=== PATIENT | female | born 1975 | race Caucasian/White ===

== ENCOUNTER 2020-05-30 12:00 | Outpatient (REF) | payer OTHER, SELFPAY ==
--- NOTE | 2020-05-30 | XR_ITS ---
EXAMINATION: XR CHEST CLINICAL INFORMATION: Covid positive COMPARISON: None TECHNIQUE: 2 views of the chest were obtained. FINDINGS: The cardiac and mediastinal contours are normal. The lungs are well inflated. The lungs are clear. There is no pleural effusion or pneumothorax. Bony structures are unremarkable. XR/XR chest 2V IMPRESSION: Unremarkable examination.
[2020-05-30 14:12] LABS: MANUAL DIFF FLAG NO
[2020-05-30 14:25] LABS: Basophils Percent Auto 0.4 % (0-2); Eosinophils Absolute Auto 0.1 X10*3/uL (0.0-0.4); Eosinophils Percent Auto 2.1 % (0-4); Hematocrit 43.8 % (37-47); Hemoglobin 14.2 g/dl (12.0-16.0); Imm Gran Abs Auto 0.02 X10*3/uL (0.00-0.03); Imm Gran Pct Auto 0.4 % (0.0-0.4); Lymphocytes Absolute Auto 1.3 X10*3/uL (1.2-4.9); Lymphocytes Percent Auto 25.8 % (20-40); Mean Corpuscular HGB Conc 32.4 g/dl (31.0-35.0); Mean Corpuscular Hemoglobin 29.2 pg (27.0-33.0); Mean Corpuscular Volume 90.1 fL (80-98); Mean Platelet Volume 10.2 fL (9.4-12.3); Monocytes Absolute Auto 0.4 X10*3/uL (0.1-1.2); Monocytes Percent Auto 8.3 % (2-11); Neutrophils Absolute Auto 3.3 X10*3/uL (2.0-8.3); Platelet Count 344 X10*3/uL (160-400); Red Blood Count 4.86 X10*6/uL (4.20-5.50); Red Cell Distribution Width 11.9 % (11.0-16.0); White Blood Count 5.2 X10*3/uL (4.8-10.8)
[2020-05-30 14:38] LABS: Alanine Aminotransferase 81 U/L (0-31); Alkaline Phosphatase 96 U/L (39-117); Anion Gap 12 (12-20); Aspartate Amino Transferase 28 U/L (5-31); Bilirubin Total 0.8 mg/dL (0.0-1.0); Blood Urea Nitrogen 17 mg/dL (9-16); C Reactive Protein 0.73 mg/dL (< or = 0.50); Calcium 8.7 mg/dL (8.4-10.2); Carbon Dioxide 31 mmol/L (22-29); Chloride 102 mmol/L (96-108); Estimated Glomerular Filt Rate > 60; Glucose Random 87 mg/dL (60-115); Potassium 3.4 mmol/l (3.3-5.1); Sodium 142 mmol/L (135-145); Total Protein 6.7 g/dL (6.5-8.0)
[2020-05-30 16:18] LABS: Erythrocyte Sedimentation Rate 26 MM/HR (0-20)
== END 2020-05-30 12:01 | disposition home or self-care (01) ==
LOC: HO.HMGCX 12:00
PROVIDERS: PCP Internal Medicine; Visit Provider Internal Medicine
DX: U07.1 COVID-19 (principal)
CPT/HCPCS: 36415; 71046; 80053; 85025; 85652; 86140

== ENCOUNTER 2020-08-19 08:50 | Outpatient (REF) | payer OTHER, SELFPAY ==
--- NOTE | ~2020-08-19 | MM_ITS ---
EXAMINATION: MM SCREENING DIGITAL BREAST TOMOSYNTHESIS, BILATERAL CLINICAL INFORMATION: Screening. Asymptomatic. The lifetime risk of breast cancer based on the Tyrer-Cuzick Model is 12%. COMPARISON: Mammography: 08/14/2019, 08/01/2018, 08/05/2015 TECHNIQUE: Digital breast tomosynthesis is performed in both the craniocaudal and mediolateral oblique views along with computer-aided detection (CAD). Synthesized 2D images are generated from the tomosynthesis. FINDINGS: There are scattered areas of fibroglandular density (ACR BI-RADS breast composition Category b). The right breast appears similar to prior exam with no developing density or interval mass or architectural abnormality. Neither breast shows abnormal calcifications. The bilateral axilla and skin contours are unremarkable. The left MLO view has asymmetric density posterior breast central aspect along posterior nipple line 7 cm from nipple. This may represent summation artifact. Patient will be recalled for additional imaging. MM/MM tomosynthesis screening BI IMPRESSION: 1. Left: Asymmetric density on MLO view 7 cm from nipple, possibly summation artifact or inhomogeneous glandular compression. 2. Right: No mammographic evidence of malignancy. ASSESSMENT: BI-RADS 0: Incomplete - Need Additional Imaging Evaluation RECOMMENDATION: 1. Additional views of the left breast (3-D spot MLO, 3-D ML). 2. Targeted ultrasound if warranted after review of the additional views. 3. Radiology department staff will contact the patient for additional imaging. This patient's information was entered into a reminder system with a target due date for their next mammogram.
== END 2020-08-19 08:51 | disposition home or self-care (01) ==
LOC: HO.MAMMO 08:50
PROVIDERS: PCP Internal Medicine; Visit Provider Internal Medicine
DX: Z12.31 Encounter for screening mammogram for malignant neoplasm of breast (principal)
CPT/HCPCS: 77063; 77067

== ENCOUNTER 2020-09-21 12:56 | Outpatient (REF) | payer OTHER, SELFPAY ==
--- NOTE | ~2020-09-21 | US_ITS ---
EXAMINATION: US DIAGNOSTIC ULTRASOUND BREAST, LEFT CLINICAL INFORMATION: Density deep. COMPARISON: Mammography of same day as well as August 19, 2020 and studies dating back to August 05, 2015. TECHNIQUE: Ultrasound of the breast is performed with real-time lomeli scale imaging and color Doppler. FINDINGS: Targeted left breast ultrasound demonstrated a few scattered simple cyst. No suspicious cystic or solid mass or region of abnormal distal sound shadowing was appreciated. Results are discussed with the patient at time of visit. US/US breast LT limited IMPRESSION: Some persistence of density but similar in appearance to study of July 2015 on nontomosynthesis images. Recommend 6 month follow-up left breast mammogram. ASSESSMENT: BI-RADS 3: Probably Benign RECOMMENDATION: Diagnostic mammography in 6 months.
--- NOTE | ~2020-09-21 | MM_ITS ---
EXAMINATION: MM DIAGNOSTIC DIGITAL BREAST TOMOSYNTHESIS, LEFT US BREAST, LEFT TARGETED CLINICAL INFORMATION: Asymmetric density deep left breast on mediolateral oblique study. COMPARISON: Mammography: 08/19/2020 and studies dating back to 08/04/2015 TECHNIQUE: Digital breast tomosynthesis is performed. 2D images are generated from the tomosynthesis. The following views are obtained: Full-field 90 degree mediolateral view, spot compression exaggerated craniocaudal, mediolateral oblique views. Targeted left breast ultrasound. FINDINGS: There are scattered areas of fibroglandular density (ACR BI-RADS breast composition Category b). There is persistence of a density in the deep central aspect of the left breast but is similar in appearance to mediolateral oblique view of study of 08/04/2015. Targeted left breast ultrasound demonstrated a few scattered simple cysts. No suspicious cystic or solid mass or region of abnormal distal sound shadowing was appreciated. Results are discussed with the patient at time of visit. MM/MM tomosynthesis added views L IMPRESSION: Some persistence of density but similar in appearance to study of July 2015 on nontraumatic images. Recommend 6-month follow-up left breast mammogram. ASSESSMENT: BI-RADS 3: Probably Benign RECOMMENDATION: Diagnostic mammography in 6 months. This patient's information was entered into a reminder system with a target due date for their next mammogram.
== END 2020-09-21 12:57 | disposition home or self-care (01) ==
LOC: HO.MAMMO 12:56
PROVIDERS: PCP Internal Medicine; Visit Provider Internal Medicine
DX: R92.2 Inconclusive mammogram (principal)
CPT/HCPCS: 76642; 77061; 77065

== ENCOUNTER 2021-03-26 12:23 | Outpatient (REF) | payer OTHER, SELFPAY ==
--- NOTE | ~2021-03-26 | MM_ITS ---
EXAMINATION: MM DIAGNOSTIC DIGITAL BREAST TOMOSYNTHESIS, LEFT CLINICAL INFORMATION: Short interval six-month follow-up probable normal fibroglandular tissue, prior recall for question of asymmetric density. The lifetime risk of breast cancer based on the Tyrer-Cuzick Model is 11%. COMPARISON: Mammography: 09/21/2020, 08/19/2020 (BI-RADS 0, 08/14/2019, 08/01/2018, 08/05/2015 TECHNIQUE: Digital breast tomosynthesis is performed in both the craniocaudal and mediolateral oblique views along with computer-aided detection (CAD). Synthesized 2D images are generated from the tomosynthesis. Additional exaggerated left CC view is provided. FINDINGS: There are scattered areas of fibroglandular density (ACR BI-RADS breast composition Category b). Parenchymal pattern is similar to prior studies dating back to 2016 as noted on prior exam. There is no developing density or interval mass or architectural abnormality. No significant changes. Results are provided to the patient at time of visit by the technologist. MM/MM tomosynthesis diagnostic LT IMPRESSION: No mammographic evidence of malignancy. ASSESSMENT: BI-RADS 2: Benign RECOMMENDATION: Routine annual mammography screening. This patient's information was entered into a reminder system with a target due date for their next mammogram.
== END 2021-03-26 12:24 | disposition home or self-care (01) ==
LOC: HO.MAMMO 12:23
PROVIDERS: PCP Internal Medicine; Visit Provider Internal Medicine
DX: R92.2 Inconclusive mammogram (principal)
CPT/HCPCS: 77061; 77065

== ENCOUNTER 2021-04-30 12:26 | Outpatient (REF) | payer OTHER, SELFPAY ==
--- NOTE | ~2021-04-30 | XR_ITS ---
EXAMINATION: XR HAND RT MIN 3V XR HAND LT MIN 3V XR SHOULDER LT MIN 2V CLINICAL INFORMATION: Pain COMPARISON: None. TECHNIQUE: PA, oblique and lateral views of each hand 4 views of the left shoulder FINDINGS: Right hand: There is erosion at the radial base of the second proximal phalanx with overhanging edges. There is complete obliteration of the second fourth distal interphalangeal joints and narrowing of the third and fifth distal interphalangeal joint spaces. Central erosive changes present within the second and fourth distal interphalangeal joints. Mild degenerative change of the first carpometacarpal joint. Soft tissues unremarkable. Left hand: Mild joint space narrowing throughout the distal interphalangeal joints. No erosive changes. Mild degenerative changes of the first carpometacarpal joint. Left shoulder: No acute fracture or dislocation. Small marginal osteophytes along the acromioclavicular joint with mild erosive changes evident at the distal clavicular articular surface. Glenohumeral joint unremarkable. Soft tissues unremarkable. XR/XR hand LT min 3V IMPRESSION: * Nonspecific erosion at the radial base of the RIGHT second proximal phalanx with overhanging edges, the appearance of which can be seen in association with gout, although this singular finding in isolation would be unusual for gout. * Degenerative changes present throughout the distal interphalangeal joints with central erosions evident within the RIGHT second and fourth distal interphalangeal joints. This raises the possibility of erosive osteoarthritis. * Mild degenerative changes of the LEFT acromioclavicular joint, with mild distal clavicular osteolysis evident.
--- NOTE | ~2021-04-30 | XR_ITS ---
EXAMINATION: XR HAND RT MIN 3V XR HAND LT MIN 3V XR SHOULDER LT MIN 2V CLINICAL INFORMATION: Pain COMPARISON: None. TECHNIQUE: PA, oblique and lateral views of each hand 4 views of the left shoulder FINDINGS: Right hand: There is erosion at the radial base of the second proximal phalanx with overhanging edges. There is complete obliteration of the second fourth distal interphalangeal joints and narrowing of the third and fifth distal interphalangeal joint spaces. Central erosive changes present within the second and fourth distal interphalangeal joints. Mild degenerative change of the first carpometacarpal joint. Soft tissues unremarkable. Left hand: Mild joint space narrowing throughout the distal interphalangeal joints. No erosive changes. Mild degenerative changes of the first carpometacarpal joint. Left shoulder: No acute fracture or dislocation. Small marginal osteophytes along the acromioclavicular joint with mild erosive changes evident at the distal clavicular articular surface. Glenohumeral joint unremarkable. Soft tissues unremarkable. XR/XR shoulder LT min 2V IMPRESSION: * Nonspecific erosion at the radial base of the RIGHT second proximal phalanx with overhanging edges, the appearance of which can be seen in association with gout, although this singular finding in isolation would be unusual for gout. * Degenerative changes present throughout the distal interphalangeal joints with central erosions evident within the RIGHT second and fourth distal interphalangeal joints. This raises the possibility of erosive osteoarthritis. * Mild degenerative changes of the LEFT acromioclavicular joint, with mild distal clavicular osteolysis evident.
--- NOTE | ~2021-04-30 | XR_ITS ---
EXAMINATION: XR HAND RT MIN 3V XR HAND LT MIN 3V XR SHOULDER LT MIN 2V CLINICAL INFORMATION: Pain COMPARISON: None. TECHNIQUE: PA, oblique and lateral views of each hand 4 views of the left shoulder FINDINGS: Right hand: There is erosion at the radial base of the second proximal phalanx with overhanging edges. There is complete obliteration of the second fourth distal interphalangeal joints and narrowing of the third and fifth distal interphalangeal joint spaces. Central erosive changes present within the second and fourth distal interphalangeal joints. Mild degenerative change of the first carpometacarpal joint. Soft tissues unremarkable. Left hand: Mild joint space narrowing throughout the distal interphalangeal joints. No erosive changes. Mild degenerative changes of the first carpometacarpal joint. Left shoulder: No acute fracture or dislocation. Small marginal osteophytes along the acromioclavicular joint with mild erosive changes evident at the distal clavicular articular surface. Glenohumeral joint unremarkable. Soft tissues unremarkable. XR/XR hand RT min 3V IMPRESSION: * Nonspecific erosion at the radial base of the RIGHT second proximal phalanx with overhanging edges, the appearance of which can be seen in association with gout, although this singular finding in isolation would be unusual for gout. * Degenerative changes present throughout the distal interphalangeal joints with central erosions evident within the RIGHT second and fourth distal interphalangeal joints. This raises the possibility of erosive osteoarthritis. * Mild degenerative changes of the LEFT acromioclavicular joint, with mild distal clavicular osteolysis evident.
[2021-04-30 13:56] LABS: MANUAL DIFF FLAG NO
[2021-04-30 14:00] LABS: Basophils Percent Auto 0.3 % (0-2); Eosinophils Absolute Auto 0.2 X10*3/uL (0.0-0.4); Eosinophils Percent Auto 3.1 % (0-4); Hemoglobin 14.2 g/dl (12.0-16.0); Imm Gran Abs Auto 0.03 X10*3/uL (0.00-0.03); Imm Gran Pct Auto 0.5 % (0.0-0.4); Lymphocytes Absolute Auto 1.4 X10*3/uL (1.2-4.9); Lymphocytes Percent Auto 24.4 % (20-40); Mean Corpuscular HGB Conc 32.3 g/dl (31.0-35.0); Mean Corpuscular Hemoglobin 29.8 pg (27.0-33.0); Mean Corpuscular Volume 92.2 fL (80.0-98.0); Mean Platelet Volume 9.7 fL (9.4-12.3); Monocytes Absolute Auto 0.4 X10*3/uL (0.1-1.2); Monocytes Percent Auto 6.6 % (2-11); Neutrophils Absolute Auto 3.8 x10*3/uL (2.0-8.3); Neutrophils Percent Auto 65.1 % (45-73); Platelet Count 341 X10*3/uL (160-400); Red Blood Count 4.77 X10*6/uL (4.20-5.50); Red Cell Distribution Width 12.3 % (11.0-16.0); White Blood Count 5.9 X10*3/uL (4.8-10.8)
[2021-04-30 14:18] LABS: Alanine Aminotransferase 57 U/L (0-31); Albumin Level 4.1 g/dL (3.5-5.0); Alkaline Phosphatase 100 U/L (39-117); Anion Gap 11 (12-20); Aspartate Amino Transferase 26 U/L (5-31); Bilirubin Total 0.5 mg/dL (0.0-1.0); Blood Urea Nitrogen 10 mg/dL (9-16); C Reactive Protein 1.24 mg/dL (< or = 0.50); Calcium 8.7 mg/dL (8.4-10.2); Carbon Dioxide 27 mmol/L (22-29); Chloride 108 mmol/L (96-108); Cholesterol 199 mg/dL; Estimated Glomerular Filt Rate > 60; Glucose Fasting 96 mg/dL (60-99); HDL Cholesterol 42 mg/dL; LDL Cholesterol Calculated 140 mg/dl; Potassium 4.1 mmol/L (3.3-5.1); Rheumatoid Factor < 15.0 IU/mL (<15.0); Sodium 142 mmol/L (135-145); Total Protein 6.8 g/dL (6.5-8.0); Triglycerides 87 mg/dL
[2021-04-30 14:39] LABS: Vitamin D 25-OH Total 33.9 ng/mL (>30)
[2021-04-30 14:53] LABS: Erythrocyte Sedimentation Rate 25 MM/HR (0-20)
== END 2021-04-30 12:27 | disposition home or self-care (01) ==
LOC: HO.HMGCLDS 12:26
PROVIDERS: Visit Provider Internal Medicine
DX: M25.512 Pain in left shoulder (principal); M25.541 Pain in joints of right hand; M79.645 Pain in left finger(s); I10 Essential (primary) hypertension; E03.9 Hypothyroidism, unspecified
CPT/HCPCS: 36415; 73030; 73130; 80053; 80061; 82306; 84443; 85025; 85652; 86140; 86431

== ENCOUNTER 2021-08-07 14:53 | Emergency (ER) | payer OTHER, SELFPAY ==
--- NOTE | ~2021-08-07 | XR_ITS ---
EXAMINATION: XR CHEST CLINICAL INFORMATION: Left-sided chest pain radiating to shoulder COMPARISON: Previous chest x-ray May 2020 TECHNIQUE: Frontal view of the chest was obtained. FINDINGS: No significant abnormality is noted involving the heart, lungs, mediastinum, bony thorax or soft tissues. XR/XR chest 1V IMPRESSION: Unremarkable examination.
--- NOTE | 2021-08-07 15:00 | ECG_ITS ---
Test Reason : chest pain Blood Pressure : / mmHG Vent. Rate : 094 BPM Atrial Rate : 094 BPM P-R Int : 142 ms QRS Dur : 076 ms QT Int : 346 ms P-R-T Axes : 000 009 044 degrees QTc Int : 432 ms Normal sinus rhythm Nonspecific ST abnormality Abnormal ECG When compared with ECG of 20-MAR-2003 00:00, Vent. rate has increased BY 35 BPM Nonspecific T wave abnormality now evident in Lateral leads Referred By: Generic ED Physician Electronically Signed By:Dejuan Tierney
[2021-08-07 16:15] VITALS: BP 141/93; PULSE 91; RESP 18; TEMP 37; O2SAT 99; BMI 29.5
[2021-08-07 16:55] LABS: MANUAL DIFF FLAG NO
[2021-08-07 16:58] LABS: Basophils Percent Auto 0.3 % (0-2); Eosinophils Absolute Auto 0.2 X10*3/uL (0.0-0.4); Eosinophils Percent Auto 2.8 % (0-4); Hematocrit 44.2 % (37.0-47.0); Hemoglobin 14.4 g/dl (12.0-16.0); Imm Gran Abs Auto 0.01 X10*3/uL (0.00-0.03); Imm Gran Pct Auto 0.2 % (0.0-0.4); Lymphocytes Absolute Auto 1.5 X10*3/uL (1.2-4.9); Lymphocytes Percent Auto 25.5 % (20-40); Mean Corpuscular HGB Conc 32.6 g/dl (31.0-35.0); Mean Corpuscular Hemoglobin 29.8 pg (27.0-33.0); Mean Corpuscular Volume 91.3 fL (80.0-98.0); Mean Platelet Volume 9.5 fL (9.4-12.3); Monocytes Absolute Auto 0.5 X10*3/uL (0.1-1.2); Monocytes Percent Auto 8.5 % (2-11); Neutrophils Absolute Auto 3.6 x10*3/uL (2.0-8.3); Neutrophils Percent Auto 62.7 % (45-73); Platelet Count 301 X10*3/uL (160-400); Red Blood Count 4.84 X10*6/uL (4.20-5.50); Red Cell Distribution Width 12.6 % (11.0-16.0); White Blood Count 5.8 X10*3/uL (4.8-10.8)
[2021-08-07 17:10] LABS: Alanine Aminotransferase 29 U/L (0-31); Albumin Level 4.2 g/dL (3.5-5.0); Alkaline Phosphatase 75 U/L (39-117); Anion Gap 12 (12-20); Aspartate Amino Transferase 19 U/L (5-31); Bilirubin Total 0.6 mg/dL (0.0-1.0); Blood Urea Nitrogen 18 mg/dL (9-16); Calcium 9.7 mg/dL (8.4-10.2); Carbon Dioxide 29 mmol/L (22-29); Chloride 103 mmol/L (96-108); Creatinine Clr Calc Pharmacy 97.2; Estimated Glomerular Filt Rate > 60; Glucose Random 93 mg/dL (60-115); Potassium 3.8 mmol/L (3.3-5.1); Sodium 140 mmol/L (135-145); Total Protein 7.1 g/dL (6.5-8.0)
[2021-08-07 17:15] LABS: Troponin-I High Sensitivity < 3.5 ng/L (<3.5-17.0)
--- NOTE | 2021-08-07 20:32 | ED_ITS ---
HPI - Chest Pain General Chief Complaint: Chest Pain Stated Complaint: chest discomfort/pain in left shoulder Time Seen by Provider: 08/07/21 20:07 Source: patient and family (, [place]) Mode of arrival: ambulatory Limitations: no limitations History of Present Illness HPI narrative: 46-year-old female who presents emergency department for evaluation of chest pain x1 and half weeks. She describes the chest pain as a heaviness in the center of her chest with a sharp pain under her left clavicle and left chest radiating to her left shoulder. She states the pain is 8/10 at its worst. states that the chest pain has been intermittent over the past 1 and half weeks. She states that the pain comes on frequently and lasts seconds to minutes. She states that today the pain was coming on every 30 minutes and lasting 1-2 minutes at the most. She denied associated dizziness, lightheadedness, diaphoresis, nausea, vomiting. She states she does have some dyspnea on exertion but denies shortness of breath at rest. She states she has had increased fatigue. The patient states that she works for [employer] and she works 14 hour days working on [employer]. 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 She states that occasionally she notices swelling in her legs but she has had no pain in her legs. Patient states that she does have shoulder pain occasional eyes difficulty putting her shirt on has difficulty lifting her left shoulder overhead. She states that she takes Celebrex for joint pain. MD complaint: chest pain and chest heaviness Onset (ago): week(s) (1.5) Timing of current episode: episodic Prior episodes: No Onset: other (Not related to activity level) Pain location: substernal and left chest Pain radiation: left arm (Left shoulder) Severity: severe Pain scale (0-10): 8 Quality: heaviness and sharp Relieving factors: nothing Exacerbating factors: nothing Associated symptoms: dyspnea Treatment prior to arrival: none Risk Factors Coronary artery disease risk factors: hypertension Related Data Allergies Allergy/AdvReac Type Severity Reaction Status Date / Time No Known Allergies Allergy Verified 08/07/21 16:15 [No Known Allergies*] Review of Systems Review of Systems: Yes all other systems are reviewed and are negative [facility] Past Medical History [facility] Narrative: Past medical history: Hypertension, GERD, hypothyroidism, TIA when she was in her 20s, diverticulitis. Past surgical history: Hysterectomy 2 years prior, bowel resection 5 years prior secondary to recurrent diverticulitis. Social history: She is in her asthma is here in the emergency department with her. She denies tobacco use. She states she occasionally drinks alcohol. She denies drug use. Medical History TIA (transient ischemic attack) Social History Social History Advance Directives: No Physical Exam 2 Vital Signs: Vital Signs: Last Vital Signs Temp 98.6 F 08/07/21 16:15 Pulse 91 08/07/21 16:15 Resp 18 08/07/21 16:15 BP 141/93 H 08/07/21 16:15 Pulse Ox 99 08/07/21 16:15 BMI result Body Mass Index 29.5 Const: General: cooperative and no acute distress Orientation/consciousness: oriented to person and oriented to place Limitations: no limitations HENMT: Head: Yes normal to inspection, Yes normocephalic and Yes atraumatic Ears: external ears normal General nose exam: Normal external nose present Face and sinus: Yes normal facial exam Mouth: Normal oral and palatal mucosa present Throat: Yes posterior oropharynx normal Eyes: General: appearance normal, both eyes and all related structures Pupils: Equal, round and reactive pupils present Neck: Neck: Yes normal visual inspection, Yes no lymphadenopathy, Yes trachea midline and Yes supple Chest: Chest palpation & inspection: normal inspection of the chest and tende rness sternum ([id number]) and costochondral junction (Moderate, left chest) Resp: Effort & Inspection: normal respiratory effort and able to speak in complete sentences Auscultation: clear to auscultation bilaterally Cardio: Rate: regular rate Rhythm: regular rhythm Heart sounds: S1 normal heart sound present, S2 normal heart sound present and no murmurs GI: Inspection: Yes normal to inspection Palpation (GI): Soft to palpation, nontender and no guarding Auscultation: normal bowel sounds : General: Yes no CVA tenderness Back/Spine/Pelvis: Back: no CVA tenderness Skin: General skin exam: no rashes or lesions noted Neuro: General: oriented to person and oriented to place Cranial nerves: Yes CN's II-XII intact bilaterally and Yes Equal, round and reactive pupils present Cognition (Neuro): normal cognition Motor exam (neuro): 5/5 motor strength present throughout Extrem: General: Yes normal to inspection Psych: Appearance: grossly normal Speech and movement: Normal speech and movement present Affect: normal affect Attitude: cooperative Thought process: Normal thought process present Thought content: Normal thought content present Course Course Course Narrative: 46-year-old female who presents emergency department for evaluation of left- sided chest pain radiating to her left shoulder x1 half weeks. The patient has had multiple episodes per day that are not associated with her exertion level. The episodes will last minutes. She states that today the episodes were more frequent, this concerned her and she came to the emergency department for evaluation. Patient's only significant cardiac risk factor is hypertension. The patient initial vital signs revealed a blood pressure of 141/93 with an O2 saturation of 99% on room air. Patient's chest wall exam did reveal tenderness palpation of her sternum and left chest costochondral joints. The patient had a CBC, CMP and high sensitivity troponin. These tests were unremarkable and the troponin was below detectable limits which is very reassuring. Twelve EKG revealed no acute abnormalities and the chest x-ray revealed no acute abnormalities to explain her pain. At this time, I believe that the patient's pain is more consistent with costochondritis and is very atypical for coronary artery disease. Also I do not think that she has a P is the cause of her symptoms given her description of the pain. Patient was advised to stop her Celebrex for 4 days. She was advised to take ibuprofen and Tylenol the next 4 days. She is to apply ice and heat to her chest wall to see if this improves pain. She was given printed and verbal instructions and advised return emergency department her symptoms get worse or stools any symptoms that are concerning to her. MDM - Chest Pain Lab Data Result diagrams: 08/07/21 16:49 08/07/21 16:49 Labs: Lab Results 08/07/21 08/07/21 08/07/21 Range/Units 16:49 16:49 16:49 WBC 5.8 (4.8-10.8) X10*3/uL RBC 4.84 (4.20-5.50) X10*6/uL Hgb 14.4 (12.0-16.0) g/dl Hct 44.2 (37.0-47.0) % MCV 91.3 (80.0-98.0) fL MCH 29.8 (27.0-33.0) pg MCHC 32.6 (31.0-35.0) g/dl RDW 12.6 (11.0-16.0) % Plt Count 301 (160-400) X10*3/uL MPV 9.5 (9.4-12.3) fL Immature Gran % (Auto) 0.2 (0.0-0.4) % Neut % (Auto) 62.7 (45-73) % Lymph % (Auto) 25.5 (20-40) % Cook % (Auto) 8.5 (2-11) % Eos % (Auto) 2.8 (0-4) % Baso % (Auto) 0.3 (0-2) % Lymph # (Auto) 1.5 (1.2-4.9) X10*3/uL Cook # (Auto) 0.5 (0.1-1.2) X10*3/uL Eos # (Auto) 0.2 (0.0-0.4) X10*3/uL Baso # (Auto) 0.0 (0.0-0.2) X10*3/uL Abs Immat Gran (auto) 0.01 (0.00-0.03) X10*3/uL Absolute Neuts (auto) 3.6 (2.0-8.3) x10*3/uL Absolute Nucleated RBC 0.000 (0.0-0.012) X10*3/uL Nucleated RBC % (auto) 0.0 (0.0-0.2) /100WBC Sodium 140 (135-145) mmol/L Potassium 3.8 (3.3-5.1) mmol/L Chloride 103 (96-108) mmol/L Carbon Dioxide 29 (22-29) mmol/L Anion Gap 12 (12-20) BUN 18 H (9-16) mg/dL Creatinine 0.83 (0.5-1.4) mg/dL Estim Creat Clear Calc 97.2 Estimated GFR > 60 Random Glucose 93 (60-115) mg/dL Calcium 9.7 D (8.4-10.2) mg/dL Total Bilirubin 0.6 (0.0-1.0) mg/dL AST 19 (5-31) U/L ALT 29 (0-31) U/L Alkaline Phosphatase 75 D (39-117) U/L Troponin I High Sens < 3.5 (<3.5-17.0) ng/L Total Protein 7.1 (6.5-8.0) g/dL Albumin 4.2 (3.5-5.0) g/dL ECG Data ECG #1: Interpretation: 1527: Normal sinus rhythm rate of 94, normal MA interval, QRS duration QTC interval, no ST segment elevation, no ST segment depression, no PACs, no PVCs, no Q-waves. This is a normal EKG. Discharge Plan Discharge Clinical Impression: Atypical chest pain, Acute costochondritis Patient Disposition: Home, Self-Care Instructions: Costochondritis (ED) Additional Instructions: Your EKG was normal. Your chest x-ray was unremarkable. Your high sensitivity troponin I was below detectable limits which is reassuring suggesting that you have not had a heart attack as the cause of your chest pain. Your complete blood count (CBC) and comprehensive metabolic panel (CMP) was also unremarkable. Your exam did reveal tenderness with push of your left chest wall and that I believe that your pain is caused by inflammation of your chest joints (costochondritis). Stop taking Celebrex for 4 days. Take ibuprofen 200 mg pills, 3 pills every 6 hours as needed for pain. Take Tylenol (acetaminophen) 500 mg pills, 2 pills every 4 to 6 hours as needed for pain. Back Pain Discharge Instructions: Apply ice for 15 minutes to the area that hurts on your chest, then apply a heating a pad on low for 15 minutes. Do this 4-6 times a day to help reduce the pain in your chest. Continue with normal activities as tolerated since staying in bed and not moving around will make your pain worse. Please return to the Emergency Department or see your doctor immediately if your symptoms get worse or if you develop any new symptoms that are concerning you. Follow up with your doctor in 2 day. Please read the other printed discharge instructions on costochondritis. Please see the work note Stand Alone Forms: Work/School Release
== END 2021-08-07 20:53 | disposition home or self-care (01) ==
PROVIDERS: Emergency Provider Emergency Medicine Emergency Medical Services; PCP Internal Medicine
DX: R07.89 Other chest pain (principal); M94.0 Chondrocostal junction syndrome [Tietze]; M25.512 Pain in left shoulder; R06.02 Shortness of breath; Z79.899 Other long term (current) drug therapy
CPT/HCPCS: 36415; 71045; 80053; 84484; 85025; 93005; 99283

== ENCOUNTER 2021-08-25 10:02 | Outpatient (REF) | payer OTHER, SELFPAY ==
--- NOTE | ~2021-08-25 | MM_ITS ---
EXAMINATION: MM SCREENING DIGITAL BREAST TOMOSYNTHESIS, BILATERAL CLINICAL INFORMATION: Screening. Asymptomatic. The lifetime risk of breast cancer based on the Tyrer-Cuzick Model is 10.6%. COMPARISON: Mammography: March 26, 2021 and studies dating back to August 05, 2015 TECHNIQUE: Digital breast tomosynthesis is performed in both the craniocaudal and mediolateral oblique views along with computer-aided detection (CAD). Synthesized 2D images are generated from the tomosynthesis. FINDINGS: There are scattered areas of fibroglandular density (ACR BI-RADS breast composition Category b). There is a stable parenchymal pattern of the right breast. Within the deep medial aspect of the left breast there is a 7 mm poorly circumscribed density approximately 7 cm from the nipple for which spot compression view is recommended. MM/MM tomosynthesis screening BI IMPRESSION: Medial left breast density for further evaluation with spot compression view and possible ultrasound. ASSESSMENT: BI-RADS 0: Incomplete - Need Additional Imaging Evaluation RECOMMENDATION: 1. Additional views of the left breast 2. Targeted ultrasound if warranted after review of the additional views. 3. Radiology department staff will contact the patient for additional imaging. This patient's information was entered into a reminder system with a target due date for their next mammogram.
== END 2021-08-25 10:03 | disposition home or self-care (01) ==
LOC: HO.MAMMO 10:02
PROVIDERS: PCP Internal Medicine; Visit Provider Internal Medicine
DX: Z12.31 Encounter for screening mammogram for malignant neoplasm of breast (principal)
CPT/HCPCS: 77063; 77067

== ENCOUNTER 2021-09-10 14:32 | Outpatient (REF) | payer OTHER, SELFPAY ==
--- NOTE | ~2021-09-10 | MM_ITS ---
EXAMINATION: MM DIAGNOSTIC DIGITAL BREAST TOMOSYNTHESIS, LEFT US DIAGNOSTIC ULTRASOUND BREAST, LEFT CLINICAL INFORMATION: Recall from screening for waxing and waning nodularity posterior medial breast. COMPARISON: Mammography: 08/25/2021, 03/26/2021, 09/21/2020, 08/19/2020, 08/14/2019, targeted left breast ultrasound 09/21/2020. TECHNIQUE: Digital breast tomosynthesis is performed. 2D images are generated from the tomosynthesis. The following views are obtained: Spot CC, standard ML. Ultrasound left breast is targeted to the posterior medial breast using grayscale imaging and color Doppler without and with harmonics. FINDINGS: There are scattered areas of fibroglandular density (ACR BI-RADS breast composition Category b). The additional views confirm a smooth 4 mm circumscribed nodule posterior 9:00 left breast. In retrospect, finding is also suggested on tomography 2020 and 2019, previously 3 mm. There is no spiculation or associated calcification. Ultrasound demonstrates a simple cyst 9:00 position 7 cm from nipple measuring 4 x 3 mm. Cyst is anechoic and circumscribed and there is mild increased through-transmission of sound. No peripheral or internal color flow. This corresponds to the finding on mammography. Results are discussed with the patient at time of visit. MM/MM tomosynthesis added views L IMPRESSION: Small cyst posterior medial left breast corresponding to mammography. ASSESSMENT: BI-RADS 2: Benign RECOMMENDATION: Routine annual mammography screening. This patient's information was entered into a reminder system with a target due date for their next mammogram.
== END 2021-09-10 14:33 | disposition home or self-care (01) ==
LOC: HO.MAMMO 14:32
PROVIDERS: PCP Internal Medicine; Visit Provider Internal Medicine
DX: N63.20 Unspecified lump in the left breast, unspecified quadrant (principal)
CPT/HCPCS: 76642; 77061; 77065

== ENCOUNTER 2022-03-25 13:52 | Outpatient (REF) | payer BC, SELFPAY ==
--- NOTE | ~2022-03-25 | US_ITS ---
EXAMINATION: US VENOUS ULTRASOUND WITH DOPPLER LOWER EXTREMITY, LEFT CLINICAL INFORMATION: Left calf pain. Rule out DVT. COMPARISON: None TECHNIQUE: Ultrasound of the deep veins is performed from the hip to the calf with compression sonography and color and pulse Doppler assessment. Spectral analysis with color-flow imaging is performed. FINDINGS: There is normal venous compression and respiratory variation and augmented flow. The visualized common femoral vein, superficial femoral vein, profunda femoral vein, popliteal vein, and the trifurcation region shows no evidence of deep venous thrombosis. There is no significant popliteal fossa cyst. If the patient's symptoms persist, followup ultrasound in 5 days 7 days might be of value to exclude proximal propagation from a non-visualized calf vein. US/US venous duplex LE IMPRESSION: No DVT demonstrated in the left lower extremity.
== END 2022-03-25 13:53 | disposition home or self-care (01) ==
LOC: HO.US 13:52
PROVIDERS: PCP Internal Medicine; Visit Provider Internal Medicine
DX: M79.662 Pain in left lower leg (principal)
CPT/HCPCS: 93971

== ENCOUNTER 2022-05-23 09:24 | Outpatient (REF) | payer BC, SELFPAY ==
[2022-05-23 11:26] LABS: MANUAL DIFF FLAG NO
[2022-05-23 11:40] LABS: Basophils Percent Auto 0.6 % (0-2); Eosinophils Absolute Auto 0.1 X10*3/uL (0.0-0.4); Eosinophils Percent Auto 2.3 % (0-4); Hematocrit 46.5 % (37.0-47.0); Hemoglobin 15.1 g/dl (12.0-16.0); Imm Gran Abs Auto 0.01 X10*3/uL (0.00-0.03); Imm Gran Pct Auto 0.2 % (0.0-0.4); Lymphocytes Absolute Auto 1.2 X10*3/uL (1.2-4.9); Lymphocytes Percent Auto 23.8 % (20-40); Mean Corpuscular HGB Conc 32.5 g/dl (31.0-35.0); Mean Corpuscular Hemoglobin 29.3 pg (27.0-33.0); Mean Corpuscular Volume 90.1 fL (80.0-98.0); Monocytes Absolute Auto 0.4 X10*3/uL (0.1-1.2); Monocytes Percent Auto 8.2 % (2-11); Neutrophils Absolute Auto 3.3 x10*3/uL (2.0-8.3); Neutrophils Percent Auto 64.9 % (45-73); Platelet Count 329 X10*3/uL (160-400); Red Blood Count 5.16 X10*6/uL (4.20-5.50); Red Cell Distribution Width 12.8 % (11.0-16.0); White Blood Count 5.1 X10*3/uL (4.8-10.8)
[2022-05-23 13:20] LABS: Alanine Aminotransferase 39 U/L (0-31); Albumin Level 4.4 g/dL (3.5-5.0); Alkaline Phosphatase 80 U/L (39-117); Anion Gap 13 (12-20); Aspartate Amino Transferase 23 U/L (5-31); Bilirubin Total 0.8 mg/dL (0.0-1.0); Blood Urea Nitrogen 21 mg/dL (9-16); Calcium 9.5 mg/dL (8.4-10.2); Carbon Dioxide 28 mmol/L (22-29); Chloride 103 mmol/L (96-108); Cholesterol 196 mg/dL; Estimated Glomerular Filt Rate > 60; Glucose Fasting 124 mg/dL (60-99); HDL Cholesterol 50 mg/dL; LDL Cholesterol Calculated 132 mg/dl; Potassium 3.6 mmol/L (3.3-5.1); Sodium 140 mmol/L (135-145); Thyroid Stimulating Hormone 0.63 uIU/mL (0.32-4.0); Total Protein 7.1 g/dL (6.5-8.0); Triglycerides 72 mg/dL; Vitamin D 25-OH Total 34.4 ng/mL (>30)
== END 2022-05-23 09:25 | disposition home or self-care (01) ==
LOC: HO.HMGCLDS 09:24
PROVIDERS: PCP Internal Medicine; Visit Provider Internal Medicine
DX: E03.9 Hypothyroidism, unspecified (principal); I10 Essential (primary) hypertension; M15.9 Polyosteoarthritis, unspecified
CPT/HCPCS: 36415; 80053; 80061; 82306; 84443; 85025

== ENCOUNTER 2022-09-14 09:05 | Outpatient (REF) | payer BC, SELFPAY ==
--- NOTE | ~2022-09-14 | MM_ITS ---
EXAMINATION: MM SCREENING DIGITAL BREAST TOMOSYNTHESIS, BILATERAL CLINICAL INFORMATION: Screening. Asymptomatic. The lifetime risk of breast cancer based on the Tyrer-Cuzick Model is 12%. COMPARISON: Multiple prior mammography exams, most recent 09/10/2021; targeted left breast ultrasound 09/10/2021, 09/21/2020. TECHNIQUE: Digital breast tomosynthesis is performed in both the craniocaudal and mediolateral oblique views along with computer-aided detection (CAD). Synthesized 2D images are generated from the tomosynthesis. FINDINGS: There are scattered areas of fibroglandular density (ACR BI-RADS breast composition Category b). There is fine fibronodular parenchymal pattern. No significant mass, architectural abnormality, or abnormal calcifications. There is a known cyst posterior medial left breast again seen. Small circumscribed nodule upper outer right breast is without significant change. The axilla and skin contours are unremarkable. MM/MM tomosynthesis screening BI IMPRESSION: No significant changes from prior studies. ASSESSMENT: BI-RADS 2: Benign RECOMMENDATION: Routine annual mammography screening. This patient's information was entered into a reminder system with a target due date for their next mammogram.
== END 2022-09-14 09:06 | disposition home or self-care (01) ==
LOC: HO.MAMMO 09:05
PROVIDERS: PCP Internal Medicine; Visit Provider Internal Medicine
DX: Z12.31 Encounter for screening mammogram for malignant neoplasm of breast (principal)
CPT/HCPCS: 77063; 77067

== ENCOUNTER 2023-04-16 09:28 | Outpatient (REF) | payer BC, SELFPAY ==
[2023-04-16 11:15] LABS: MANUAL DIFF FLAG NO
[2023-04-16 11:29] LABS: Basophils Percent Auto 0.5 % (0-2); Eosinophils Absolute Auto 0.2 X10*3/uL (0.0-0.4); Eosinophils Percent Auto 3.4 % (0-4); Hematocrit 44.5 % (37.0-47.0); Hemoglobin 14.4 g/dl (12.0-16.0); Imm Gran Abs Auto 0.01 X10*3/uL (0.00-0.03); Imm Gran Pct Auto 0.2 % (0.0-0.4); Lymphocytes Absolute Auto 1.2 X10*3/uL (1.2-4.9); Lymphocytes Percent Auto 27.9 % (20-40); Mean Corpuscular HGB Conc 32.4 g/dl (31.0-35.0); Mean Corpuscular Hemoglobin 29.3 pg (27.0-33.0); Mean Corpuscular Volume 90.4 fL (80.0-98.0); Mean Platelet Volume 9.8 fL (9.4-12.3); Monocytes Absolute Auto 0.3 X10*3/uL (0.1-1.2); Monocytes Percent Auto 7.8 % (2-11); Neutrophils Absolute Auto 2.6 x10*3/uL (2.0-8.3); Neutrophils Percent Auto 60.2 % (45-73); Platelet Count 317 X10*3/uL (160-400); Red Blood Count 4.92 X10*6/uL (4.20-5.50); Red Cell Distribution Width 12.9 % (11.0-16.0); White Blood Count 4.4 X10*3/uL (4.8-10.8)
[2023-04-16 12:15] LABS: Alanine Aminotransferase 39 U/L (0-31); Albumin Level 3.9 g/dL (3.5-5.0); Alkaline Phosphatase 72 U/L (39-117); Anion Gap 13 (12-20); Aspartate Amino Transferase 22 U/L (5-31); Bilirubin Total 0.5 mg/dL (0.0-1.0); Blood Urea Nitrogen 12 mg/dL (9-16); Calcium 8.9 mg/dL (8.4-10.2); Carbon Dioxide 26 mmol/L (22-29); Chloride 106 mmol/L (96-108); Cholesterol 182 mg/dL (<200); Estimated Glomerular Filt Rate > 60; Glucose Fasting 98 mg/dL (60-99); HDL Cholesterol 51 mg/dL (>40); LDL Cholesterol Calculated 121 mg/dL (<100); Potassium 3.5 mmol/L (3.3-5.1); Sodium 141 mmol/L (135-145); Total Protein 6.7 g/dL (6.5-8.0); Triglycerides 52 mg/dL (<150)
[2023-04-16 12:21] LABS: Thyroid Stimulating Hormone 0.01 uIU/mL (0.32-4.0); Vitamin D 25-OH Total 28.6 ng/mL (>30)
[2023-04-16 13:28] LABS: Appearance Urine Clear; Color Urine Yellow; Glucose Urine UA Negative (Negative); Leukocyte Esterase Urine Negative (Negative); Nitrite Urine Negative (Negative); Specific Gravity - Urine 1.015 (1.005-1.025); Urine Blood Negative (Negative); Urine Ketones Negative (Negative); Urine Protein Negative (Neg-Trace)
[2023-04-16 13:55] LABS: Bacteria Urine None Seen (None Seen); Hyaline Casts Urine 0-2 /LPF (0-2); RBC Urine 0-2 /HPF (0-2); Squamous Epithelial Cell Urine 0-2 /HPF (0-2); WBC Urine 0-5 /HPF (0-5)
== END 2023-04-16 09:29 | disposition home or self-care (01) ==
LOC: HO.HMGCLDS 09:28
PROVIDERS: PCP Internal Medicine; Visit Provider Internal Medicine
DX: I10 Essential (primary) hypertension (principal); E03.9 Hypothyroidism, unspecified; F41.9 Anxiety disorder, unspecified; M15.9 Polyosteoarthritis, unspecified; E55.9 Vitamin D deficiency, unspecified
CPT/HCPCS: 36415; 80053; 80061; 81001; 82306; 84443; 85025

== ENCOUNTER 2023-07-29 14:33 | Outpatient (REF) | payer BC, SELFPAY ==
[2023-07-29 16:53] LABS: Thyroid Stimulating Hormone 8.19 uIU/mL (0.32-4.0)
== END 2023-07-29 14:34 | disposition home or self-care (01) ==
LOC: HO.HMGCLDS 14:33
PROVIDERS: PCP Internal Medicine; Visit Provider Internal Medicine
DX: E03.9 Hypothyroidism, unspecified (principal)
CPT/HCPCS: 36415; 84443

== ENCOUNTER → 2023-09-20 08:15 | Outpatient (BNV) | payer BC, SELFPAY | PROVIDERS: PCP Internal Medicine; Visit Provider Radiology Diagnostic Radiology | DX: Z12.31 Encounter for screening mammogram for malignant neoplasm of breast (principal) | CPT/HCPCS: 77063; 77067 ==

== ENCOUNTER 2023-09-20 08:17 | Outpatient (REF) | payer BC, SELFPAY | END 2023-09-20 08:18 | disposition home or self-care (01) | LOC: HO.MAMMO 08:17 | PROVIDERS: PCP Internal Medicine; Visit Provider Internal Medicine | DX: Z12.31 Encounter for screening mammogram for malignant neoplasm of breast (principal) | CPT/HCPCS: 77063; 77067 ==

== ENCOUNTER 2024-04-05 10:32 | Day surgery (SDC) | payer BC, SELFPAY ==
[2024-04-01 14:01] VITALS: BMI 28.4
[2024-04-05 10:44] VITALS: BMI 27.8
[2024-04-05 11:00] VITALS: BP 128/84; PULSE 85; RESP 16; TEMP 36.6; O2SAT 95
--- NOTE | 2024-04-05 11:41 | HO.ANESPROP2 ---
HPI - Anesthesia Eval Consult details Narrative: 48 yo female patient for EGD, Colonoscopy [facility] Past Medical History Medical History Diverticulitis Anxiety Depression Arthritis Hiatal hernia GERD (gastroesophageal reflux disease) HTN (hypertension) TIA (transient ischemic attack) Family History Family history of problems with anesthesia: No Surgical History Surgical History Hx of resection of large bowel History of partial hysterectomy History of esophagogastroduodenoscopy (EGD) History of Problems with Anesthesia: No Social History Social History Are you a primary career development facilitator to a significant other at home: No Do you presently have visiting nurse or other home services: No Patient Tobacco Use Status: Never used Tobacco Use of substances other than those prescribed or required for medical reasons: No Have you been hit, kicked, punched, or otherwise hurt by someone within the past year? If so, by whom?: No Are you DNR?: No Advance Directives: No Advance Directives Information Provided: Yes Recently lost weight without trying: No Nutrition Risks: No Nutritional Risk Meds Allergies Allergy/AdvReac Type Severity Reaction Status Date / Time No Known Allergies Allergy Verified 08/07/21 16:15 [No Known Allergies*] Active Medications: Current Medications Sodium Biphosphate/Sodium Phosphate (Sodium Phosphate,Audrain-Dibasic 133 Ml Enema) 133 ml [place] ONCE PRN PRN Reason: Poor Colonoscopy Prep Results Home Medications ?Medication ?Instructions ?Recorded ?Confirmed ?Last Taken ?Type aspirin 81 mg tablet,delayed 81 mg PO DAILY 04/01/24 04/01/24 Unknown History release bupropion HCl 300 mg 24 hr tablet, 300 mg PO DAILY 04/01/24 04/01/24 Unknown History extended release hydrochlorothiazide 50 mg tablet 50 mg PO DAILY 04/01/24 04/01/24 Unknown History levothyroxine 175 mcg tablet 175 mcg PO DAILY 04/01/24 04/01/24 Unknown History (Synthroid) nabumetone 750 mg tablet 750 mg PO BID 04/01/24 04/01/24 Unknown History omeprazole 20 mg capsule,delayed 20 mg PO DAILY 04/01/24 04/01/24 Unknown History release Exam Height,Weight and Vital Signs: Height 5 ft 8 in Weight 83.064 kg Last Vital Signs Temp 97.9 F 04/05/24 11:00 Pulse 85 04/05/24 11:00 Resp 16 04/05/24 11:00 BP 128/84 04/05/24 11:00 Pulse Ox 95 04/05/24 11:00 O2 Del Method Room Air 04/05/24 11:00 Airway Mallampati Class: II TM Dist: >3cm Neck ROM: Full Loose/Missing/Broken Teeth: No Heart: RRR Lungs: CTAB Assessment and Plan Assessment Anesthesia Assessment: Anesthesia Plan Discussed and Chart Reviewed Final Anesthetic Review Family History of Problems with Anesthesia: No History of Problems with Anesthesia: No NPO: Yes ASA Class: III Final Preanesthetic Review: No Changes in Pt Med Stat, Meds/Allgs Chart Reviewed, Consent Obtained/Reviewed and Anes Risks/Benef Reviewed Patient Risk: Intermediate Procedure Risk: Low Assessment/Block/Sedation in SS: Assess/Block/Sedation-SS Anesthetic Plan Anesthetic Plan: TIVA Disposition: Standard PACU
[2024-04-05 13:24] VITALS: BP 115/81; PULSE 100; RESP 16; TEMP 36.7; O2SAT 97
--- NOTE | 2024-04-05 13:26 | PM.OP ---
Brief Operative Note Date of Service: 04/05/24 Pre-op diagnosis: GERD, Screening Post-op diagnosis: other (Hiatal hernia, Internal hemorrhoids) Procedure: EGD with biopsies, Colonoscopy to the cecum and TI Surgeon: Benny Sandoval MD Anesthesia: MAC Was an Handmade Tile Artist used for this Procedure?: No Estimated blood loss (mL): 2.0 Pathology: other (A. EG Junction at 35cm) Condition: stable Disposition: PACU
[2024-04-05 13:39] VITALS: BP 127/88; PULSE 78; RESP 16; TEMP 36.7; O2SAT 95
--- NOTE | 2024-04-05 15:00 | OP_ITS ---
DATE OF SERVICE: 04/05/2024 SURGEON: Benny Sandoval MD INDICATIONS: The patient presents for evaluation of gastroesophageal reflux and colorectal cancer screening. Full consent has been obtained from her for this, including risks of bleeding and perforation. PREOPERATIVE DIAGNOSIS: POSTOPERATIVE DIAGNOSIS: PROCEDURE PERFORMED: Esophagogastroduodenoscopy with biopsies, and colonoscopy to the cecum and terminal ileum. ESTIMATED BLOOD LOSS: COMPLICATIONS: ANESTHESIA: Monitored anesthesia care. ASSISTANTS: SPECIMENS: PREOPERATIVE DIAGNOSES: Gastroesophageal reflux and colorectal cancer screening. POSTOPERATIVE DIAGNOSES: Gastroesophageal reflux, colorectal cancer screening, hiatal hernia, and internal hemorrhoids. Normal anastomosis at 20 cm. DESCRIPTION OF PROCEDURE: The patient was placed in the left lateral decubitus position. The Olympus video gastroscope was passed in the posterior oropharynx and upper esophagus under direct vision. The scope was passed slowly to the distal esophagus. The gastroesophageal junction appeared at 35 cm. There was 1 area that was slightly irregular consistent with possible Hdez mucosa, but in general, the gastroesophageal junction appeared normal and there was no esophagitis. The scope entered the stomach. There was a small hiatal hernia. The scope was advanced to pylorus and the duodenum was cannulated to the descending portion. The duodenum including the bulb appeared normal without mass or ulceration. The scope was withdrawn back to the stomach. The gastric antrum and body appeared normal with good peristalsis. The scope was retroflexed, visualizing the proximal stomach carefully, which appeared normal, without any sign of mass or ulceration. The scope was straightened and withdrawn back to the esophagus. Biopsies were obtained at the EG junction at 35 cm in the area of irregularity to rule out Hdez mucosa. Proximal to this, the esophageal mucosa appeared normal. The scope was withdrawn from the patient. She was turned around for the colonoscopy. The digital rectal exam revealed no abnormalities. The Olympus video pediatric colonoscope was then entered into the rectum and advanced easily to the cecum. Once in the cecum, I did identify normal-appearing cecal pouch with appendiceal orifice and a normal-appearing ileocecal valve. The terminal ileum was cannulated and appeared normal. The scope was withdrawn back in the colon. The entire cecum and ileocecal valve appeared normal. The scope was slowly withdrawn assessing all mucosal surfaces carefully. Preparation was excellent. I did not visualize any sign of polyps, colitis, nor angiodysplasias. The anastomosis was seen at 20 cm and appeared normal. Once in the rectum, scope was retroflexed, visualizing internal hemorrhoids, but no other pathology. The rectal mucosa appeared normal. The scope was straightened and withdrawn from the patient. She tolerated both procedures well and was returned to the recovery area in stable condition. IMPRESSION: 1. Hiatal hernia, gastroesophageal reflux, rule out Hdez esophagus. 2. Internal hemorrhoids. PLAN: The results of the biopsies will be checked. If there is evidence of Hdez esophagus without dysplasia, I would recommend a repeat upper endoscopy in 3 years. She was advised to continue her omeprazole. Given the negative colonoscopy, I would recommend a followup colonoscopy in 10 years for further screening. She was advised to resume her aspirin by tomorrow. This has all been discussed with her . MD RACHAEL Cesar/FLOWER / [phone]
== END 2024-04-05 14:05 | disposition home or self-care (01) ==
PROVIDERS: PCP Internal Medicine; Visit Provider Internal Medicine
PROC: (CPT 45378; principal; 2024-04-05 11:30)
DX: Z12.11 Encounter for screening for malignant neoplasm of colon (principal); K64.8 Other hemorrhoids; K21.9 Gastro-esophageal reflux disease without esophagitis; K44.9 Diaphragmatic hernia without obstruction or gangrene; Z87.19 Personal history of other diseases of the digestive system; I10 Essential (primary) hypertension; F41.8 Other specified anxiety disorders; M19.90 Unspecified osteoarthritis, unspecified site; Z98.0 Intestinal bypass and anastomosis status; Z90.49 Acquired absence of other specified parts of digestive tract; Z79.899 Other long term (current) drug therapy; Z79.82 Long term (current) use of aspirin; Z86.73 Personal history of transient ischemic attack (TIA), and cerebral infarction without residual deficits
CPT/HCPCS: 45378; 43239; 88305; 88313; J1596; J2003; J2405; J2704

== ENCOUNTER 2024-05-14 09:20 | Outpatient (REF) | payer BC, SELFPAY ==
[2024-05-14 12:57] LABS: MANUAL DIFF FLAG NO
[2024-05-14 13:04] LABS: Basophils Percent Auto 0.7 % (0-2); Eosinophils Absolute Auto 0.1 X10*3/uL (0.0-0.4); Eosinophils Percent Auto 2.8 % (0-4); Hematocrit 42.5 % (37.0-47.0); Hemoglobin 14.4 g/dl (12.0-16.0); Imm Gran Abs Auto 0.01 X10*3/uL (0.00-0.03); Imm Gran Pct Auto 0.2 % (0.0-0.4); Lymphocytes Absolute Auto 1.2 X10*3/uL (1.2-4.9); Lymphocytes Percent Auto 27.7 % (20-40); Mean Corpuscular HGB Conc 33.9 g/dl (31.0-35.0); Mean Corpuscular Hemoglobin 30.6 pg (27.0-33.0); Mean Corpuscular Volume 90.2 fL (80.0-98.0); Mean Platelet Volume 9.7 fL (9.4-12.3); Monocytes Absolute Auto 0.3 X10*3/uL (0.1-1.2); Monocytes Percent Auto 7.4 % (2-11); Neutrophils Absolute Auto 2.6 x10*3/uL (2.0-8.3); Neutrophils Percent Auto 61.2 % (45-73); Platelet Count 320 X10*3/uL (160-400); Red Blood Count 4.71 X10*6/uL (4.20-5.50); Red Cell Distribution Width 12.8 % (11.0-16.0); White Blood Count 4.3 X10*3/uL (4.8-10.8)
[2024-05-14 13:24] LABS: Alanine Aminotransferase 38 U/L (0-31); Albumin Level 4.1 g/dL (3.5-5.0); Alkaline Phosphatase 74 U/L (39-117); Anion Gap 10 (12-20); Aspartate Amino Transferase 32 U/L (5-31); Bilirubin Total 0.6 mg/dL (0.0-1.0); Blood Urea Nitrogen 22 mg/dL (9-16); Carbon Dioxide 27 mmol/L (22-29); Chloride 106 mmol/L (96-108); Cholesterol 207 mg/dL (<200); Estimated Glomerular Filt Rate > 60; Glucose Fasting 104 mg/dL (60-99); HDL Cholesterol 52 mg/dL (>40); LDL Cholesterol Calculated 140 mg/dL (<100); Potassium 3.3 mmol/L (3.3-5.1); Sodium 140 mmol/L (135-145); Total Protein 7.1 g/dL (6.5-8.0); Triglycerides 78 mg/dL (<150)
[2024-05-14 13:42] LABS: Thyroid Stimulating Hormone 3.26 uIU/mL (0.32-4.0)
== END 2024-05-14 09:21 | disposition home or self-care (01) ==
LOC: HO.HMGCLDS 09:20
PROVIDERS: PCP Internal Medicine; Visit Provider Internal Medicine
DX: E03.9 Hypothyroidism, unspecified (principal); I10 Essential (primary) hypertension; M15.9 Polyosteoarthritis, unspecified
CPT/HCPCS: 36415; 80053; 80061; 82306; 84443; 85025

== ENCOUNTER 2024-05-26 17:24 | Outpatient (REF) | payer BC, SELFPAY | END 2024-05-26 17:25 | disposition home or self-care (01) | LOC: HO.HOSX 17:24 | PROVIDERS: Visit Provider Orthopaedic Surgery | DX: Z13.89 Encounter for screening for other disorder (principal) ==

== ENCOUNTER 2024-05-27 09:03 | Outpatient (AMB) | payer BC, SELFPAY ==
--- NOTE | 2024-05-27 09:10 | MHC.OFFVIS ---
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 Patient reports that she has had pain for about 2-3 months now. Patient reports worsening right lateral hip pain that radiates to the groin. Pain is felt all the time but worsened at night when flipping in bed, and with prolonged walking and standing. She takes Advil and Nabumetone for her sympoms which are not helpful. 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 Patient reports that she has had pain for about 2-3 months now. Patient reports worsening right lateral hip pain that radiates to the groin. Pain is felt all the time but worsened at night when flipping in bed, and with prolonged walking and standing. She takes Advil and Nabumetone for her symptoms which are not helpful. [facility] Medical History Diverticulitis Anxiety Depression Arthritis Hiatal hernia GERD (gastroesophageal reflux disease) HTN (hypertension) TIA (transient ischemic attack) Surgical History Hx of resection of large bowel History of partial hysterectomy History of esophagogastroduodenoscopy (EGD) Social History (Updated 05/27/24 @ 09:33 by Dolores Ariza CMA) Are you a primary respiratory care instructor to a significant other at home: No Do you presently have visiting nurse or other home services: No Patient Tobacco Use Status: Never used Tobacco Current occupational status: employed 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 Exam Vital Signs: BMI result Body Mass Index 28.1 Extrem Other: nl painless ROM bilateral hips pain over inguinal canal/pubis with SLR Otherwise unremarkable exam Results Reviewed Results Reviewed: I personally reviewed relevant radiographs. very mild bilateral hip OA Assessment & Plan Assessment & Plan (1) Sports hernia: Code(s): S39.81XA - Other specified injuries of abdomen, initial encounter Category: Medical Plan: PT f/u per Telehealth 6 weeks Orders: Orders XR pelvis 1-2V Today M25.559 - Pain in unspecified hip PT Evaluation and Treatment Today S39.81XA - Other specified injuries of abdomen, initial encounter Coding Level of Care Code New Pt Level 3 (65140) Diagnoses Sports hernia S39.81XA
[2024-05-27 09:30] VITALS: BMI 28.1
== END 2024-05-27 10:09 | disposition home or self-care (01) ==
PROVIDERS: PCP Internal Medicine; Visit Provider Orthopaedic Surgery
DX: M16.11 Unilateral primary osteoarthritis, right hip (principal); R10.30 Lower abdominal pain, unspecified
CPT/HCPCS: 99203

== ENCOUNTER 2024-05-27 11:19 | Outpatient (REF) | payer BC, SELFPAY | END 2024-05-27 11:20 | disposition home or self-care (01) | LOC: HO.HOSX 11:19 | PROVIDERS: Visit Provider Orthopaedic Surgery | DX: M25.559 Pain in unspecified hip (principal) | CPT/HCPCS: 72170 ==

== ENCOUNTER 2024-07-05 10:49 | Outpatient (AMB) | payer BC, SELFPAY ==
--- NOTE | 2024-07-05 10:49 | MHC.OFFVIS ---
Vital Signs 07/05/24 10:50 Height 5 ft 8 in Weight 165 lb BMI 25.1 Intake Visit Reasons: -6WK F/U Right hip pain Intake Note: Crystal is a 49 year old female who presents today for a follow up of her right hip/sports hernia. She has not yet attended PT, she is booked Friday. Patient reports that she is doing well she continues to have some pain and clicking. Allergies No Known Allergies [No Known Allergies*] Allergy (Verified 08/07/21 16:15) HPI HPI -6WK F/U Right hip pain: Details: Crystal is a 49 year old female who presents today for a follow up of her right hip/sports hernia. She has not yet attended PT, she is booked Friday. Patient reports that she is doing well she continues to have some pain and clicking. no lifting and her symptoms have improved. There is some discomfort at night and a clicking/snapping over the right hip. [facility] Medical History Diverticulitis Anxiety Depression Arthritis Hiatal hernia GERD (gastroesophageal reflux disease) HTN (hypertension) TIA (transient ischemic attack) Surgical History Hx of resection of large bowel History of partial hysterectomy History of esophagogastroduodenoscopy (EGD) Social History (Updated 05/27/24 @ 09:33 by Dolores Ariza CMA) Are you a primary grounds caretaker to a significant other at home: No Do you presently have visiting nurse or other home services: No Patient Tobacco Use Status: Never used Tobacco Current occupational status: employed 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 Exam Vital Signs: BMI result Body Mass Index 25.1 Telehealth Telehealth Telehealth Platform: Telephone Location of provider rendering services: practice address Location of patient: address on file Patient Identification confirmed using: Name, : Yes Telehealth method: voice only Patient verbally consented to treatment: Yes Patient verbally consented to billing insurance company: Yes Patient informed of any privacy concerns related to visit: Yes Minutes spent on Phone/Video with Pt.: 10 Assessment & Plan Assessment & Plan (1) Right hip pain: Code(s): M25.551 - Pain in right hip Category: Medical Plan: Patient has not started physical therapy yet. If she has pain after physical therapy she can return to see me. Coding Level of Care Code Tele Est Pt Level 2 (79674) Diagnoses Right hip pain M25.551
[2024-07-05 10:50] VITALS: BMI 25.1
--- OUTSIDE RECORDS SUMMARY | 2024-07-05 15:36 | XMS_ITS ---
Author Organization [facility] Address [address] [place] [address] Care Team Providers Care Linker Up Name Role Phone Danny (RETIRED) Benny DE GUZMAN Primary Care Provid er Unavailable Benny Sandoval Unavailable [phone] ALLERGIES No Known Allergies REASON FOR VISIT Patient presents today for a COLON SCREENING MEDICATIONS Medication SIG (Take, Route, Frequency, Duration) Notes Start Date End Date Status Omeprazole 20 MG 1 capsule 30 minutes before morning meal Orally Once a day for 30 day(s) OTC Active Nabumetone 750 MG Oral for 30 Active buPROPion HCl ER (XL) 300 MG TAKE 1 TABL ET BY MOUTH EVERY DAY IN THE MORNING Oral for 90 Active hydroCHLOROthiazide 50 MG Oral for 90 Active Synthroid 175 MCG Oral for 80 Active Aspir-Low 81 MG 1 tablet Orally Once a day for 30 day(s) Active SOCIAL HISTORY Tobacco Use: Social History Observation Description Date Details (start date - stop date) Never Smoker NA - NA Sex Assigned At : Social History Observation Description Sex Assigned At Unknown Tobacco Use/Smoking Question Answer Notes Patient is a nonsmoker Alcohol Screen Question Answer Notes Did you have a drink contain ing alcohol in the past year? Yes How often did you have a dri nk containing alcohol in the past year? Monthly or less (1 point) How many drinks did you have on a typical day when you were drinking in the past year? 1 or 2 drinks (0 point) How often did you have 6 or more drinks on one occasion in the past year? Never (0 point) Points 1 Interpretation Negative PROBLEMS Problem Type ICD Code Onset Dates Problem Status W/U Status Risk SNOMED Code Notes Problem Chronic GERD (K21.9) Active confirmed Gastroesophagea l reflux disease (850664939) Problem Encounter for screening for malignant neoplasm of colon (Z12.11) Active confirmed Screening for malignant neoplasm of colon (138790193) VITAL SIGNS BMI 28.43 kg/m2 12/18/2023 Blood pressure systolic 00 mm Hg 12/18/19 24 Blood pressure diastolic 00 mm Hg 024 Height 5 ft 8 in in 12/18/2023 Weight 187 lbs 12/18/2023 Encounters Encounter Location Date Provider Diagnosis [facility] [address] [place] [address] 12/18/2023 Benny Sandoval Chronic GERD K21.9 and Encounter for screening for malignant neoplasm of colon Z12.11 ASSESSMENTS Encounter Date Diagnosis Assessment Notes Treatment Notes Treatment Clinical Notes 12/18/2023 Chronic GERD (ICD-10 - K21.9) Stop Nabumetone for 1 week before the procedures Do not take aspirin for 3 days before the procedures Do not use the Hydrochlorothiazide the day before nor on the day of the procedures 12/18/2023 Encounter for screening for malignant neoplasm of colon (ICD-10 - Z12.11) PLAN OF TREATMENT Treatment Notes Assessment Notes Chronic GERD Stop Nabumetone for 1 week before the procedures Do not take aspirin for 3 days before the procedures Do not use the Hydrochlorothiazide the day before nor on the day of the procedures Future Test Test Name Order Date UPPER GI ENDOSCOPY 12/18/2023 COLONOSCOPY 12/18/2023 Next Appt Details Follow Up: prn, Reason: Progress Notes * Examination Category Sub-Category Detail Notes General Examination GENERAL APPEARANCE: pleasant , well nourished, well developed, in no acute distress HEAD: EYES: sclera non-icteric EARS: NOSE: THROAT: NECK/THYROID: no cervical lymphade nopathy, neck supple HEART: S1, S2 normal CHEST: LUNGS: clear to auscultatio n bilaterally ABDOMEN: normal bowel sounds, no guarding or rigidity, no guarding or rigidity, no masses palpable, soft, nontender, nondistended NEUROLOGIC: alert and oriented SKIN: nonjaundiced, no spi stan angiomata EXTREMITIES: no edema PERIPHERAL PULSES: BACK: BREASTS: MUSCULOSKELETAL: MALE GENITOURINARY: LYMPH NODES: RECTAL EXAM: FEMALE GENITOURINARY: ORAL CAVITY: mucosa moist
--- OUTSIDE RECORDS SUMMARY | 2024-07-05 15:36 | XMS_ITS ---
Author Organization Benny Delgado DO, [facility] Address [address] [place], [place] [id number] Care Team Providers Care Machinist Class B Name Role Phone Benny Delgado Primary Care Provider REASON FOR VISIT Message MEDICATIONS Medication SIG (Take, Route, Frequency, Duration) Notes Start Date End Date Status Synthroid 175 MCG 1 tablet in the morn ing on an empty stomach, 2 tablets on friday Orally Once a day for 90 days No Substitution; Brand Name Only Active Encounters Encounter Location Date Provider Diagnosis Benny Delgado DO, [address] [phone] 08/04/2023 Benny Delgado PLAN OF TREATMENT Medication Medication Name Sig Start Date Stop Date Notes Synthroid 175 MCG 1 tablet in the morn ing on an empty stomach, 2 tablets on friday Orally Once a day for 90 days No Substitution; Brand Name Only
--- OUTSIDE RECORDS SUMMARY | 2024-07-05 15:36 | XMS_ITS ---
Author Organization Benny Delgado DO, FACP Address [address] [facility] [place] [id number] Care Team Providers Care Sustainability Executive Director Name Role Phone Benny Delgado Primary Care Provider ALLERGIES No Known Allergies REASON FOR REFERRAL Reason Right hip/groin pain Diagnosis 1 Right hip pain (M25. 551) Referral Organization Benny Martinez, [facility] Referring Provider First Name Benny Referring Provider Last Name Danny Referring Provider Speciality Internal M edicine Referred Provider Wenceslao Huber Referred Provider Specialty Orthopedic S urgery General Notes [place] 4 02:50:24 PM EST > Referral faxed prior to scheduling Referral Priority Routine Referral Appointment Date 05/27/2024 REASON FOR VISIT hip and groin pain MEDICATIONS Medication SIG (Take, Route, Frequency, Duration) Notes Start Date End Date Status buPROPion HCl ER (XL) 300 MG TAKE 1 TABLET BY MOUTH EVERY DAY IN THE MORNING Active Synthroid 175 MCG 1 tablet in the morning on an empty stomach, 2 tablets on friday Orally Once a day No Substitution; Brand Name Only Active Aspirin EC 81 MG 1 tablet Orally Once a day 04/03/2012 Active hydroCHLOROthiazide 50 MG 1 tablet in morning Orally Once a day Active Omeprazole 20 MG 1 capsule 30 minutes before morning meal Orally Once a day Active Nabumetone 750 MG 1 tablet with food as needed Orally Twice a day Active Glucosamine-Chondroitin 500-400 MG 1 capsule with a meal Orally Once a day Active Multivitamins 1 tablet Orally Once a day Active Calcium 600 + D 600-200 MG-UNIT 1 tablet Orally Once a day Active Probiotic 1 capsule Orally Once a day Active SOCIAL HISTORY Tobacco Use: Social History Observation Description Date Details (start date - stop date) Never Smoker NA - NA Sex Assigned At : Social History Observation Description Sex Assigned At Unknown Tobacco Use/Smoking Question Answer Notes Patient is a nonsmoker Additional Findings: Tobacco Non-User Cu rrent non-smoker, currently using no form of tobacco Alcohol Screen Question Answer Notes Did you [...] Never (0 point) Points 1 Interpretation Negative VITAL SIGNS BMI 28.95 kg/m2 04/27/2024 Blood pressure systolic 130 mm Hg 04/27/20 24 Blood pressure diastolic 80 mm Hg 024 Height 67.75 in 04/27/2024 Weight 189 lbs 04/27/2024 Encounters Encounter Location Date Provider Diagnosis Benny Delgado DO, [address] [id number] 04/27/2024 Benny Delgado Right hip pain M25.5 51 ; Acquired hypothyroidism E03.9 ; Essential hypertension I10 and Primary osteoarthritis involving multiple joints M15.9 ASSESSMENTS Encounter Date Diagnosis Assessment Notes Treatment Notes Treatment Clinical Notes 04/27/2024 Right hip pain (ICD-10 - M25.551) 04/27/2024 Acquired hypothyroidism (ICD-10 - E03.9) 04/27/2024 Essential hypertension (ICD-10 - I10) 04/27/2024 Primary osteoarthritis involving multiple joints (ICD-10 - M15.9) PLAN OF TREATMENT Medication Medication Name Sig Start Date Stop Date Notes buPROPion HCl ER (XL) 300 MG TAKE 1 TABL ET BY MOUTH EVERY DAY IN THE MORNING Synthroid 175 MCG 1 tablet in the morning on an empty stomach, 2 tablets on friday Orally Once a day No Substitution; Brand Name Only Aspirin EC 81 MG 1 tablet Orally Once a day 04/03/2012 hydroCHLOROthiazide 50 MG 1 tablet in morning Orally Once a day Omeprazole 20 MG 1 capsule 30 minutes before morning meal Orally Once a day Nabumetone 750 MG 1 tablet with food as needed Orally Twice a day Glucosamine-Chondroitin 500-400 MG 1 capsule with a meal Orally Once a day Multivitamins 1 tablet Orally Once a day Calcium 600 + D 600-200 MG-UNIT 1 tablet Orally Once a day Probiotic 1 capsule Orally Once a day Referrals Referral Date Details 05/27/2024 05/27/2024, Right hi p/groin pain, Wenceslao Huber Next Appt Details Follow Up: 3 Months, Reason: follow up visit Progress Notes * Examination Category Sub-Category Detail Notes General Examination GENERAL APPEARANCE: in no ac sitka distress, well developed, well nourished HEAD: normocephalic, atrau matic HEART: no murmurs, regular rate and rhythm, S1, S2 normal LUNGS: clear to auscultatio n bilaterally ABDOMEN: normal, bowel sounds present, soft, nontender, nondistended SKIN: warm and dry EXTREMITIES: no edema MUSCULOSKELETAL: hips with FROM, righ t hip tender on extreme of IR and ER PSYCH: alert, oriented, cog nitive function intact Consultation Request Notes Referral Date Referring Provider Referred Provider Not dimitry 04/27/2024 Benny Delgado Noah Right hip/g roin pain
--- OUTSIDE RECORDS SUMMARY | 2024-07-05 15:36 | XMS_ITS ---
Author Organization Benny Delgado DO, [facility] Address [address] [place], [place] [id number] Care Team Providers Care Life Enrichment Director Name Role Phone Benny Delgado Primary Care Provider [phone] REASON FOR VISIT Refills MEDICATIONS Medication SIG (Take, Route, Frequency, Duration) Notes Start Date End Date Status hydroCHLOROthiazide 50 MG 1 tablet in th e morning Orally Once a day for 90 days Active Nabumetone 750 MG 1 tablet with food a s needed Orally Twice a day for 30 days Active Encounters Encounter Location Date Provider Diagnosis Benny Delgado DO, FACP [address] [place] [phone] 11/04/2023 Benny Delgado PLAN OF TREATMENT Medication Medication Name Sig Start Date Stop Date Notes hydroCHLOROthiazide 50 MG 1 tablet in th e morning Orally Once a day for 90 days Nabumetone 750 MG 1 tablet with food a s needed Orally Twice a day for 30 days
--- OUTSIDE RECORDS SUMMARY | 2024-07-05 15:37 | XMS_ITS | Patient Health Record ---
Author Organization [facility] Address [address] [facility] [address] [place] [id number] Care Team Providers Care Payroll Services Analyst Name Role Phone Danny (RETIRED) Benny DE GUZMAN Primary Care Provid er Unavailable Benny Sandoval Unavailable [phone] ALLERGIES No Known Allergies RESULTS Component Value Reference Range Notes Pathology (Not yet reviewed by provider) Interpretation: Performing Lab:[facility], [address] [place] [id number] Notes/Report: REASON FOR REFERRAL Reason DO NOT USE THIS REFE RRAL Referring Provider First Name Benny Referring Provider Last Name Danny (RE TIRED) Referring Provider Speciality Internal M edicine Referred Organization [facility] Referred Provider Benny Sandoval Referred Address [address] [place] [address],[address],[address],[place] Referred Provider Specialty Gastroentero logy Referral Priority Routine Referring Provider First Name Benny Referring Provider Last Name Danny (RE TIRED) Referring Provider Speciality Internal edicine Referred Organization [facility] Referred Provider Benny Sandoval Referred Address [address] [place] [address],[address],[address],[place] Referred Provider Specialty Gastroentero logy Referral Priority Routine MEDICATIONS Medication SIG (Take, Route, Frequency, Duration) Notes Start Date End Date Status Omeprazole 20 MG 1 capsule 30 minutes before morning meal Orally Once a day for 30 day(s) OTC Active Nabumetone 750 MG Oral for 30 Active Aspir-Low 81 MG 1 tablet Orally Once a day for 30 day(s) Active buPROPion HCl ER (XL) 300 MG TAKE 1 TABL ET BY MOUTH EVERY DAY IN THE MORNING Oral for 90 Active hydroCHLOROthiazide 50 MG Oral for 90 Active Synthroid 175 MCG Oral for 80 Active SOCIAL HISTORY Tobacco Use: Social History [...] (K21.9) Active confirmed Gastroesophagea l reflux disease (208233975) Problem Encounter for screening for malignant neoplasm of colon (Z12.11) Active confirmed Screening for malignant neoplasm of colon (301750212) Problem Gastroesophageal reflux disease (K21.9) Active confirmed Gastroesophagea l reflux disease (292793799) VITAL SIGNS Blood pressure diastolic 00 mm Hg 12/18/2023 Height 5 ft 8 in in 12/18/2023 Blood pressure systolic 00 mm Hg 12/18/2023 Weight 187 lbs 12/18/2023 BMI 28.43 kg/m2 12/18/2023 Encounters Encounter Location Date Provider Diagnosis [facility] [facility] [address] [place] [phone] 03/05/2024 Benny Sandoval [facility] [place] [facility] [address] [place] [phone] 04/05/2024 Benny Sandoval Colon cancer screeni ng Z12.11 ; Other hemorrhoids K64.8 ; Gastroesophageal reflux disease K21.9 ; Hiatal hernia K44.9 and Other specified disease of esophagus K22.89 [facility] [address] [place] [address] 12/18/2023 Benny Sandoval Chronic GERD K21.9 a nd Encounter for screening for malignant neoplasm of colon Z12.11 ASSESSMENTS Encounter Date Diagnosis Assessment Notes Treatment Notes Treatment Clinical Notes 04/05/2024 Colon cancer screening (ICD-10 - Z12.11) 04/05/2024 Other hemorrhoids (ICD-10 - K64.8) 12/18/2023 Encounter for screening for malignant neoplasm of colon (ICD-10 - Z12.11) 12/18/2023 Chronic GERD (ICD-10 - K21.9) Stop Nabumetone for 1 week before the procedures Do not take aspirin for 3 days before the procedures Do not use the Hydrochlorothiazide the day before nor on the day of the procedures 04/05/2024 Gastroesophageal reflux disease (ICD-10 - K21.9) 04/05/2024 Hiatal hernia (ICD-1 0 - K44.9) 04/05/2024 Other specified disease of esophagus (ICD-10 - K22.89) PLAN OF TREATMENT Pending Test Test Name Order Date Pathology 04/05/2024 Future Test Test Name Order Date UPPER GI ENDOSCOPY 12/18/2023 COLONOSCOPY 12/18/2023 Insurance Providers Payer Name Payer Address Payer Phone Subscriber Number Group Number Insured Name Patient Relationship to Insured Coverage Start Date Coverage End Date [employer] [address] [place] [address] [id number] [id number] Self - patient is the insured MEDICAL (GENERAL) HISTORY Medical History History ICD Code TIA'S Hypertension GERD--EGD 2004 with me--she reports that I told her of a hiatal hernia Arthritis Depression/Anxiety Denies VT,DM,CVA,Lung disease,renal dise ase Surgical History Surgery Date(Month/Year) Partial hysterectomy Sigmoid resection for diverticulitis in 2014
--- OUTSIDE RECORDS SUMMARY | 2024-07-05 15:37 | XMS_ITS ---
Author Organization [facility] Address [address] [place] [address] Care Team Providers Care Jet Blade Polisher Name Role Phone Danny (RETIRED) Benny DE GUZMAN Primary Care Provid er Unavailable Benny Sandoval Unavailable [phone] REASON FOR VISIT gerd,screening Encounters Encounter Location Date Provider Diagnosis [facility] [place] [address], [place] [phone] 03/05/2024 Benny Sandoval PLAN OF TREATMENT No Information
--- OUTSIDE RECORDS SUMMARY | 2024-07-05 15:37 | XMS_ITS ---
Author Organization [facility] Address [address] [place] [address] Care Team Providers Care Pharmacist Hospital Name Role Phone Danny (RETIRED) Benny DE GUZMAN Primary Care Provid er Unavailable Benny Sandoval Unavailable [phone] REASON FOR VISIT gerd,screening PROBLEMS Problem Type ICD Code Onset Dates Problem Status W/U Status Risk SNOMED Code Notes Problem Gastroesophageal reflux disease (K21.9) Active confirmed Gastroesophagea l reflux disease (371215231) Encounters Encounter Location Date Provider Diagnosis [facility] [place] [facility] [address] [place], [place] [phone] 04/05/2024 Benny Sandoval Colon cancer screeni ng Z12.11 ; Other hemorrhoids K64.8 ; Gastroesophageal reflux disease K21.9 ; Hiatal hernia K44.9 and Other specified disease of esophagus K22.89 ASSESSMENTS Encounter Date Diagnosis Assessment Notes Treatment Notes Treatment Clinical Notes 04/05/2024 Colon cancer screeni ng (ICD-10 - Z12.11) 04/05/2024 Other hemorrhoids (ICD-10 - K64.8) 04/05/2024 Gastroesophageal ref lux disease (ICD-10 - K21.9) 04/05/2024 Hiatal hernia (ICD-1 0 - K44.9) 04/05/2024 Other specified dise ase of esophagus (ICD-10 - K22.89) PLAN OF TREATMENT No Information
== END 2024-07-05 11:10 | disposition home or self-care (01) ==
LOC: HO.HOS 10:49
PROVIDERS: PCP Internal Medicine; Visit Provider Orthopaedic Surgery
DX: M25.551 Pain in right hip (principal)
CPT/HCPCS: 99212

== ENCOUNTER 2024-07-29 15:00 | Outpatient (RCR) | payer BC, SELFPAY ==
--- NOTE | 2024-07-19 12:01 | MHC.PT.EP ---
[facility] [place] Office [place] [facility] [place] [facility] [address] John Garrison [address] [phone] F: [phone] F: [phone] F: [phone] F: [phone] Physical Therapy Plan of Care Date of Evaluation: 07/19/24 Date of Surgery: n/a Diagnosis: sports hernia Assessment: Patient is a 49 year old female presenting to PT with complaints of pain in her B hips R>L. Pt reports onset of pain began January 2024 due to insidious onset. She presents today with impairments in pain, soft tissue limitations, hip strength, core strength. 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 Pt expresses penitentiary goal of reducing pain, and is motivated to work towards this in PT. Clinical presentation today is most consistent with signs and sx associated with referral for sports hernia and pt will benefit from skilled PT 2 week x 4 weeks to address the following problems and impairments noted upon evaluation: pain, soft tissue limitations, hip strength, core strength. These problems limit the patient with the following functional activities: ambulating, lifting, rolling. The prescribed treatment plan of care is medically necessary. Co-morbidities of anxiety were identified and taken into considerations of plan of care. Pt was educated on HEP, role of PT, prognosis, POC. Frequency and Duration: The patient will be seen 2 x week x 4 weeks Short Term Goals: Pt will demonstrate improved hip MMT strength by 1/3 grade in 2 weeks. Pt will demonstrate less tenderness to palpation of hip flexor in 2 weeks. Music Video Producer Goals: Pt will demonstrate improved LEFI score by 9 points in 4 weeks for improved functional mobility. Pt will demonstrate ability to ambulate with min to no pain in 4 weeks for return to PLOF. Pt will demonstrate ability to lift her leg and roll in bed with min to no pain in 4 weeks for return to PLOF. Treatment Plan: Modalities to reduce pain, spasms and effusion. Manual therapy to restore motion and function. Therapeutic exercise to improve strength and flexibility. Neuromuscular re-education for posture and balance. Therapeutic activities to return to functional activities of daily living. Electronically signed by: Aleksandra Angulo, PT, DPT, ATC Please sign and return to therapist. Thank you for your referral.
--- NOTE | 2024-09-14 15:00 | MHC.PT.DC ---
[facility] [place] Office [place] Office [address] [phone] F: [phone] F: [phone] F: [phone] F: [phone] Physical Therapy Discharge Report Diagnosis: sports hernia Date of Surgery: n/a Date of Evaluation: 07/19/24 Date of Discharge: 09/14/24 Treatments to Date: 2 Cancellations to Date: 0 No Shows to Date: 0 Discharge Status: Discharge Summary: Pt had been placed on 30 day hold at last visit. She has not called to be scheduled since so therefore to be d/c as planned. Electronically signed by: Aleksandra Angulo, PT, DPT, ATC Please sign and return to therapist. Thank you for your referral.
== END 2024-09-14 15:00 | disposition home or self-care (01) ==
LOC: HO.PTCHIC 15:00
PROVIDERS: PCP Internal Medicine; Visit Provider Orthopaedic Surgery
DX: S39.81XD Other specified injuries of abdomen, subsequent encounter (principal)
CPT/HCPCS: 97110; 97140; 97161

== ENCOUNTER 2024-08-04 09:17 | Outpatient (AMB) | payer BC, SELFPAY ==
[2024-08-04 09:09] VITALS: BP 126/82; PULSE 86; RESP 17; TEMP 36.1; BMI 30.3
--- NOTE | 2024-08-04 09:09 | A.OFFPC_ITS ---
Vital Signs 08/04/24 09:09 Height 5 ft 6 in Weight 188 lb BMI 30.3 BP 126/82 Blood Pressure Location Rt brachial Position Sitting Respiration 17 Pulse 86 Temp 97 F Intake Visit Reasons: physical Allergies No Known Allergies [No Known Allergies*] Allergy (Verified 08/04/24 10:18) Medication List - Last Reconciled 08/04/24 by Marlen Shah PA-C aspirin 81 mg PO DAILY bupropion HCl XL 300 mg PO DAILY 90 days calcium carbonate-vitamin D3 600 mg-5 mcg (200 unit) (Calcium 600 + D(3)) 1 tab PO DAILY cyclobenzaprine 10 mg PO TID PRN glucosamine-chondroitin 500-400 mg 1 cap PO DAILY hydrochlorothiazide 50 mg PO DAILY lactobacillus combination no.4 (Probiotic) 3,000 mmu cells PO DAILY levothyroxine (Synthroid) 175 mcg PO DAILY multivitamin 1 tab PO DAILY nabumetone 750 mg PO BID omeprazole 20 mg PO DAILY PFSH Medical History (Updated 08/04/24 @ 10:26 by Marlen Shah PA-C) Obesity (BMI 30.0-34.9) Annual physical exam Pelvic pain Hyperlipidemia LDL goal <100 Mild hypercholesterolemia History of mammogram (~09/20/23) History of thyroid nodule Chronic lymphocytic thyroiditis Chronic neck pain Left-sided low back pain without sciatica Hypothyroidism Diverticulitis Anxiety Depression Arthritis Hiatal hernia GERD (gastroesophageal reflux disease) HTN (hypertension) TIA (transient ischemic attack) Surgical History History of colonoscopy (~04/05/24) Hx of resection of large bowel History of partial hysterectomy History of esophagogastroduodenoscopy (EGD) Social History Are you a primary health care administrator to a significant other at home: No Do you presently have visiting nurse or other home services: No Patient Tobacco Use Status: Never used Tobacco Current occupational status: employed 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 exam (Primary Care) Vital Signs: Last Vital Signs Temp 97 F 08/04/24 09:09 Pulse 86 08/04/24 09:09 Resp 97 H 08/04/24 09:09 BP 126/82 08/04/24 09:09 BP Goal 130/80 at goal BMI result Body Mass Index 30.3 BMI Assessment/Plan discussion: High (Will also refer to wind turbine sheet metal worker/dietitian) BMI High, discussed plan: lifestyle, weight reduction, dietary, physical activity and alcohol moderation Tobacco/Smoking Status: Tobacco use Status Patient Tobacco Use Status Never used Tobacco 08/04/24 09:15 Coding Level of Care Code New Pt Level 4 (69244) Complex EM visit Add On G2211 Diagnoses Annual physical exam Z00.00 Pelvic pain R10.2 Hypothyroidism E03.9 History of thyroid nodule Z86.39 Mild hypercholesterolemia E78.00 Hyperlipidemia LDL goal <100 E78.5 Chronic lymphocytic thyroiditis E06.3 Chronic neck pain M54.2; G89.29 Left-sided low back pain without sciatica M54.50 HTN (hypertension) I10 GERD (gastroesophageal reflux disease) K21.9 Depression F32.A Anxiety F41.9 Arthritis M19.90 Obesity (BMI 30.0-34.9) E66.811 Assessment & Plan Assessment & Plan (1) Annual physical exam: Code(s): Z00.00 - Encounter for general adult medical examination without abnormal findings Category: Medical Plan: See below for plan. (2) Pelvic pain: Code(s): R10.2 - Pelvic and perineal pain Category: Medical Plan: Patient reported chronic pelvic pain despite having a hysterectomy and being in physical therapy for 2 sessions along with being on NSAIDs. Will prescribed muscle relaxants. Will refer to industrial therapist for further evaluation management. Condition is chronic and stable continue to monitor. (3) Hypothyroidism: Code(s): E03.9 - Hypothyroidism, unspecified Category: Medical Plan: Patient currently on levothyroxine own 175 mcg daily. Condition is chronic and stable continue to monitor. (4) History of thyroid nodule: Comment: s/p thyroid ultrasound/FNA on 04/01/2019 at [facility] Code(s): Z86.39 - Personal history of other endocrine, nutritional and metabolic disease Category: Medical Plan: Patient had a fine-needle biopsy at [facility] in 2019. Has not followed up with endocrinology since then. Will refer back to endocrinology for further evaluation management. Condition is chronic and stable continue to monitor. (5) Mild hypercholesterolemia: Code(s): E78.00 - Pure hypercholesterolemia, unspecified Category: Medical Plan: Patient would like to improve her diet and exercise regimen before being started on a statin. LDL on 05/14/2024 was 140. Total cholesterol 207. Goal for total cholesterol is less than 200. Goal for LDL is less than 100. Will reassess at next visit in 6 months at that time if cholesterol levels continue to be elevated patient will be started on a statin or other lower cholesterol medications. Patient agreeable with this. Condition is chronic and stable continue to monitor. (6) Hyperlipidemia LDL goal <100: Code(s): E78.5 - Hyperlipidemia, unspecified Category: Medical Plan: Patient would like to improve her diet and exercise regimen before being started on a statin. LDL on 05/14/2024 was 140. Total cholesterol 207. Goal for LDL is less than 100. Will reassess at next visit in 6 months at that time if cholesterol levels continue to be elevated patient will be started on a statin or other lower cholesterol medications. Patient agreeable with this. Condition is chronic and stable continue to monitor. (7) Chronic lymphocytic thyroiditis: Code(s): E06.3 - Autoimmune thyroiditis Category: Medical Plan: Patient currently on levothyroxine 175 mcg daily. Will refer to equipment mechanic. Condition is chronic and stable continue to monitor. (8) Chronic neck pain: Code(s): M54.2 - Cervicalgia; G89.29 - Other chronic pain Category: Medical Plan: Patient currently on aspirin 81 mg daily, nabumetone 750 mg p.o. b.i.d.. Patient currently in physical therapy. Will prescribe cyclobenzaprine cream 10 mg t.i.d. p.r.n., condition is chronic and stable continue to monitor. (9) Left-sided low back pain without sciatica: Code(s): M54.50 - Low back pain, unspecified Category: Medical Plan: Patient currently on aspirin 81 mg daily, nabumetone 750 mg p.o. b.i.d.. Patient currently in physical therapy. Will prescribe cyclobenzaprine cream 10 mg t.i.d. p.r.n., condition is chronic and stable continue to monitor. (10) HTN (hypertension): Code(s): I10 - Essential (primary) hypertension Category: Medical Plan: Patient currently on aspirin 81 mg daily, hydrochlorothiazide 50 mg daily. Blood pressure goal 130/80. At goal today. Condition is chronic and stable continue to monitor. (11) GERD (gastroesophageal reflux disease): Code(s): K21.9 - Gastro-esophageal reflux disease without esophagitis Category: Medical Plan: Patient currently on omeprazole 20 mg daily. Condition is chronic and stable continue to monitor. (12) Depression: Code(s): F32.A - Depression, unspecified Category: Medical Plan: Patient currently on bupropion 300 mg daily. Condition is chronic and stable continue to monitor. (13) Anxiety: Code(s): F41.9 - Anxiety disorder, unspecified Category: Medical Plan: Patient currently on bupropion 300 mg daily. Condition is chronic and stable continue to monitor. (14) Arthritis: Code(s): M19.90 - Unspecified osteoarthritis, unspecified site Category: Medical Plan: Patient currently on aspirin 81 mg daily, nabumetone 750 mg p.o. b.i.d.. Patient currently in physical therapy. Will prescribe cyclobenzaprine cream 10 mg t.i.d. p.r.n., condition is chronic and stable continue to monitor. (15) Obesity (BMI 30.0-34.9): Code(s): E66.811 - Obesity, class 1 Category: Medical Plan: Patient to improve her diet and exercise regimen. Condition is chronic and stable continue to monitor. Plan Plan The patient will maintain current management strategies for her illnesses, inclusive of medications for hypertension, thyroid disease, and GERD. Referral to endocrinology will strengthen evaluation of metabolic impacts on weight and thyroid management. Continued emphasis on natural weight loss methods is preferred, with a focus on dietary modifications before considering pharmacological interventions. A IS/IT PROJECT MANAGER referral will be secured for overdue Pap screening, and annual mammograms shall progress as planned. Muscle spasms noted on thorax will be addressed with muscle relaxants. Close follow-up is advised to evaluate the patient's ongoing musculoskeletal concerns and ensure progress. Orders: Orders Complete Blood Count Auto Diff Today Z00.00 - Encounter for general adult medical examination without abnormal findings Comprehensive [place]. Panel Fast Today Z00.00 - Encounter for general adult medical examination without abnormal findings C Reactive Protein Today Z00.00 - Encounter for general adult medical examination without abnormal findings Liver Panel Today Z00.00 - Encounter for general adult medical examination without abnormal findings Vitamin B1 Today Z00.00 - Encounter for general adult medical examination without abnormal findings Vitamin D 25-OH Total Today Z00.00 - Encounter for general adult medical examination without abnormal findings PTH Intact Intraoperative Today Z00.00 - Encounter for general adult medical examination without abnormal findings Phosphorus Today Z00.00 - Encounter for general adult medical examination without abnormal findings Lipid Panel Today Z00.00 - Encounter for general adult medical examination without abnormal findings Hemoglobin A1c Today Z00.00 - Encounter for general adult medical examination without abnormal findings TSH reflex Free T4 Today Z00.00 - Encounter for general adult medical examination without abnormal findings Vitamin B12 and Folate Today Z00.00 - Encounter for general adult medical examination without abnormal findings Magnesium Today Z00.00 - Encounter for general adult medical examination without abnormal findings Referrals Endocrinology Referral E03.9 - Hypothyroidism, unspecified, E06.3 - Autoimmune thyroiditis, Z86.39 - Personal history of other endocrine, nutritional and metabolic disease SELF PAY REPRESENTATIVE Referral R10.2 - Pelvic and perineal pain Cod Clerk Nutrition Referral E66.9 - Obesity, unspecified Medications: New levothyroxine (Synthroid) 175 mcg PO DAILY 90 tabs 1RF cyclobenzaprine 10 mg PO TID PRN 90 tabs 1RF muscle spasm Patient Instructions: Patient Instructions - Continue taking medications as prescribed including hydrochlorothiazide, levothyroxine, omeprazole, and NSAIDs. - Follow dietary recommendations to manage glucose and cholesterol levels; focus on low-fat, high-fiber diet. - Schedule recommended IS/IT PROJECT MANAGER visit for Pap smear. - Maintain annual mammogram screenings. - Engage in physical therapy exercises for pelvic discomfort and neck stiffness relief. - Explore natural weight loss strategies focusing on diet and physical activity; consider nutritional consultation. - Follow-up in 6 months or sooner if condition changes or new issues arise. - Schedule an appointment for fasting blood work before next visit for A1c and lipid profile. - Return for regular monitoring and reassessment as needed. Scribe Plan - Not visible on output: History of Present Illness The patient is a 49-year-old female presenting for an annual physical examination. She has a notable history of essential hypertension, which is controlled with hydrochlorothiazide 50 mg daily. Her hypothyroidism, accompanied by Cheri's thyroiditis, is managed with levothyroxine 175 mcg daily. She has not seen an equipment mechanic in recent years since her thyroid nodule biopsy in 2017 was normal. GERD is managed with omeprazole 20 mg daily. Her medical history also includes diverticulitis and management of chronic pain requiring NSAID use. Further, the patient experiences anxiety treated with Wellbutrin. She did not manage to undergo a Pap smear due to appointment cancellations during the pandemic. Last year's mammogram, showing fibrocystic changes, dictates annual follow-up. A colonoscopy confirmed a routine follow-up every ten years. Blo odwork indicates elevated glucose and cholesterol, with dietary management in process. However, she has difficulty with weight loss despite attempts to adjust her diet, attributing these issues possibly to her thyroid condition. She is exploring natural weight loss methods and considering nutritional guidance due to ongoing inflammation and unpleasant night-time snapping in the pelvic area amidst physical therapy. Social History - Employment: Works with her in a [employer] company. - Family Status: , with children, involved family. - Nutritional Intake: Regularly consumes a diet of a protein and vegetable-based diet, typically eats lunch and dinner, avoids breakfast due to a busy morning schedule, limits snacking. - Exercise: Limited due to inflammation-related discomfort; planning to increase activity with warmer weather. - Weight Management: Attempts dietary changes aligned with 's weight loss, expresses interest in non-medication methods for weight management. - Functional Status: Reports challenges with evening stiffness and discomfort, currently on physical therapy to address pelvic discomfort. Review of Systems - Musculoskeletal: Reports pelvic snapping and neck discomfort. - Neurological: Denies headaches or tremors. Physical Exam Appearance: Alert. Oriented X3. No acute distress. Head: Normal external exam. Normocephalic. Atraumatic. Eyes: Pupils are equal, round, and reactive to light. Extraocular movements intact. Conjunctiva and sclera normal. Eyelids normal. Ears: External auditory canal normal. Tympanic membranes normal. Throat: Pharynx normal. Uvula midline. Moist mucous membranes. Neck: Normal inspection. Neck supple. Full range of motion. No adenopathy. Thyroid Normal. No meningeal signs. No neck mass noted. Cardiovascular: Normal heart rate and rhythm. Heart sound normal. No murmurs noted. Pulses normal throughout. Respiratory: No respiratory distress. Painless inspiration. Breath sounds normal. No wheezes/rales/rhonchi noted. Chest nontender. No accessory muscle usage noted or decreased air movement noted. Abdomen: Soft and nontender. Bowel sounds normal in all 4 quadrants. No distention noted. No organomegaly noted. No visible injury noted. Back: No costovertebral angle tenderness. Full range of motion noted. Skin: Skin warm and dry. Normal skin color. Normal skin turgor. No rashes/lesions/lacerations noted. Extremities: No lower extremity edema. Extremities exhibit normal range of motion. Extremities nontender. Neuro: Oriented X 3. No motor deficit. No sensory deficit. Reflexes normal. Results - Labs: Blood glucose elevated at 104 mg/dL, total cholesterol elevated at 207 mg/dL, LDL cholesterol elevated at 140 mg/dL. Liver enzymes mild elevation with AST at 32 and ALT at 38. Patient was informed and verbally consented to the use of an ambient scribe for clinic note documentation during this visit. Discussion Notes During our discussion, the patient and I reviewed her current medication regimen and ongoing management strategies for her chronic conditions, including thyroid management and hypertension. We discussed the importance of regular follow-ups with endocrinology to assess thyroid function particularly in relation to metabolic processes affecting weight. I emphasized the management of cholesterol through lifestyle changes first and stressed the importance of upcoming dietary adjustments and physical therapy interventions pertinent to her musculoskeletal concerns. The absence of recent Pap smears due to the pandemic was acknowledged, with arrangements for referrals made for gynecological consultation and continued mammogram surveillance. Additionally, when addressing weight reduction, we discussed, in detail, the potential benefits versus drawbacks of pharmacological intervention versus a natural approach, with patient inclination towards the latter. Overall, expectations for follow-up and further testing were established with a plan for continuous monitoring.
--- OUTSIDE RECORDS SUMMARY | 2024-08-04 10:23 | XMS_ITS ---
Author Organization [facility] Address [address] [place] [address] Care Team Providers Care Mobile Equipment Mechanic Name Role Phone Danny (RETIRED) Benny DE GUZMAN Primary Care Provid er Unavailable Benny Sandoval Unavailable [phone] ALLERGIES No Known Allergies REASON FOR VISIT [...] (K21.9) Active confirmed Gastroesophagea l reflux disease (201771719) Problem Encounter for screening for malignant neoplasm of colon (Z12.11) Active confirmed Screening for malignant neoplasm of colon (440159909) VITAL SIGNS Blood pressure systolic 00 mm Hg 12/18/19 24 Blood pressure diastolic 00 mm Hg 024 Height 5 ft 8 in in 12/18/2023 Weight 187 lbs 12/18/2023 BMI 28.43 kg/m2 12/18/2023 Encounters Encounter Location Date Provider Diagnosis [facility] [address] [place] [address] 12/18/2023 Benny Sandoval Chronic GERD K21.9 and [...]
--- OUTSIDE RECORDS SUMMARY | 2024-08-04 10:24 | XMS_ITS ---
Author Organization [facility] Address [address] [place] [address] Care Team Providers Care Body Shop Estimator Name Role Phone Danny (RETIRED) Benny DE GUZMAN Primary Care Provid er Unavailable Benny Sandoval Unavailable [phone] REASON FOR VISIT gerd,screening PROBLEMS Problem Type ICD Code Onset Dates Problem Status W/U Status Risk SNOMED Code Notes Problem Gastroesophageal reflux disease (K21.9) Active confirmed Gastroesophagea l reflux disease (714418143) Encounters Encounter Location Date Provider Diagnosis [facility] [address] [place], [place] [phone] 04/05/2024 Benny Sandoval Colon cancer screeni ng [...]
--- OUTSIDE RECORDS SUMMARY | 2024-08-04 10:24 | XMS_ITS ---
Author Organization Benny Delgado DO, [facility] Address [address] [place], [place] [id number] Care Team Providers Care [employer] [place] Law Clerk Name Role Phone Benny Delgado Primary Care Provider REASON FOR VISIT Refills MEDICATIONS Medication SIG (Take, Route, Frequency, Duration) Notes Start Date End Date Status hydroCHLOROthiazide 50 MG 1 tablet in th e morning Orally Once a day for 90 days Active Nabumetone 750 MG 1 tablet with food a s needed Orally Twice a day for 30 days Active Encounters Encounter Location Date Provider Diagnosis Benny Delgado DO, FACP [address] [place] [phone] 11/04/2023 Benny Delgado PLAN OF TREATMENT Medication Medication Name Sig Start Date Stop Date Notes hydroCHLOROthiazide 50 MG 1 tablet in th e morning Orally Once a day for 90 days Nabumetone 750 MG 1 tablet with food a s needed Orally Twice a day for 30 days
--- OUTSIDE RECORDS SUMMARY | 2024-08-04 10:24 | XMS_ITS | Patient Health Record ---
Author Organization [facility] Address [address] [facility] [address] [place] [address] Care Team Providers Care Thermostat Machine Tender Name Role Phone Danny (RETIRED) Benny DE GUZMAN Primary Care Provid er Unavailable Benny Sandoval Unavailable [phone] ALLERGIES No Known Allergies RESULTS Component Value Reference Range Notes Pathology (Not yet reviewed by provider) Interpretation: Performing Lab:[facility], [address] [place] [id number] Notes/Report: REASON FOR REFERRAL Reason DO NOT USE THIS REFE RRAL Referring Provider First Name Benny Referring Provider Last Name Danny (RE TIRED) Referring Provider Speciality Internal M edicine Referred Organization [facility] Referred Provider Benny Sandoval Referred Address [address] [place] [address],[address],[address],[place] Referred Provider Specialty Gastroentero logy Referral Priority Routine Referring Provider First Name Benny Referring Provider Last Name Danny (RE TIRED) Referring Provider Speciality Internal edicine Referred Organization [facility] Referred Provider Benny Sandoval Referred Address [address] [place] [address],[address],[address],[place] Referred Provider Specialty Gastroentero logy Referral Priority [...] W/U Status Risk SNOMED Code Notes Problem Encounter for screening for malignant neoplasm of colon (Z12.11) Active confirmed Screening for malignant neoplasm of colon (539193864) Problem Gastroesophageal reflux disease (K21.9) Active confirmed Gastroesophagea l reflux disease (174198750) Problem Chronic GERD (K21.9) Active confirmed Gastroesophagea l reflux disease (046436937) VITAL SIGNS Blood pressure diastolic 00 mm Hg 12/18/2023 Height 5 ft 8 in in 12/18/2023 Blood pressure systolic 00 mm Hg 12/18/2023 Weight 187 lbs 12/18/2023 BMI 28.43 kg/m2 12/18/2023 Encounters Encounter Location Date Provider Diagnosis [facility] [address] [place] [id number] 03/05/2024 Benny Sandoval [facility] [address] [place] [id number] 04/05/2024 Benny Sandoval Colon cancer screeni ng Z12.11 ; Other hemorrhoids K64.8 ; Gastroesophageal reflux disease K21.9 ; Hiatal hernia K44.9 and Other specified disease of esophagus K22.89 [facility] [address] [place] [address] 12/18/2023 Benny Sandoval Chronic GERD K21.9 a [...] Insured Coverage Start Date Coverage End Date [facility] [employer] CLAIMS [address] [place] [address] [id number] [employer] Self - patient is the insured MEDICAL (GENERAL) HISTORY Medical History History ICD Code TIA'S Hypertension GERD--EGD 2004 with me--she reports that I told her of a hiatal hernia Arthritis Depression/Anxiety Denies IN,DM,CVA,Lung disease,renal dise ase Surgical History Surgery Date(Month/Year) Partial hysterectomy Sigmoid resection for diverticulitis in 2014
--- OUTSIDE RECORDS SUMMARY | 2024-08-04 10:24 | XMS_ITS ---
Author Organization Benny Delgado DO, [facility] Address [address] [place], [place] [phone] Care Team Providers Care Financial Recruiter Name Role Phone Benny Delgado Primary Care Provider REASON FOR VISIT physical Encounters Encounter Location Date Provider Diagnosis Benny Delgado DO, [address] [id number] 08/04/2024 Benny Delgado PLAN OF TREATMENT No Information
--- OUTSIDE RECORDS SUMMARY | 2024-08-04 10:25 | XMS_ITS ---
Author Organization [facility] Address [address] [place] [phone] Care Team Providers Care Water Softener Installer Name Role Phone Danny (RETIRED) Benny DE GUZMAN Primary Care Provid er Unavailable Benny Sandoval Unavailable [phone] REASON FOR VISIT gerd,screening Encounters Encounter Location Date Provider Diagnosis [facility] [address] [place], [place] [phone] 03/05/2024 Benny Sandoval PLAN OF TREATMENT No Information
== END 2024-08-04 09:45 | disposition home or self-care (01) ==
LOC: HO.HMCSH 09:17
PROVIDERS: PCP Internal Medicine; Visit Provider Physician Assistant Medical
DX: Z00.00 Encounter for general adult medical examination without abnormal findings (principal); R10.2 Pelvic and perineal pain; E03.9 Hypothyroidism, unspecified; Z86.39 Personal history of other endocrine, nutritional and metabolic disease; E78.00 Pure hypercholesterolemia, unspecified; E78.5 Hyperlipidemia, unspecified; E06.3 Autoimmune thyroiditis; M54.2 Cervicalgia; G89.29 Other chronic pain; M54.50 Low back pain, unspecified; I10 Essential (primary) hypertension; K21.9 Gastro-esophageal reflux disease without esophagitis; F32.A Depression, unspecified; F41.9 Anxiety disorder, unspecified; M19.90 Unspecified osteoarthritis, unspecified site; E66.811 Obesity, class 1

== ENCOUNTER → 2024-08-04 09:17 | Outpatient (BNVA) | payer BC, SELFPAY | PROVIDERS: PCP Internal Medicine; Visit Provider Physician Assistant Medical ==

== ENCOUNTER 2024-08-25 08:35 | Outpatient (AMB) | payer BC, SELFPAY ==
--- NOTE | 2024-08-25 08:43 | A.OFFVIS_ITS ---
VS Expanded 08/25/24 08:44 08/25/24 08:51 Height 5 ft 8 in 5 ft 8 in Weight 185 lb 13.595 oz 186 lb BMI 28.3 28.3 Intake Visit Reasons: Obesity Allergies No Known Allergies [No Known Allergies*] Allergy (Verified 08/04/24 10:18) Nutrition Presentation Details: Pt presents for MNT for Obesity Pt reports having lost about 17 lbs in the past year and now has plateaued at 185-186 lbs Pt reports working on fasting from from 8pm to 1 pm food frequency: fruits: 1/x fish: 0x/wk dairy:0-1/wk vegetables: daily fluid: water, 12-16 oz/d, eoth: --- occ smoking: --- physical activity: ADL BS Monitoring Most Recent Diabetes Results: Cholesterol 207 mg/dL (<200) H 05/14/24 HDL Cholesterol 52 mg/dL (>40) 05/14/24 Triglycerides 78 mg/dL (<150) 05/14/24 Creatinine 0.81 mg/dL (0.5-1.4) 05/14/24 Blood Urea Nitrogen 22 mg/dL (9-16) H 05/14/24 Sodium 140 mmol/L (135-145) 05/14/24 Potassium 3.3 mmol/L (3.3-5.1) 05/14/24 Chloride 106 mmol/L (96-108) 05/14/24 Carbon Dioxide 27 mmol/L (22-29) 05/14/24 Calcium 9.0 mg/dL (8.4-10.2) 05/14/24 AST 32 U/L (5-31) H 05/14/24 ALT 38 U/L (0-31) H 05/14/24 Total Protein 7.1 g/dL (6.5-8.0) 05/14/24 Albumin 4.1 g/dL (3.5-5.0) 05/14/24 PBF-Bycjcta-Ys.Jeor Equation Height: 5 ft 8 in Weight: 186 lb Resting Metabolic Rate: 1515.34 Calculated Activity Level: Mild Activity Calories Needed to Maintain Weight: 2083.59 Diagnosis Nutrition problem #1: overweight/obesity As related to (etiology) #1: diagnosis As evidenced by (sign/symptom) #1: high BMI (28 on 08/25/24) [facility] Medical History (Updated 08/25/24 @ 09:35 by Carol Herrera, RD, LDN) Obesity (BMI 30.0-34.9) Annual physical exam Pelvic pain Hyperlipidemia LDL goal <100 Mild hypercholesterolemia History of mammogram (~09/20/23) History of thyroid nodule Chronic lymphocytic thyroiditis Chronic neck pain Left-sided low back pain without sciatica Hypothyroidism Diverticulitis Anxiety Depression Arthritis Hiatal hernia GERD (gastroesophageal reflux disease) HTN (hypertension) TIA (transient ischemic attack) Surgical History History of colonoscopy (~04/05/24) Hx of resection of large bowel History of partial hysterectomy History of esophagogastroduodenoscopy (EGD) Social History Are you a primary caregivers non medical to a significant other at home: No Do you presently have visiting nurse or other home services: No Patient Tobacco Use Status: Never used Tobacco Current occupational status: employed 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 Assessment & Plan Assessment & Plan (1) Obesity (BMI 30.0-34.9): Comment: Now overweight with bmi at 28 (08/31) Code(s): E66.811 - Obesity, class 1 Category: Medical Plan: Wt: 84 Kg ( 08/31 ) Est kcal needs as per MSJ: 2100 (40% carb, 30% protein/fat) Est fluid needs as per 25-30 ml/d: 2500 Est prot per day as per 1 g/kg bw: 84 Recommend fiber intake : 8-10 g per day and gradually increase to 25-28 g per day for women and 35-38 g for men or as tolerated Recommend sodium intake per day : less than 2000 mg Educated patient on: ( R = reviewed V = verbalizes understanding N/R = needs review N/A = not applicable * Food sources of carbohydrate, adequate serving sizes and its role in various health conditions: R V N/R * Differences between complex carbohydrates a simple carbohydrates, role of fiber in diet: R * Lean protein sources of foods: R V NR * Differences between types of fats and role in diet (mono on saturated fat fatty acids, saturated fatty acids, trans fats): R V N/R * Food sources of sodium in salt and healthy modifications for heart health in kidney health: R V R/V * Vitamins and minerals: R V N/R * Healthy plate method concept: R * Physical activity: Benefits a precaution: R * Patient Instructions: Follow healthy plate method at dinner; aim at 45 g carb per meal or less , 0-20 g as snack Choose whole grain foods(fruits/veg/starchy veg) and lean protein foods Keep hydrated by having water with meals/snacks , aim at 10 cups of fluid/d Coding Level of Care Code Nutr Indiv Intake (32728) Diagnoses Obesity (BMI 30.0-34.9) E66.811 Time Spent (min) 30
[2024-08-25 08:44] VITALS: BMI 28.3
[2024-08-25 08:51] VITALS: BMI 28.3
--- OUTSIDE RECORDS SUMMARY | 2024-08-25 09:22 | XMS_ITS ---
Author Organization [facility] Address [address] [place] [address] Care Team Providers Care Thread Weaver Name Role Phone Danny (RETIRED) Benny DE GUZMAN Primary Care Provid er Unavailable Benny Sandoval Unavailable [phone] Allergies No Known Allergies REASON FOR VISIT Patient presents today for a COLON SCREENING Medications Medication SIG (Take, Route, Frequency, Duration) Notes [...] Once a day for 30 day(s) Active Social History Tobacco Use: Social History Observation Description Date Details (start date - stop date) Never Smoker NA - NA Tobacco Use/Smoking Question Answer Notes Patient is [...] Never (0 point) Points 1 Interpretation Negative Section Notes: Nonsmoker; no sig alcohol Problems Problem Type SNOMED Code ICD Code Onset Dates Problem Status W/U Status Risk Notes Problem Gastroesophageal reflux disease (443854285) Chronic GERD (K21.9) Active confirmed Problem Screening for malignant neoplasm of colon (639514647) Encounter for screening for malignant neoplasm of colon (Z12.11) Active confirmed Vital Signs Blood pressure systolic 00 mm Hg 12/18/19 24 Blood pressure diastolic 00 mm Hg 024 Height 5 ft 8 in in 12/18/2023 Weight 187 lbs 12/18/2023 BMI 28.43 kg/m2 12/18/2023 Encounters Encounter Location Date Provider Diagnosis [facility] [address] [place] [address] 12/18/2023 Benny Sandoval Chronic GERD K21.9 and Encounter for screening for malignant neoplasm of colon Z12.11 Assessments Encounter Date Diagnosis (ICD Code) Assessment Notes Treatment Notes Treatment Clinical Notes Section Notes 12/18/2023 Chronic GERD (ICD-10 - K21.9) Stop Nabumetone for 1 week before the procedures Do not take aspirin for 3 days before the procedures Do not use the Hydrochlorothiazide the day before nor on the day of the procedures Overall, Chip appears well. Her reflux seems to be fairly stable on her daily omeprazole. We did review that her episodes of heartburn and reflux, particularly at night, are most likely related to eating too close to bedtime. I did advise her to continue to daily omeprazole but to try not to eat for several hours before bedtime. We also reviewed that eating smaller portions, watching her diet, and trying to lose some weight would benefit this condition as well. Given her very long-standing reflux and her last upper endoscopy being almost 20 years ago, I did recommend a followup endoscopy to rule out any component of significant esophagitis, Hdez's esophagus, and/or significant hiatal hernia. I also recommended a screening colonoscopy given her age and clinical appearance. We did review the rationale for that regard to colon cancer prevention. Full consent was obtained from her for both procedures, including risks of bleeding and perforation. The procedure will be done with monitored anesthesia care. She was given the below instructions regarding adjustment of her medication for the procedures. Chip was comfortable with this plan. Thank you again for allowing me to participate in Chip's care. I shall continue to keep you advised of her progress. 12/18/2023 Encounter for screening for malignant neoplasm of colon (ICD-10 - Z12.11) Overall, Chip appears well. Her reflux seems to be fairly stable on her daily omeprazole. We did review that her episodes of heartburn and reflux, particularly at night, are most likely related to eating too close to bedtime. I did advise her to continue to daily omeprazole but to try not to eat for several hours before bedtime. We also reviewed that eating smaller portions, watching her diet, and trying to lose some weight would benefit this condition as well. Given her very long-standing reflux and her last upper endoscopy being almost 20 years ago, I did recommend a followup endoscopy to rule out any component of significant esophagitis, Hdez's esophagus, and/or significant hiatal hernia. I also recommended a screening colonoscopy given her age and clinical appearance. We did review the rationale for that regard to colon cancer prevention. Full consent was obtained from her for both procedures, including risks of bleeding and perforation. The procedure will be done with monitored anesthesia care. She was given the below instructions regarding adjustment of her medication for the procedures. Chip was comfortable with this plan. Thank you again for allowing me to participate in Chip's care. I shall continue to keep you advised of her progress. Plan Of Treatment Treatment Notes Assessment Notes Chronic GERD Stop Nabumetone for 1 week before the procedures Do not take aspirin for 3 days before the procedures Do not use the Hydrochlorothiazide the day before nor on the day of the procedures Future Test Test Name Order Date UPPER GI ENDOSCOPY 12/18/2023 COLONOSCOPY 12/18/2023 Next Appt Details Follow Up: prn, Reason: Progress Notes * CHIP STEINERDOB:1974 (48 yo F)Acc No.[id number]:12/18/2023 Progress Notes Patient:?CHIP STEINER Provider:?Benny Sandoval MD :1975???Age:48 Y???Sex:Female D ate:12/18/2023 Address: [id number] Pcp:Benny Delgado, DO Subjective: * Chief Complaints: * ???Patient presents today fo r a COLON SCREENING * HPI: ???incontinence:? I saw Chip in consultation today in regard to further evaluation of her chronic gastroesophageal reflux and discussion of colorectal cancer screening. ?As you know, Chip is a 48-year-old female who presently feels well. I actually met her many years ago for evaluation of reflux. I don't have those records but it appears that she underwent an upper endoscopy with me in 2004. She reports that I told her of a hiatal hernia but no other worrisome findings. She has been on 20 mg chnn-ntf-sevplcm omeprazole daily since that time with generally good relief of reflux symptoms. She still has intermittent episodes at night that will awaken her although that is usually in relation to eating later in the evening and close to bedtime. She denies any anorexia, dysphagia, nausea, nor vomiting. She denies any abdominal pain, jaundice, nor weight loss. She reports that her bowel movements have been regular and without any bleeding. She has never had a colonoscopy. She denies any known family history of colon cancer. ?Laboratories from 2022 revealed normal chemistries, normal LFTs, and a normal CBC. * ROS:?General/Constitutional:?Change in appetite?denies.?Chills?denies.?Fatigue?denies.?Ophthalmologic:?Comments?all negative.?ENT:?Comments?all negative.?Respiratory:?hemoptysis?denies.?Cough?denies.?Cardiovascular:?Chest pain?denies.?Orthopnea?denies.?Gastrointestinal:?Comments?See HPI for details.?Genitourinary:?Hematuria?denies.?Dysuria?denies.?Musculoskeletal:?Painful joints?denies.?Weakness?denies.?Skin:?Itching?denies.?Rash?denies.?Neurologic:?Headache?denies.?Seizures?denies.?Psychiatric:?Comments?all negative.? * Medical History:? * Surgical History:?Partial hy sterectomy Sigmoid resection for diverticulitis in 2015 * Hospitalization/Major Diagno stic Procedure:?No Hospitalization History. * Family History:?Father: dece ased.?Mother: alive, afib, diagnosed with HTN (hypertension).? no known hx of colon cancer. * Social History:?Tobacco Use:?Tobacco Use/Smoking?Patient is a?nonsmoker.?Drugs/Alcohol:?Alcohol Screen?Did you have a drink containing alcohol in the past year??Yes,?How often did you have a drink containing alcohol in the past year??Monthly or less (1 point), How many drinks did you have on a typical day when you were drinking in the past year??1 or 2 drinks (0 point),?How often did you have 6 or more drinks on one occasion in the past year??Never (0 point),?Points?1,?Interpretation?Negative.?Miscellaneous:?Marital status: . 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 ???Nonsmoker; no sig alcohol. * Medications:?TakingAspir-Low 81 MG Tablet Delayed Release 1 tablet Orally Once a dayOmeprazole 20 MG Capsule Delayed Release 1 capsule 30 minutes before morning meal Orally Once a day, Notes: OTCNabumetone 750 MG Tablet Oral hydroCHLOROthiazide 50 MG Tablet Oral Synthroid 175 MCG Tablet Oral buPROPion HCl ER (XL) 300 MG Tablet Extended Release 24 Hour TAKE 1 TABLET BY MOUTH EVERY DAY IN THE MORNING Oral Medication List reviewed and reconciled with the patientTaking Aspir-Low 81 MG Tablet Delayed Release 1 tablet Orally Once a dayTaking Omeprazole 20 MG Capsule Delayed Release 1 capsule 30 minutes before morning meal Orally Once a day, Notes: OTCTaking Nabumetone 750 MG Tablet Oral Taking hydroCHLOROthiazide 50 MG Tablet Oral Taking Synthroid 175 MCG Tablet Oral Taking buPROPion HCl ER (XL) 300 MG Tablet Extended Release 24 Hour TAKE 1 TABLET BY MOUTH EVERY DAY IN THE MORNING Oral Medication List reviewed and reconciled with the patient * Allergies:?N.K.D.A.yes[Aller gies Verified] Objective: * Vitals:?Wt: 187 lbs, Ht: 5 f t 8 in, BMI:28.43 Index, BP: 00/00 mm Hg. * Examination: ???General Examination: ?GENERAL APPEARANCE:?pleasant, well nourished, well developed, in no acute distress.?EYES:?sclera non-icteric.?ORAL CAVITY:?mucosa moist.?NECK/THYROID:?no cervical lymphadenopathy, neck supple.?SKIN:?nonjaundiced, no spider angiomata.?HEART:?S1, S2 normal.?LUNGS:?clear to auscultation bilaterally.?ABDOMEN:?normal bowel sounds, no guarding or rigidity, no guarding or rigidity, no masses palpable, soft, nontender, nondistended.?EXTREMITIES:?no edema.?NEUROLOGIC:?alert and oriented.? Assessment: * Assessment: 1.?Chronic GERD - K21.9 (Paty dos santos)?2.?Encounter for screening for malignant neoplasm of colon - Z12.11? Overall, Chip appears well . Her reflux seems to be fairly stable on her daily omeprazole. We did review that her episodes of heartburn and reflux, particularly at night, are most likely related to eating too close to bedtime. I did advise her to continue to daily omeprazole but to try not to eat for several hours before bedtime. We also reviewed that eating smaller portions, watching her diet, and trying to lose some weight would benefit this condition as well. Given her very long-standing reflux and her last upper endoscopy being almost 20 years ago, I did recommend a followup endoscopy to rule out any component of significant esophagitis, Hdez's esophagus, and/or significant hiatal hernia. I also recommended a screening colonoscopy given her age and clinical appearance. We did review the rationale for that regard to colon cancer prevention. Full consent was obtained from her for both procedures, including risks of bleeding and perforation. The procedure will be done with monitored anesthesia care. She was given the below instructions regarding adjustment of her medication for the procedures. Chip was comfortable with this plan. Thank you again for allowing me to participate in Chip's care. I shall continue to keep you advised of her progress. Plan: * Treatment: Notes: Stop Nabumetone for 1 week before the procedures Do not take aspirin for 3 days before the procedures Do not use the Hydrochlorothiazide the day before nor on the day of the procedures??2.?Encounter for screening for malignant neoplasm of colon?Procedure: COLONOSCOPY (Ordered for 12/18/2023)* with MACsched for 03/05/24 at 11:40 ammiralax * Procedure Codes:?3017F COLOR ECTAL CA SCREEN DOC [id number] TOBACCO NON-DEAXT9336 BP SCR NOT PRFRM REC REASON NOS * Preventive Medicine:? ??Counseling:?Care goal follow-up plan:?Above Normal BMI Follow-up?Giving encouragement to exercise,?BMI management provided?Yes.? * Follow Up:?prn * * Sign off status: Completed true * Provider:?Benny Sandoval MD Date:? 024 Generated for Unique barnes/Miguel Ángel/eTransmitting on:?08/25/2024 09:22 AM EDT History and Physical Notes * HPI (History of Present Illness) Category Sub-Category Detail Notes Category Not es incontinence I saw Chip in consultation today in regard to further evaluation of her chronic gastroesophageal reflux and discussion of colorectal cancer screening. As you know, Chip is a 48-year-old female who presently feels well. I actually met her many years ago for evaluation of reflux. I don't have those records but it appears that she underwent an upper endoscopy with me in 2004. She reports that I told her of a hiatal hernia but no other worrisome findings. She has been on 20 mg mncs-muw-yhtccjn omeprazole daily since that time with generally good relief of reflux symptoms. She still has intermittent episodes at night that will awaken her although that is usually in relation to eating later in the evening and close to bedtime. She denies any anorexia, dysphagia, nausea, nor vomiting. She denies any abdominal pain, jaundice, nor weight loss. She reports that her bowel movements have been regular and without any bleeding. She has never had a colonoscopy. She denies any known family history of colon cancer. Laboratories from 2022 revealed normal chemistries, normal LFTs, and a normal CBC. Examination Category Sub-Category Detail Notes Category Not es General Examination GENERAL APPEARANCE: pleasant , well [...]
--- OUTSIDE RECORDS SUMMARY | 2024-08-25 09:22 | XMS_ITS | Patient Health Record ---
Author Organization [facility] Address [address] [place] [address] Care Team Providers Care Satellite Tv Technician Installer Name Role Phone Danny (RETIRED) Benny DE GUZMAN Primary Care Provid er Unavailable Benny Sandoval Unavailable [phone] Allergies No Known Allergies Results Component Value Reference Range Notes Pathology (Not yet reviewed by provider) Interpretation: Performing Lab:[facility], [address] [place] [id number] Notes/Report: Name: KeishamayitoWill nelda Modi Age/Sex: 48/F : 1975 Unit#: [id number] Attend Dr: Benny Sandoval MD Re04/05/24 Status : [facility] Location: [facility] Disch: SPEC : [id number] REC STATUS: TRACY IPNA NUM: [id number] ASHA: 04/05/[address] [facility] [address]: Benny Sandoval MD ENTERED: 04/05/24 36 SP TYPE: Surgical OTHR DR: Benny Delgado DO ORDERED: HE Stain/3, Gross Micro L4, Special st. 2, AB/PAS Addendum Addendum 1 Entered: 04/09/24 Additional level wit h AB/PAS is negative for intestinal metaplasia. Control stains appropriately. Addendum Signed ____ __(signature on file) Anushka Knippa 04/09/241140 Diagnosis Esophagogastric junc tion, 35 cm, biopsy: Squamous mucosa with hyperplasia, spongiosis, and focal intraepith elial neutrophils and eosinophils (up to 3 per high-power field) consistent with refl ux esophagitis, and columnar mucosa with mild chronic inflammation; no intestinal metapl arelis seen on initial levels; negative for dysplasia. Comment: Additional level wit h AB/PAS stain pending; addendum to follow. Clinical History Pre-Op Dx: Reflux, screening Post-Op Dx: Hiatal h ernia, reflux, hemorrhoids Microscopic Description Microscopic sections reviewed. Material Received EG junction 35 cm Gross Description Received in formalin labeled ?EG junction 35 cm? are 3 aguirre-pink irregular tissue fragments each measuring 0.3 c m, submitted in toto in a cassette labeled A. CEDS Special studies orde red and performed: AB/PAS stains on A1. CONTINUED ON NEXT PAGE Name: Will Steiner Age/Sex: 48/F : 1975 Unit#: [id number] Attend Dr: Benny Sandoval MD Re04/05/24 Status : [facility] Location: [facility] Disch: SPEC : [id number] RECD : 04/05/24 STATUS: [facility] NUM: [id number] ASHA: 04/05/[address] [facility] [address]: Benny Sandoval MD ENTERED: 04/05/24 36 SP TYPE: Surgical OTHR DR: Benny Delgado DO ORDERED: JACKIE Stain/3, Gross Micro L4, Special st. 2, AB/PAS Copies To: Benny Delgado DO [facility] [address] [place] [address] Benny Sandoval MD [address] [place] [address] Signed (si gnature on file) Anushka Singh 04/06/24 1057 END OF REPORT Reason For Referral Reason DO NOT USE THIS REFE RRAL Referring Provider First Name Benny Referring Provider Last Name Danny (RE TIRED) Referring Provider Speciality Internal edicine Referred Organization [facility] Referred Provider Benny Sandoval Referred Address [address] [place] [address], [address],[place], [place],[address],[place] Referred Provider Specialty Gastroentero logy Referral Priority Routine Referring Provider First Name Benny Referring Provider Last Name Danny (RE TIRED) Referring Provider Speciality Internal edicine Referred Organization [facility] Referred Provider Benny Sandoval Referred Address [address] [place] [address], [address],[place], [place],[address],[place] Referred Provider Specialty Gastroentero logy Referral Priority Routine Medications Medication SIG (Take, Route, Frequency, Duration) [...] Synthroid 175 MCG Oral for 80 Active Social History Tobacco Use: Social History [...] Problem Status W/U Status Risk Notes Problem Screening for malignant neoplasm of colon (182051761) Encounter for screening for malignant neoplasm of colon (Z12.11) Active confirmed Problem Gastroesophageal reflux disease (760576191) Gastroesophageal reflux disease (K21.9) Active confirmed Problem Gastroesophageal reflux disease (694660028) Chronic GERD (K21.9) Active confirmed Vital Signs Blood pressure diastolic 00 mm Hg 12/18/2023 Height 5 ft 8 in in 12/18/2023 Blood pressure systolic 00 mm Hg 12/18/2023 Weight 187 lbs 12/18/2023 BMI 28.43 kg/m2 12/18/2023 Encounters Encounter Location Date Provider Diagnosis [facility] [address] [place], [place] [id number] 04/05/2024 Benny Sandoval Colon cancer screeni ng Z12.11 ; Other hemorrhoids K64.8 ; Gastroesophageal reflux disease K21.9 ; Hiatal hernia K44.9 and Other specified disease of esophagus K22.89 [facility] [address] [place] [address] 12/18/2023 Benny Sandoval Chronic GERD K21.9 a nd Encounter for screening for malignant neoplasm of colon Z12.11 Assessments Encounter Date Diagnosis (ICD Code) Assessment Notes Treatment Notes Treatment Clinical Notes Section Notes 04/05/2024 Colon cancer screening (ICD-10 - [...] keep you advised of her progress. 12/18/2023 Chronic GERD (ICD-10 - K21.9) Stop [...] to keep you advised of her progress. 04/05/2024 Gastroesophageal reflux disease (ICD-10 - K21.9) 04/05/2024 Hiatal hernia (ICD-10 - K44.9) 04/05/2024 Other specified disease of esophagus (ICD-10 - K22.89) Plan Of Treatment Pending Test Test Name Order Date Pathology 04/05/2024 Future Test Test Name Order Date UPPER GI ENDOSCOPY 12/18/2023 COLONOSCOPY 12/18/2023 Insurance Providers Payer Name Payer Address Payer Phone Subscriber Number Group Number Insured Name Patient Relationship to Insured Coverage Start Date Coverage End Date [facility] [address] [place] [address] [phone] [id number] CHIP DUKE Self - patient is the insured Medical (General) History Medical History History ICD Code TIA'S Hypertension GERD--EGD 2004 with me--she reports that I told her of a hiatal hernia Arthritis Depression/Anxiety Denies AK,DM,CVA,Lung disease,renal dise ase Surgical History Surgery Date(Month/Year) Partial hysterectomy Sigmoid resection for diverticulitis in 2014
--- OUTSIDE RECORDS SUMMARY | 2024-08-25 09:23 | XMS_ITS ---
Author Organization [facility] Address [address] [place] [id number] Care Team Providers Care Silver Recovery Operator Name Role Phone Danny (RETIRED) Benny DE GUZMAN Primary Care Provid er Unavailable Benny Sandoval Unavailable [phone] REASON FOR VISIT gerd,screening Encounters Encounter Location Date Provider Diagnosis [facility] Outpatient [address] [place] [phone] 03/05/2024 Benny Sandoval Plan Of Treatment No Information Progress Notes * CHIP STEINERDOB:1974 (49 yo F)Acc No.[id number]:03/05/2024 EGD and COL/MAC Patient:?CHIP STEINER Provider:?Benny Sandoval MD :1975???Age:48 Y???Sex:Female D ate:03/05/2024 Address:[address] [place], [place] [address] Pcp:Benny Delgado (RETIRE D), DO Subjective: * Chief Complaints: * ???1. Gerd,screening. * Medical History:? Objective: * Vitals:? Assessment: Plan: * Treatment: * * The named appointment provid er may or may not be the originator of this progress note, and it is not deemed complete until electronically signed by the appointment provider. Sign off status: Pending * Provider:?Benny Sandoval MD Date:? 024 Generated for Printi ng/Fakrystiang/eTransmitting on:?08/25/2024 09:22 AM EDT
--- OUTSIDE RECORDS SUMMARY | 2024-08-25 09:23 | XMS_ITS ---
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 Role Phone Danny (RETIRED) Benny DE GUZMAN Primary Care Provid er Unavailable Benny Sandoval Unavailable [phone] REASON FOR VISIT gerd,screening Problems Problem Type SNOMED Code ICD Code Onset Dates Problem Status W/U Status Risk Notes Problem Gastroesophageal reflux disease (086235706) Gastroesophageal reflux disease (K21.9) Active confirmed Encounters Encounter Location Date Provider Diagnosis [facility] [place] [address] [place] [id number] 04/05/2024 Benny Sandoval Colon cancer screeni ng Z12.11 ; Other hemorrhoids K64.8 ; Gastroesophageal reflux disease K21.9 ; Hiatal hernia K44.9 and Other specified disease of esophagus K22.89 Assessments Encounter Date Diagnosis (ICD Code) Assessment Notes Treatment Notes Treatment Clinical Notes Section Notes 04/05/2024 Colon cancer screening (ICD-10 - Z12.11) 04/05/2024 Other hemorrhoids (ICD-10 - K64.8) 04/05/2024 Gastroesophageal reflux disease (ICD-10 - K21.9) 04/05/2024 Hiatal hernia (ICD-10 - K44.9) 04/05/2024 Other specified disease of esophagus (ICD-10 - K22.89) Plan Of Treatment No Information Progress Notes * NEWHENRYCHIPDOB:1974 (49 yo F)Acc No.[id number]:04/05/2024 EGD and COL/MAC Patient:?JATIN CHIP Provider:?Benny Sandoval MD :1975???Age:48 Y???Sex:Female D ate:04/05/2024 Address:[address] [facility] Pcp:Benny Delgado (RETIRE D), DO Subjective: * Chief Complaints: * ???1. Gerd,screening. * Medical History:? Objective: * Vitals:? Assessment: * Assessment: 1.?Colon cancer screening - Z12.11 (Primary)???2.?Other hemorrhoids - K64.8???3.?Gastroesophageal reflux disease - K21.9???4.?Hiatal hernia - K44.9???5.?Other specified disease of esophagus - K22.89??? Plan: * Treatment: * Procedure Codes:?68523 DIAGN OSTIC COLONOSCOPY, Modifiers: 33 , 05878 UPPER GI ENDOSCOPY, BIOPSY * * The named appointment provid er may or may not be the originator of this progress note, and it is not deemed complete until electronically signed by the appointment provider. Sign off status: Pending * Provider:?Benny Sandoval MD Date:? 024 Generated for Unique barnes/Miguel Ángel/eTransmitting on:?08/25/2024 09:22 AM EDT
== END 2024-08-25 09:34 | disposition home or self-care (01) ==
LOC: HO.ENCR 08:35
PROVIDERS: PCP Internal Medicine; Visit Provider Dietitian, Registered
DX: E66.811 Obesity, class 1 (principal)

== ENCOUNTER → 2024-08-25 08:35 | Outpatient (BNVA) | payer BC, SELFPAY | PROVIDERS: PCP Internal Medicine; Visit Provider Dietitian, Registered | DX: E66.811 Obesity, class 1 (principal); Z68.28 Body mass index [BMI] 28.0-28.9, adult; Z71.3 Dietary counseling and surveillance | CPT/HCPCS: 97802 ==

== ENCOUNTER 2024-09-23 08:56 | Outpatient (AMB) | payer BC, SELFPAY ==
[2024-09-23 08:58] VITALS: BP 120/84; PULSE 76; O2SAT 96; BMI 29.0
--- NOTE | 2024-09-23 08:58 | A.OFFVIS_ITS ---
Vital Signs 09/23/24 08:58 Height 5 ft 8 in Weight 190 lb 14.725 oz BMI 29.0 BP 120/84 Blood Pressure Location Lt brachial Position Sitting Pulse 76 Pulse Source Pulse Oximeter Pulse Oximetry (%) 96 Oxygen Delivery Method Room Air Intake Visit Reasons: Hypothyroidism Intake Note: New patient internally referred by PCP for Hypothyroidism. Area Field Person Required: No Accompanied by: Self / Same As Patient Allergies No Known Allergies [No Known Allergies*] Allergy (Verified 09/23/24 09:02) Medication List - Last Reconciled 09/23/24 by Michela Gamez MD aspirin 81 mg PO DAILY bupropion HCl XL 300 mg PO DAILY 90 days calcium carbonate-vitamin D3 600 mg-5 mcg (200 unit) (Calcium 600 + D(3)) 1 tab PO DAILY cyclobenzaprine 10 mg PO TID PRN glucosamine-chondroitin 500-400 mg 1 cap PO DAILY hydrochlorothiazide 50 mg PO DAILY lactobacillus combination no.4 (Probiotic) 3,000 mmu cells PO DAILY multivitamin 1 tab PO DAILY nabumetone 750 mg PO BID omeprazole 20 mg PO DAILY Synthroid (levothyroxine) 175 mcg PO DAILY NS HPI Comments Details: 49-year-old female with a history of hypothyroidism and nontoxic multinodular goiter. Coming in today for initial visit. Diagnosed with hypothyroidism in her 20s, started on levothyroxine then , with the generic formulation she continued to have persistent tirdeness and then was switched to brand name Synthroid which she feels better on. Currently on Synthroid 175 mcg daily Friday to Friday and 2 pills on Sundays . Had some fluctuations in dosing back in early 2023, now has been on this dose for about 6 months. Last set of labs 06/01 showed normal TSH 3.26. Saw endo at [facility]. FNA biopsy done of 1 of her thyroid nodules at [facility] in 2019, I do not records of these, per patient the result was benign and was told no fup was needed . Patient currently denies heat or cold intolerance, diarrhea or constipation, hair loss, palpitation, anxiety, weight changes, mood changes, changes in appearance of eyes or vision changes, tremors, increased diaphoresis or dry skin. Reports increased tiredness. ? Patient denies any difficulty swallowing, pain on swallowing or voice changes or difficulty breathing. Patient denies any history of childhood neck radiation. Denies having ever used lithium, amiodarone or biotin supplements. Patient denies any family history of thyroid cancer. Great grand mother : hypothyroidism Review of systems Constitutional: no fevers, chills or weight loss HEENT: no changes in vision Cardiac: No chest pain, discomfort or palpitations. Pulmonary: No SOB GI:No abdominal pain, no nausea or vomiting, no anorexia, no blood in stool : no burning micturition, dysuria or increase in urinary frequency Physical exam General: sitting comfortably in no acute distress HEENT: normocephalic/atraumatic, Neck: supple, symmetrical, no thyromegaly Cardiac: normal heart sounds Pulm: normal breath sounds B/L, no added breath sounds Abd: not distended, no tenderness Extremities: no edema, no signs of myxedema Neuro: AAO x3, Speech: normal, no facial droop, moving all 4 extremities Laboratory Tests 10/03/18 04/30/21 05/23/22 10:00 12:51 09:35 TSH 3rd Generation 1.75 TSH 2.00 0.63 04/16/23 07/29/23 05/14/24 07:42 14:37 09:27 TSH 3rd Generation TSH 0.01 L 8.19 H 3.26 PFSH Medical History (Updated 09/23/24 @ 09:25 by Michela Gamez MD) Obesity (BMI 30.0-34.9) Annual physical exam Pelvic pain Hyperlipidemia LDL goal <100 Mild hypercholesterolemia History of mammogram (~09/20/23) History of thyroid nodule Chronic lymphocytic thyroiditis Chronic neck pain Left-sided low back pain without sciatica Hypothyroidism Diverticulitis Anxiety Depression Arthritis Hiatal hernia GERD (gastroesophageal reflux disease) HTN (hypertension) TIA (transient ischemic attack) Surgical History History of colonoscopy (~04/05/24) Hx of resection of large bowel History of partial hysterectomy History of esophagogastroduodenoscopy (EGD) Social History Are you a primary critical care educator to a significant other at home: No Do you presently have visiting nurse or other home services: No Patient Tobacco Use Status: Never used Tobacco Current occupational status: employed 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 Exam Vital Signs: Last Vital Signs Pulse 76 09/23/24 08:58 BP 120/84 09/23/24 08:58 Pulse Ox 96 09/23/24 08:58 Oxygen Delivery Method Room Air 09/23/24 08:58 BMI result Body Mass Index 29.0 Assessment & Plan Assessment & Plan (1) Hypothyroidism: Code(s): E03.9 - Hypothyroidism, unspecified Category: Medical Qualifiers: 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 Last set of labs are from May 2024 when TSH was normal at 3.26. Today she is complaining of some increased tiredness. We will repeat thyroid function tests. Plan: -continue Synthroid 175 mcg daily -ordered TSH and free T4 to be done -follow up in 7 weeks to discuss results (2) History of thyroid nodule: Comment: s/p thyroid ultrasound/FNA on 04/01/2019 at [facility] Code(s): Z86.39 - Personal history of other endocrine, nutritional and metabolic disease Category: Medical Plan: Patient with no family history of thyroid cancer, with no personal history of head or neck radiation who also has a history of thyroid nodule/nodules with FNA in 2019 at [facility], I do not have records of these, however per patient biopsy was benign. We will try to obtain records. We will also repeat an ultrasound since it has been at least 6-7 years since that biopsy. Currently she does not have any compressive symptoms. 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
== END 2024-09-23 09:24 | disposition home or self-care (01) ==
LOC: HO.ENCR 08:57
PROVIDERS: PCP Internal Medicine; Visit Provider Student in an Organized Health Care Education/Training Program
DX: E06.3 Autoimmune thyroiditis (principal); Z86.39 Personal history of other endocrine, nutritional and metabolic disease
CPT/HCPCS: 99204

== ENCOUNTER → 2024-09-23 08:56 | Outpatient (BNVA) | payer BC, SELFPAY | PROVIDERS: PCP Internal Medicine; Visit Provider Student in an Organized Health Care Education/Training Program ==

== ENCOUNTER 2024-09-23 09:33 | Outpatient (REF) | payer BC, SELFPAY ==
[2024-09-23 13:27] LABS: Free T4 (Free Thyroxine) 1.52 ng/dL (0.71-1.85)
== END 2024-09-23 09:34 | disposition home or self-care (01) ==
LOC: HO.10HDL 09:33
PROVIDERS: Visit Provider Student in an Organized Health Care Education/Training Program
DX: E03.9 Hypothyroidism, unspecified (principal)
CPT/HCPCS: 36415; 84439; 84443

== ENCOUNTER 2024-09-25 08:15 | Outpatient (REF) | payer BC, SELFPAY | END 2024-09-25 08:16 | disposition home or self-care (01) | LOC: HO.MAMMO 08:15 | PROVIDERS: PCP Internal Medicine; Visit Provider Internal Medicine | DX: Z12.31 Encounter for screening mammogram for malignant neoplasm of breast (principal) | CPT/HCPCS: 77063; 77067 ==

== ENCOUNTER → 2024-09-25 08:15 | Outpatient (BNV) | payer BC, SELFPAY | PROVIDERS: PCP Internal Medicine; Visit Provider Internal Medicine | DX: Z12.31 Encounter for screening mammogram for malignant neoplasm of breast (principal) | CPT/HCPCS: 77063; 77067 ==

== ENCOUNTER 2024-10-01 10:29 | Outpatient (REF) | payer BC, SELFPAY ==
--- NOTE | ~2024-10-01 | US_ITS ---
EXAMINATION: US THYROID CLINICAL INFORMATION: Personal history of other endocrine notational and metabolic. COMPARISON: None available. TECHNIQUE: Linear transducer grayscale and color Doppler examination with attention to the region of the thyroid. FINDINGS: SIZE: Measurements of the thyroid lobes and nodules are given in sagittal, anteroposterior and transverse dimensions respectively. Right Thyroid Lobe: 3.4 x 1.6 x 1.1 cm, volume 3.1 mL. Parenchyma: The gland echotexture is heterogeneous. Thyroid vascularity is increased. Left Thyroid Lobe: 3.5 x 1.2 x 1.3 cm, volume 2.9 mL. Parenchyma: The gland echotexture is heterogeneous. Thyroid vascularity is increased. Isthmus: 0.2 cm in maximum AP dimension. Estimated total number of nodules greater than or equal to 1 cm: 0. Assembly Member nodules are described as follows: Heterogeneous small anechoic areas involving mostly the right thyroid lobe without dominant nodule. Nonspecific prominent 2.3 cm lymph nodes, level 4 on the left side of the neck. US/US thyroid IMPRESSION: Heterogeneous thyroid parenchyma without enlargement or dominant nodule. ACR TI-RADS RECOMMENDATION REFERENCE: Ultrasound-guided fine-needle aspiration, followup ultrasound, no further follow up. * TR1 (0 point) and TR2 (2 points): No FNA or follow up. * TR3 (3 points): FNA if more than or equal to 2.5 cm in maximum dimension, followup ultrasound in 1, 3 and 5 years if 1.5 to 2.4 cm in maximum dimension. * TR4 (4-6 points): FNA if more than or equal to 1.5 cm in maximum dimension, followup ultrasound in 1, 2, 3 and 5 years if 1 to 1.4 cm in maximum dimension. * TR5 (more than or equal to 7 points): FNA if more than or equal to 1 cm in maximum dimension, followup ultrasound every year for 5 years if 0.5 to 0.9 cm in maximum dimension. * TR3, TR4 or TR5 nodules that are below the size threshold for followup receive no follow up. Electronically signed by: Khalif Mccracken MD 10/04/2024 02:33 PM EDT
== END 2024-10-01 10:30 | disposition home or self-care (01) ==
LOC: HO.HMGCX 10:29
PROVIDERS: PCP Internal Medicine; Visit Provider Student in an Organized Health Care Education/Training Program
DX: Z86.39 Personal history of other endocrine, nutritional and metabolic disease (principal)
CPT/HCPCS: 76536

== ENCOUNTER → 2024-10-01 10:35 | Outpatient (BNV) | payer BC, SELFPAY | PROVIDERS: PCP Internal Medicine; Visit Provider Radiology Diagnostic Radiology | DX: E07.89 Other specified disorders of thyroid (principal) | CPT/HCPCS: 76536 ==

== ENCOUNTER 2024-10-28 14:52 | Outpatient (REF) | payer BC, SELFPAY ==
--- NOTE | ~2024-10-28 | XR_ITS ---
EXAMINATION: XR CHEST CLINICAL INFORMATION: R05.9 - Cough, unspecified COMPARISON: August 07, 2021. TECHNIQUE: 2 views of the chest were obtained. FINDINGS: Bilateral apical lung scarring. No gross consolidation pleural effusion or pneumothorax. Cardiomediastinal silhouette size is normal. Multilevel thoracic spondylosis. XR/XR chest 2V IMPRESSION: No acute airspace disease. Electronically signed by: Khalif Mccracken MD 10/28/2024 03:43 PM EDT
== END 2024-10-28 14:53 | disposition home or self-care (01) ==
LOC: HO.HMGCX 14:52
PROVIDERS: PCP Internal Medicine; Visit Provider Physician Assistant Medical
DX: R05.9 Cough, unspecified (principal)
CPT/HCPCS: 71046

== ENCOUNTER → 2024-10-28 15:03 | Outpatient (BNV) | payer BC, SELFPAY | PROVIDERS: PCP Internal Medicine; Visit Provider Radiology Diagnostic Radiology | DX: R05.9 Cough, unspecified (principal) | CPT/HCPCS: 71046 ==

== ENCOUNTER 2024-11-03 09:07 | Outpatient (AMB) | payer BC, SELFPAY ==
[2024-11-03 09:17] VITALS: BMI 27.6
--- NOTE | 2024-11-03 09:17 | A.OFFVIS_ITS ---
VS Expanded 11/03/24 09:17 Height 5 ft 8 in Weight 181 lb 3.52 oz BMI 27.6 Intake Visit Reasons: Obesity Allergies No Known Allergies [No Known Allergies*] Allergy (Verified 09/23/24 09:02) Nutrition Presentation Details: Pt presents for MNT f/u for obesity Pt reports working on meal planning and fasting from 7pm to 11 am , doing well BS Monitoring Most Recent Diabetes Results: No Data to Display [facility] Medical History (Updated 11/03/24 @ 09:[address], LDN) Cough Obesity (BMI 30.0-34.9) Annual physical exam Pelvic pain Hyperlipidemia LDL goal <100 Mild hypercholesterolemia History of mammogram (~09/20/23) History of thyroid nodule Chronic lymphocytic thyroiditis Chronic neck pain Left-sided low back pain without sciatica Hypothyroidism Diverticulitis Anxiety Depression Arthritis Hiatal hernia GERD (gastroesophageal reflux disease) HTN (hypertension) TIA (transient ischemic attack) Surgical History (Updated 10/26/24 @ 14:58 by Becka Meza) History of colonoscopy (~04/05/24) Hx of resection of large bowel History of partial hysterectomy History of esophagogastroduodenoscopy (EGD) (~04/05/24) Social History Are you a primary personal care worker to a significant other at home: No Do you presently have visiting nurse or other home services: No Patient Tobacco Use Status: Never used Tobacco Current occupational status: employed 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 Assessment & Plan Assessment & Plan (1) Obesity (BMI 30.0-34.9): Comment: Now overweight with bmi at 27.6 (10/31) Code(s): E66.811 - Obesity, class 1 Category: Medical Plan: Wt: 84 Kg ( 08/31 ), 82 kg (10/31) Est kcal needs as per MSJ: 2100 (40% carb, 30% protein/fat) Est fluid needs as per 25-30 ml/d: 2500 Est prot per day as per 1 g/kg bw: 84 Recommend fiber intake : 8-10 g per day and gradually increase to 25-28 g per day for women and 35-38 g for men or as tolerated Recommend sodium intake per day : less than 2000 mg Educated patient on: ( R = reviewed V = verbalizes understanding N/R = needs review N/A = not applicable * Food sources of carbohydrate, adequate serving sizes and its role in various health conditions: R * Differences between complex carbohydrates a simple carbohydrates, role of fiber in diet: R * Lean protein sources of foods: R * Differences between types of fats and role in diet (mono on saturated fat fatty acids, saturated fatty acids, trans fats): R V N/R * Food sources of sodium in salt and healthy modifications for heart health in kidney health: R V R/V * Vitamins and minerals: R * Healthy plate method concept: R * Physical activity: Benefits a precaution: R * Patient Instructions: Continue following healthy plate method engage in physical activity goal 30 -40 min 3-4 times a week unless otherwise specified by MD keep hydrated choosing water/low fat milk /fruit/herb infused water Coding Level of Care Code Nutr Indiv Subseq (07334) Diagnoses Obesity (BMI 30.0-34.9) E66.811 Time Spent (min) 25
== END 2024-11-03 09:33 | disposition home or self-care (01) ==
LOC: HO.ENCR 09:08
PROVIDERS: PCP Internal Medicine; Visit Provider Dietitian, Registered
DX: E66.811 Obesity, class 1 (principal)

== ENCOUNTER → 2024-11-03 09:07 | Outpatient (BNVA) | payer BC, SELFPAY | PROVIDERS: PCP Internal Medicine; Visit Provider Dietitian, Registered | DX: E66.811 Obesity, class 1 (principal); Z68.27 Body mass index [BMI] 27.0-27.9, adult; Z71.3 Dietary counseling and surveillance | CPT/HCPCS: 97803 ==

== ENCOUNTER 2024-11-11 09:35 | Outpatient (AMB) | payer BC, SELFPAY ==
[2024-11-11 09:47] VITALS: BP 114/76; PULSE 75; O2SAT 99; BMI 28.4
--- NOTE | 2024-11-11 09:47 | MHC.OFFVIS ---
Vital Signs 11/11/24 09:47 Height 5 ft 8 in Weight 186 lb 15.232 oz BMI 28.4 BP 114/76 Blood Pressure Location Lt brachial Position Sitting Pulse 75 Pulse Source Pulse Oximeter Pulse Oximetry (%) 99 Oxygen Delivery Method Room Air Intake Visit Reasons: Hypothyroidism Intake Note: Patient present today for Hypothyroidism office visit. Medical Assistant Ob Gyn Required: No Accompanied by: Self / Same As Patient Allergies No Known Allergies [No Known Allergies*] Allergy (Verified 11/11/24 09:52) Medication List - Last Reconciled 11/11/24 by Michela Gamez MD aspirin 81 mg PO DAILY bupropion HCl XL 300 mg PO DAILY 90 days calcium carbonate-vitamin D3 600 mg-5 mcg (200 unit) (Calcium 600 + D(3)) 1 tab PO DAILY cyclobenzaprine 10 mg PO TID PRN glucosamine-chondroitin 500-400 mg 1 cap PO DAILY hydrochlorothiazide 50 mg PO DAILY lactobacillus combination no.4 (Probiotic) 3,000 mmu cells PO DAILY multivitamin 1 tab PO DAILY nabumetone 750 mg PO BID omeprazole 20 mg PO DAILY Synthroid (levothyroxine) 175 mcg PO DAILY NS HPI Comments Details: 49-year-old female with a history of hypothyroidism and nontoxic multinodular goiter. Coming in today for follow up. HPI Diagnosed with hypothyroidism in her 20s, started on levothyroxine then , with the generic formulation she continued to have persistent tirdeness and then was switched to brand name Synthroid which she feels better on. Currently on Synthroid 175 mcg daily Friday to Friday and 2 pills on Sundays . Had some fluctuations in dosing back in early 2023, now has been on this dose for about 6 months. Last set of labs 06/01 showed normal TSH 3.26. Saw endo at [facility]. FNA biopsy done of 1 of her thyroid nodules at [facility] in 2019, I do not records of these, per patient the result was benign and was told no fup was needed . Patient currently denies heat or cold intolerance, diarrhea or constipation, hair loss, palpitation, anxiety, weight changes, mood changes, changes in appearance of eyes or vision changes, tremors, increased diaphoresis or dry skin. Reports increased tiredness. ? Patient denies any difficulty swallowing, pain on swallowing or voice changes or difficulty breathing. Patient denies any history of childhood neck radiation. Denies having ever used lithium, amiodarone or biotin supplements. Patient denies any family history of thyroid cancer. Great grand mother : hypothyroidism Interval history 09/23/2024: TSH and free T4 within normal range 10/01/2024: Ultrasound of the thyroid showed increased vascularity and a heterogeneous gland without any discrete nodules. Physical exam General: sitting comfortably in no acute distress HEENT: normocephalic/atraumatic, Neck: supple, symmetrical, no thyromegaly Cardiac: normal heart sounds Pulm: normal breath sounds B/L, no added breath sounds Abd: not distended, no tenderness Laboratory Tests 10/03/18 04/30/21 05/23/22 10:00 12:51 09:35 TSH 3rd Generation 1.75 TSH 2.00 0.63 04/16/23 07/29/23 05/14/24 07:42 14:37 09:27 TSH 3rd Generation TSH 0.01 L 8.19 H 3.26 Laboratory Tests 09/23/24 09:36 TSH 0.80 Free T4 1.52 US THYROID 10/01/24 CLINICAL INFORMATION: Personal history of other endocrine notational and metabolic. COMPARISON: None available. TECHNIQUE: Linear transducer grayscale and color Doppler examination with attention to the region of the thyroid. FINDINGS: SIZE: Measurements of the thyroid lobes and nodules are given in sagittal, anteroposterior and transverse dimensions respectively. Right Thyroid Lobe: 3.4 x 1.6 x 1.1 cm, volume 3.1 mL. Parenchyma: The gland echotexture is heterogeneous. Thyroid vascularity is increased. Left Thyroid Lobe: 3.5 x 1.2 x 1.3 cm, volume 2.9 mL. Parenchyma: The gland echotexture is heterogeneous. Thyroid vascularity is increased. Isthmus: 0.2 cm in maximum AP dimension. Estimated total number of nodules greater than or equal to 1 cm: 0. Lavatory Attendant nodules are described as follows: Heterogeneous small anechoic areas involving mostly the right thyroid lobe without dominant nodule. Nonspecific prominent 2.3 cm lymph nodes, level 4 on the left side of the neck. US/US thyroid IMPRESSION: Heterogeneous thyroid parenchyma without enlargement or dominant nodule. [facility] Medical History (Updated 11/03/24 @ 09:38 by Carol Herrera, ALEXANDER, LDN) Cough Obesity (BMI 30.0-34.9) Annual physical exam Pelvic pain Hyperlipidemia LDL goal <100 Mild hypercholesterolemia History of mammogram (~09/20/23) History of thyroid nodule Chronic lymphocytic thyroiditis Chronic neck pain Left-sided low back pain without sciatica Hypothyroidism Diverticulitis Anxiety Depression Arthritis Hiatal hernia GERD (gastroesophageal reflux disease) HTN (hypertension) TIA (transient ischemic attack) Surgical History (Updated 10/26/24 @ 14:58 by Becka Meza) History of colonoscopy (~04/05/24) Hx of resection of large bowel History of partial hysterectomy History of esophagogastroduodenoscopy (EGD) (~04/05/24) Social History Are you a primary care team assistant to a significant other at home: No Do you presently have visiting nurse or other home services: No Patient Tobacco Use Status: Never used Tobacco Current occupational status: employed 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 Last set of labs from September 2024 showed normal TSH. She is bothered by her tiredness but a TSH is on the lower side so I would not feel comfortable increasing her Synthroid. Discussed with patient to discuss with PCP regarding further causes tiredness. Otherwise she has good hemoglobin, good vitamin-D levels from labs from May 2024.. Plan: -continue Synthroid 175 mcg daily -ordered TSH and free T4 to be done prior to follow up in 1 year (2) History of thyroid nodule: Comment: s/p thyroid ultrasound/FNA on 04/01/2019 at [facility] Code(s): Z86.39 - Personal history of other endocrine, nutritional and metabolic disease Category: Medical Plan: Patient with no family history of thyroid cancer, with no personal history of head or neck radiation who also has a history of thyroid nodule/nodules with FNA in 2019 at [facility], I do not have records of these, however per patient biopsy was benign. Repeat ultrasound done most recently here at 09/26 10/31 showed no discrete nodules, showed overall a heterogenous gland with increased vascularity consistent with Cheri's disease. At this point no need to follow up for this. 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
== END 2024-11-11 10:07 | disposition home or self-care (01) ==
LOC: HO.ENCR 09:36
PROVIDERS: PCP Internal Medicine; Visit Provider Student in an Organized Health Care Education/Training Program
DX: E06.3 Autoimmune thyroiditis (principal); Z86.39 Personal history of other endocrine, nutritional and metabolic disease
CPT/HCPCS: 99213

== ENCOUNTER → 2024-11-11 09:35 | Outpatient (BNVA) | payer BC, SELFPAY | PROVIDERS: PCP Internal Medicine; Visit Provider Student in an Organized Health Care Education/Training Program ==

== ENCOUNTER 2024-11-18 11:31 | Outpatient (AMB) | payer BC, SELFPAY ==
--- NOTE | 2024-11-18 11:34 | MHC.OFFVIS ---
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 Strategy Associate: Strategy Associate Present (Cammie Edwards ) Accompanied by: Self / Same As Patient Allergies No Known Allergies [No Known Allergies*] Allergy (Verified 11/18/24 11:40) Is last menstrual period known: No Post menopausal: Yes Patient : No HPI Comments Details: Presenting for annual exam. No complaints. Last Pap/HPV was 7 years ago was negative, the patient is status post hysterectomy for benign disease Last Mammogram while BI-RADS 1 in 10/01 Last Colonoscopy was done in 04/01, the recommendation was to repeat in 10 years [facility] Medical History Cough Obesity (BMI 30.0-34.9) Annual physical exam Pelvic pain Hyperlipidemia LDL goal <100 Mild hypercholesterolemia History of mammogram (~09/20/23) History of thyroid nodule Chronic lymphocytic thyroiditis Chronic neck pain Left-sided low back pain without sciatica Hypothyroidism Diverticulitis Anxiety Depression Arthritis Hiatal hernia GERD (gastroesophageal reflux disease) HTN (hypertension) TIA (transient ischemic attack) Surgical History History of colonoscopy (~04/05/24) Hx of resection of large bowel History of partial hysterectomy History of esophagogastroduodenoscopy (EGD) (~04/05/24) Family History Paternal Aunt Breast cancer Social History Are you a primary career services officer to a significant other at home: No Do you presently have visiting nurse or other home services: No Patient Tobacco Use Status: Never used Tobacco Patient : No Current occupational status: employed 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 Female Reproductive History Menstrual Age of Menarche: 12 control method: none Total pregnancies: 3 Full term: 3 Number of Living Children: 3 History of abnormal pap smear: No Date of Mammogram: 09/25/24 (bi rad 1) Review of Systems Const All systems reviewed & are unremarkable except as noted in HPI and below Card Reports as per HPI and Reports no additional complaints Resp Reports as per HPI and Reports no additional complaints GI Reports as per HPI and Reports no additional complaints Reports as per HPI Physical Exam Vital Signs: Last Vital Signs BP 110/76 11/18/24 11:41 BMI result Body Mass Index 27.7 Const General: cooperative, healthy appearing and comfortable General: Yes bladder normal to palpation External Female Exam: No lesion Speculum Exam - Vagina: normal appearance of the vagina, normal vaginal discharge and not erythematous Speculum Exam - Cervix: Cervix absent Bimanual exam- vagina & uterus: bladder normal to palpation and uterus absent Bimanual Exam- Adnexa, other: Other (No masses detected) Assessment & Plan Assessment & Plan (1) Well woman exam: Code(s): Z01.419 - Encounter for gynecological examination (general) (routine) without abnormal findings Category: Medical Plan: Co testing not indicated since the patient has no history of abnormal Pap smear and is status post hysterectomy for benign disease. Counseled the patient about the recommended dietary allowance of 1200 mg of Calcium & 600 IU of vitamin D. Instructions given the patient is schedule next screening Mammogram in 04/02. The patient was instructed to perform monthly self-breast exams and schedule annual exam in a year. All questions answered and the patient verbalized understanding. Coding Level of Care Code Est Pt Prev Care 40-64y(14031) Diagnoses Well woman exam Z01.419
[2024-11-18 11:41] VITALS: BP 110/76; BMI 27.7
== END 2024-11-18 11:56 | disposition home or self-care (01) ==
PROVIDERS: PCP Internal Medicine; Visit Provider Obstetrics & Gynecology
DX: Z01.419 Encounter for gynecological examination (general) (routine) without abnormal findings (principal)
CPT/HCPCS: 99396; 99459

== ENCOUNTER 2025-01-05 11:24 | Outpatient (AMB) | payer BC, SELFPAY ==
[2025-01-05 11:25] VITALS: BP 126/74; PULSE 83; RESP 16; TEMP 36.6; O2SAT 96; BMI 28.9
--- NOTE | 2025-01-05 11:25 | MHC.PC.OV ---
Vital Signs 01/05/25 11:25 Height 5 ft 6.73 in Weight 183 lb 2 oz BMI 28.9 BP 126/74 Blood Pressure Location Rt brachial Position Sitting Respiration 16 Pulse 83 Pulse Source Pulse Oximeter Temp 98 F Temp Source Temporal Artery Scan Pulse Oximetry (%) 96 Oxygen Delivery Method Room Air Intake Visit Reasons: foot injury Trimmer Loader Required: No Accompanied by: Self / Same As Patient Allergies No Known Allergies (No Known Allergies*) Allergy (Verified 01/05/25 11:41) Medication List - Last Reconciled 01/05/25 by Marlen Shah PA-C aspirin 81 mg PO DAILY bupropion HCl XL 300 mg PO DAILY 90 days calcium carbonate-vitamin D3 600 mg-5 mcg (200 unit) (Calcium 600 + D(3)) 1 tab PO DAILY glucosamine-chondroitin 500-400 mg 1 cap PO DAILY hydrochlorothiazide 50 mg PO DAILY lactobacillus combination no.4 (Probiotic) 3,000 mmu cells PO DAILY multivitamin 1 tab PO DAILY nabumetone 750 mg PO BID omeprazole 20 mg PO DAILY Synthroid (levothyroxine) 175 mcg PO DAILY NS Tobacco use date assessed: 08/04/24 Dental Screening Dental Screen Date: 08/04/24 Did you have a dental visit in the last 12 months?: Yes Did you have a dental problem in the last 6 months where you did not have access to dental care?: No Was dental information given to patient?: Patient has dentist HPI foot injury HPI Details The patient is a 49-year-old female presenting with swelling of the left foot and associated pain. The swelling began approximately two to three weeks ago, with the patient unable to recall any specific injury or trauma to the area. The patient reports that the swelling can increase depending on the type of shoes worn and tends to subside overnight. The patient experiences pain primarily when pressure is applied to the foot in certain positions, although there is no pain on direct palpation. The pain is described as intermittent and can sometimes throb at night. The patient has a history of arthritis and is currently on anti-inflammatory medication, which she feels is not effective. She denies any history of gout. [facility] Medical History Left foot pain Cough Obesity (BMI 30.0-34.9) Annual physical exam Pelvic pain Hyperlipidemia LDL goal <100 Mild hypercholesterolemia History of mammogram (~09/20/23) History of thyroid nodule Chronic lymphocytic thyroiditis Chronic neck pain Left-sided low back pain without sciatica Hypothyroidism Diverticulitis Anxiety Depression Arthritis Hiatal hernia GERD (gastroesophageal reflux disease) HTN (hypertension) TIA (transient ischemic attack) Surgical History History of colonoscopy (~04/05/24) Hx of resection of large bowel History of partial hysterectomy History of esophagogastroduodenoscopy (EGD) (~04/05/24) Family History Paternal Aunt Breast cancer Father Emphysema lung Mother High blood pressure Rheumatoid arthritis Osteoarthritis Atrial fibrillation Social History Housing: House Are you a primary home health care coordinator to a significant other at home: No Do you presently have visiting nurse or other home services: No Alcohol intake: current Alcohol intake frequency: holidays/special occasions only Patient Tobacco Use Status: Never used Tobacco service: No Current occupational status: employed Cognitive needs: No Hearing needs: No Vision needs: No Female Reproductive History Menstrual Age of Menarche: 12 Questionnaire PHQ-9 Over the last 2 weeks, how often have you been bothered by any of the following problems? 1. Little interest or pleasure in doing things: not at all 2. Feeling down, depressed, or hopeless: not at all 3. Trouble falling or staying asleep, or sleeping too much: not at all 4. Feeling tired or having little energy: not at all 5. Poor appetite or overeating: not at all 6. Feeling bad about yourself - or that you are a failure or have let yourself or your family down: not at all 7. Trouble concentrating on things, such as reading the newspaper or watching television: not at all 8. Moving or speaking so slowly that other people could have noticed. Or the opposite - being so fidgety or restless that you have been moving around a lot more than usual: not at all 9. Thoughts that you would be better off or of hurting yourself in some way: not at all Total score: 0 Depression Screening Interpretation: Negative Depression Screening Done: Yes 07263 - PHQ-9 Billing: Yes Source: Developed by Drs. Benny Dunham, Amie Cummings, Brian Gilliam and colleagues, with an educational willa from [employer]. Thrive Questionnaire Date Thrive assessed: 01/05/25 I am a: Patient What is your living situation today?: I have a steady place to live Within the past 12 months, did the food you bought not last and you didn't have the money to get more?: Never true Within the past 12 months, did you worry whether your food would run out before you got money to buy more?: Never true Do you have trouble paying for medicines?: No Do you have trouble getting transportation to medical appointments?: No Do you have trouble paying your heating and electricity bill?: No Do you have trouble taking care of your child, family member or friend?: No Do you have trouble with day-to-day activities such as bathing, preparing meals, shopping, managing finances, etc.?: No Are you currently unemployed and looking for a job?: No Are you interested in more education?: No Please select the resources that you would like help with: None Currently or been in a relationship where the following occur: No concerns reported THRIVE Score: 0 AUDIT C Alcohol Use Questionnaire (AUDIT-C) 1. How often do you have a drink containing alcohol?: Monthly or less 2. How many drinks containing alcohol do you have on a typical day when you are drinking?: 1 or 2 3. How often do you have six or more drinks on one occasion?: Never Total Score: 1 Score Reviewed/Action Taken: No SAL-7 AMB Questionnaire SAL-7 Date SAL - 7 assessed: 08/04/24 Feeling nervous, anxious, or on edge: 0 = Not at all Not being able to stop or control worryin = Not at all Worrying too much about different things: 0 = Not at all Trouble relaxin = Not at all Being so restless that it is hard to sit still: 0 = Not at all Becoming easily annoyed or irritable: 0 = Not at all Feeling afraid as if something awful might happen: 0 = Not at all Total SAL-7 score (0-4 normal; 5-9 mild; 10-14 moderate; 15-21 severe): 0 Source: Developed by Drs. Benny Dunham, Amie Cummings, Brian Gilliam and colleagues, with an educational willa from [employer]. SAL-7 Assessment Billing SAL-7 Assessment Tool: SAL-7 Assessment 27902 Review of Systems Const Details: - Musculoskeletal: Reports swelling and pain in the foot, denies history of gout. All systems reviewed & are unremarkable except as noted in HPI and below Physical exam (Primary Care) Vital Signs: Last Vital Signs Temp 98 F 01/05/25 11:25 Pulse 83 01/05/25 11:25 Resp 16 01/05/25 11:25 BP 126/74 01/05/25 11:25 Pulse Ox 96 01/05/25 11:25 Oxygen Delivery Method Room Air 01/05/25 11:25 Care Plan Goal for BP management: <140/90 at Goal BMI result Body Mass Index 28.9 BMI Assessment/Plan discussion: High BMI High, discussed plan: lifestyle, weight reduction, dietary, physical activity and alcohol moderation Tobacco/Smoking Status: Tobacco use Status Tobacco use date assessed 08/04/24 01/05/25 11:28 Patient Tobacco Use Status Never used Tobacco 01/05/25 11:39 PHQ-9: PHQ-9 Score PHQ-9: Total score 0 01/05/25 11:39 Depression Screening Interpretation: Negative Thrive Assessment: Date of Thrive Assessment Date Thrive assessed 01/05/25 01/05/25 11:28 Currently or been in a relationship where the following occur: No concerns reported Const Other: Appearance: Alert. Oriented X3. No acute distress. Head: Normal external exam. Normocephalic. Atraumatic. Eyes: Pupils are equal, round, and reactive to light. Extraocular movements intact. Conjunctiva and sclera normal. Eyelids normal. Throat: Pharynx normal. Uvula midline. Moist mucous membranes. Neck: Normal inspection. Neck supple. Full range of motion. Cardiovascular: Normal heart rate and rhythm. Respiratory: No respiratory distress. Painless inspiration. Back: Full range of motion noted. Skin: Skin warm and dry. Normal skin color. Normal skin turgor. No rashes/lesions/lacerations noted. Extremities: Swelling noted in the left foot and ankle area proximal aspect dorsal aspect. Pain reported under the foot, especially when pressure is applied or when reaching for something. No lower extremity edema. Extremities exhibit normal range of motion. Extremities nontender except for the noted area of the left foot. Coding Level of Care Code Est Pt Level 4 (09956) Complex EM visit Add On G2211 Diagnoses Left foot pain M79.672 Additional Codes PHQ-9 - 95586 - PHQ-9 Billing: Yes ([id number]) SAL-7 Assessment Billing - SAL-7 Assessment Tool: SAL-7 Assessment 86971 ([id number]) Assessment & Plan Assessment & Plan (1) Left foot pain: Code(s): M79.672 - Pain in left foot Category: Medical Plan: An x-ray of the left foot is planned to rule out any fractures or structural abnormalities. The patient is advised to continue with anti-inflammatory medication and start a course of prednisone for five days to manage inflammation. Plan Plan Patient was informed and verbally consented to the use of an ambient scribe for clinic note documentation during this visit. 1. Swelling Of The Foot An x-ray of the left foot is planned to rule out any fractures or structural abnormalities. The patient is advised to continue with anti-inflammatory medication and start a course of prednisone for five days to manage inflammation. 2. Possible Plantar Fasciitis The symptoms are suggestive of plantar fasciitis, although the patient reports that the pain does not feel the same as previous episodes. An x-ray is planned to further evaluate the condition. 3. Arthritis The patient is currently on anti-inflammatory medication for arthritis, but reports it is not effective. A trial of prednisone is suggested to manage the current symptoms. We discussed the possibility of plantar fasciitis and the need for an x-ray to rule out fractures or other structural issues. I recommended continuing the current anti-inflammatory medication and starting prednisone for inflammation management. The patient was informed about the option to see an security systems specialist if the x-ray shows any abnormalities. Orders: Orders XR foot LT min 3V Today M79.672 - Pain in left foot Medications: New prednisone 40 mg (2 x 20 mg) PO DAILY 10 tabs 0RF 5 days Patient Instructions: - Continue taking your current anti-inflammatory medication as prescribed. - Start the prescribed course of prednisone for five days. - Get an x-ray of your left foot at your earliest convenience. - Follow up with the clinic if symptoms persist or worsen.
--- OUTSIDE RECORDS SUMMARY | 2025-01-05 12:25 | XMS_ITS | Encounter Summary ---
Author Organization [facility] Address [address] [place] [id number] Phone Care Team Providers Care Tinning Machine Set Up Operator Name Role Phone Benny Delgado DO Primary Care Provider [phone] Encounter Details Date Type Department Care Team (Late st Contact Info) Description 07/15/2019 Procedure Pass OR Admitting Dept - Virtual Department [address] [place] [address] Social History Tobacco Use Types Packs/Day Years Used Date Smoking Tobacco: Never Smokeless Tobacco: Never Alcohol Use Standard Drinks/Week Comments Yes 0 (1 standard drink = 0.6 oz pur e alcohol) occ Comments No Sex and Gender Information Value Date Recorded Sex Assigned at Not on file Legal Sex Female 9:30 PM EDT Gender Identity Not on file Sexual Orientation Not on file 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 It is not the complete legal health record.[facility]
== END 2025-01-05 11:52 | disposition home or self-care (01) ==
LOC: HO.HMCSH 11:24
PROVIDERS: PCP Internal Medicine; Visit Provider Physician Assistant Medical
DX: M79.672 Pain in left foot (principal)

== ENCOUNTER 2025-01-05 11:24 | Outpatient (REF) | payer BC, SELFPAY ==
--- NOTE | ~2025-01-05 | XR_ITS ---
EXAMINATION: XR FOOT, LEFT CLINICAL INFORMATION: M79.672 - Pain in left foot COMPARISON: None available. TECHNIQUE: AP, lateral, and oblique views of the left foot. FINDINGS: There is hallux valgus deformity. There is a small calcaneal plantar spur. No other abnormalities. XR/XR foot LT min 3V IMPRESSION: Hallux valgus deformity. Small calcaneal spur. Electronically signed by: Hernando Mulligan MD 01/05/2025 04:30 PM EDT
== END 2025-01-05 11:25 | disposition home or self-care (01) ==
LOC: HO.HMGCX 11:24
PROVIDERS: PCP Internal Medicine; Visit Provider Physician Assistant Medical
DX: M79.672 Pain in left foot (principal); M19.90 Unspecified osteoarthritis, unspecified site; Z13.31 Encounter for screening for depression
CPT/HCPCS: 73630; 96127

== ENCOUNTER → 2025-01-05 16:07 | Outpatient (BNV) | payer BC, SELFPAY | PROVIDERS: PCP Internal Medicine; Visit Provider Radiology Diagnostic Radiology | DX: M79.672 Pain in left foot (principal) | CPT/HCPCS: 73630 ==

== ENCOUNTER 2025-02-02 09:06 | Outpatient (AMB) | payer BC, SELFPAY ==
--- NOTE | 2025-02-02 09:03 | MHC.PC.OV ---
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 Required: No Accompanied by: Self / Same As Patient Allergies No Known Allergies (No Known Allergies*) Allergy (Verified 02/02/25 11:34) Medication List - Last Reconciled 02/02/25 by Marlen Shah PA-C aspirin 81 mg PO DAILY bupropion HCl XL 300 mg PO DAILY calcium carbonate-vitamin D3 600 mg-5 mcg (200 unit) (Calcium 600 + D(3)) 1 tab PO DAILY glucosamine-chondroitin 500-400 mg 1 cap PO DAILY hydrochlorothiazide 50 mg PO DAILY lactobacillus combination no.4 (Probiotic) 3,000 mmu cells PO DAILY multivitamin 1 tab PO DAILY nabumetone 750 mg PO BID omeprazole 20 mg PO DAILY prednisone 40 mg (2 x 20 mg) PO DAILY 5 days Synthroid (levothyroxine) 175 mcg PO DAILY NS tirzepatide (weight loss) (Zepbound) 2.5 mg (0.5 mL) subcut QWEEK Tobacco use date assessed: 08/04/24 Dental Screening Dental Screen Date: 08/04/24 Did you have a dental visit in the last 12 months?: Yes Did you have a dental problem in the last 6 months where you did not have access to dental care?: No Was dental information given to patient?: Patient has dentist HPI 6 month f/u - see comments HPI Details The patient is a 49-year-old female presenting with a six-month follow-up visit. She reports persistent left foot pain, with pain radiating down the front and side of the foot, sometimes feeling like a popping sensation. May be related to varicose veins. The patient has a history of ankle arthritis, leading to swelling, especially after prolonged sitting due to her sedentary job. She is managing obesity, with guidance from a employee placement specialist, and reports a weight loss attributed to clothing differences rather than actual weight reduction. She reports she improve her diet. She is walking daily while she is at work to get some exercise. Hyperlipidemia is being monitored, and she is considering a weight loss medication pending insurance approval. The patient is prediabetic with an A1c of 5.8% and has a family history of diabetes, prompting dietary modifications to manage blood sugar levels. 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 - Exercise: Attempts to increase physical activity despite foot pain - Nutrition: Working with a employee placement specialist, focusing on increasing vegetables and protein intake [facility] Medical History (Updated 02/02/25 @ 11:50 by Marlen Shah PA-C) Pre-diabetes Ankle arthritis Vascular insufficiency Left foot pain Cough Obesity (BMI 30.0-34.9) Annual physical exam Pelvic pain Hyperlipidemia LDL goal <100 Mild hypercholesterolemia History of mammogram (~09/20/23) History of thyroid nodule Chronic lymphocytic thyroiditis Chronic neck pain Left-sided low back pain without sciatica Hypothyroidism Diverticulitis Anxiety Depression Arthritis Hiatal hernia GERD (gastroesophageal reflux disease) HTN (hypertension) TIA (transient ischemic attack) Surgical History History of colonoscopy (~04/05/24) Hx of resection of large bowel History of partial hysterectomy History of esophagogastroduodenoscopy (EGD) (~04/05/24) Family History Paternal Aunt Breast cancer Father Emphysema lung Mother High blood pressure Rheumatoid arthritis Osteoarthritis Atrial fibrillation Social History Housing: House Are you a primary care advocate to a significant other at home: No Do you presently have visiting nurse or other home services: No Alcohol intake: current Alcohol intake frequency: holidays/special occasions only Patient Tobacco Use Status: Never used Tobacco service: No Current occupational status: employed Cognitive needs: No Hearing needs: No Vision needs: No Female Reproductive History Menstrual Age of Menarche: 12 Questionnaire PHQ-9 Over the last 2 weeks, how often have you been bothered by any of the following problems? 1. Little interest or pleasure in doing things: not at all 2. Feeling down, depressed, or hopeless: not at all 3. Trouble falling or staying asleep, or sleeping too much: not at all 4. Feeling tired or having little energy: not at all 5. Poor appetite or overeating: not at all 6. Feeling bad about yourself - or that you are a failure or have let yourself or your family down: not at all 7. Trouble concentrating on things, such as reading the newspaper or watching television: not at all 8. Moving or speaking so slowly that other people could have noticed. Or the opposite - being so fidgety or restless that you have been moving around a lot more than usual: not at all 9. Thoughts that you would be better off or of hurting yourself in some way: not at all Total score: 0 Depression Screening Interpretation: Negative Depression Screening Done: Yes 32709 - PHQ-9 Billing: Yes Source: Developed by Drs. Benny Dunham, Amie Cummings, Brian Gilliam and colleagues, with an educational willa from [employer]. Thrive Questionnaire Date Thrive assessed: 01/05/25 I am a: Patient What is your living situation today?: I have a steady place to live Within the past 12 months, did the food you bought not last and you didn't have the money to get more?: Never true Within the past 12 months, did you worry whether your food would run out before you got money to buy more?: Never true Do you have trouble paying for medicines?: No Do you have trouble getting transportation to medical appointments?: No Do you have trouble paying your heating and electricity bill?: No Do you have trouble taking care of your child, family member or friend?: No Do you have trouble with day-to-day activities such as bathing, preparing meals, shopping, managing finances, etc.?: No Are you currently unemployed and looking for a job?: No Are you interested in more education?: No Please select the resources that you would like help with: None Currently or been in a relationship where the following occur: No concerns reported THRIVE Score: 0 AUDIT C Alcohol Use Questionnaire (AUDIT-C) 1. How often do you have a drink containing alcohol?: Monthly or less 2. How many drinks containing alcohol do you have on a typical day when you are drinking?: 1 or 2 3. How often do you have six or more drinks on one occasion?: Never Total Score: 1 Score Reviewed/Action Taken: No SAL-7 AMB Questionnaire SAL-7 Date SAL - 7 assessed: 08/04/24 Feeling nervous, anxious, or on edge: 0 = Not at all Not being able to stop or control worryin = Not at all Worrying too much about different things: 0 = Not at all Trouble relaxin = Not at all Being so restless that it is hard to sit still: 0 = Not at all Becoming easily annoyed or irritable: 0 = Not at all Feeling afraid as if something awful might happen: 0 = Not at all Total SAL-7 score (0-4 normal; 5-9 mild; 10-14 moderate; 15-21 severe): 0 Source: Developed by Drs. Benny Dunham, Amie Cummings, Brian Gilliam and colleagues, with an educational iwlla from [employer]. SAL-7 Assessment Billing SAL-7 Assessment Tool: SAL-7 Assessment 25381 Review of Systems Const Details: - Musculoskeletal: Reports foot pain, swelling in ankles, and arthritis - Cardiovascular: Denies chest pain or palpitations - Respiratory: Denies dyspnea or cough - Gastrointestinal: Denies abdominal pain, reports normal bowel movements - Genitourinary: Denies dysuria or urinary frequency All systems reviewed & are unremarkable except as noted in HPI and below Physical exam (Primary Care) Vital Signs: Last Vital Signs Temp 97.9 F 02/02/25 09:04 Pulse 75 02/02/25 09:04 Resp 16 02/02/25 09:04 BP 112/63 02/02/25 09:04 Pulse Ox 97 02/02/25 09:04 Oxygen Delivery Method Room Air 02/02/25 09:04 Care Plan Goal for BP management: <140/90 at Goal BMI result Body Mass Index 29.6 BMI Assessment/Plan discussion: High BMI High, discussed plan: lifestyle, weight reduction, dietary, physical activity, alcohol moderation and other Tobacco/Smoking Status: Tobacco use Status Tobacco use date assessed 08/04/24 02/02/25 09:06 Patient Tobacco Use Status Never used Tobacco 02/02/25 09:06 PHQ-9: PHQ-9 Score PHQ-9: Total score 0 02/02/25 10:10 Depression Screening Interpretation: Negative Thrive Assessment: Date of Thrive Assessment Date Thrive assessed 01/05/25 02/02/25 09:06 Currently or been in a relationship where the following occur: No concerns reported Const Other: Appearance: Alert. Oriented X3. No acute distress. Head: Normal external exam. Normocephalic. Atraumatic. Eyes: Pupils are equal, round, and reactive to light. Extraocular movements intact. Conjunctiva and sclera normal. Eyelids normal. Ears: External auditory canal normal. Tympanic membranes normal. Throat: Pharynx normal. Uvula midline. Moist mucous membranes. Neck: Normal inspection. Neck supple. Full range of motion. Cardiovascular: Normal heart rate and rhythm. Heart sound normal. No murmurs noted. Pulses normal throughout. Respiratory: No respiratory distress. Painless inspiration. Breath sounds normal. No wheezes/rales/rhonchi noted. Chest nontender. No accessory muscle usage noted or decreased air movement noted. Abdomen: Soft and nontender. No distention noted. No organomegaly noted. Back: Full range of motion noted. Skin: Skin warm and dry. Normal skin color. Normal skin turgor. No rashes/lesions/lacerations noted. Extremities: No LE Edema. No calf tenderness. History of ankle injuries and arthritis. Extremities exhibit normal range of motion. Extremities nontender. Neuro: Oriented X 3. No motor deficit. No sensory deficit. Reflexes normal. Results AMB Hemoglobin A1c AMB Hemoglobin A1c 5.8 % Last Edit by SEN Marrufo on 02/02/25 10:10 Results Reviewed Results Reviewed: Laboratory Last Values Hgb A1c (Clinic) 5.8 % (4.0-6.0) 02/02/25 10:10 - Labs: A1c 5.8%, indicating prediabetes Coding Level of Care Code Est Pt Level 4 (04108) Complex EM visit Add On G2211 Diagnoses Left foot pain M79.672 Vascular insufficiency I99.8 Ankle arthritis M19.079 Obesity (BMI 30.0-34.9) E66.811 Hyperlipidemia LDL goal <100 E78.5 Mild hypercholesterolemia E78.00 Pre-diabetes R73.03 HTN (hypertension) I10 Additional Codes SAL-7 Assessment Billing - SAL-7 Assessment Tool: SAL-7 Assessment 71870 ([id number]) PHQ-9 - 79225 - PHQ-9 Billing: Yes ([id number]) Assessment & Plan Assessment & Plan (1) Left foot pain: Code(s): M79.672 - Pain in left foot Category: Medical Plan: The patient reports persistent foot pain, with pain radiating down the front and side of the foot. A referral to a edger feeder or consideration of supportive footwear may be beneficial. (2) Vascular insufficiency: Code(s): I99.8 - Other disorder of circulatory system Category: Medical Plan: The patient experiences swelling in both ankles, possibly due to vascular insufficiency, exacerbated by prolonged sitting. Referral to a vascular surgeon for further evaluation and management was discussed. (3) Ankle arthritis: Code(s): M19.079 - Primary osteoarthritis, unspecified ankle and foot Category: Medical Plan: The patient has a history of ankle arthritis, contributing to swelling and discomfort, particularly after prolonged periods of inactivity. Management includes elevation of the legs and use of supportive braces as needed. (4) Obesity (BMI 30.0-34.9): Comment: Now overweight with bmi at 29 Code(s): E66.811 - Obesity, class 1 Category: Medical Plan: The patient is managing obesity with dietary modifications and increased physical activity. Consideration of a weight loss medication was discussed, pending insurance approval. (5) Hyperlipidemia LDL goal <100: Code(s): E78.5 - Hyperlipidemia, unspecified Category: Medical Plan: The patient is being monitored for hyperlipidemia, with dietary adjustments recommended to manage cholesterol levels. (6) Mild hypercholesterolemia: Code(s): E78.00 - Pure hypercholesterolemia, unspecified Category: Medical Plan: The patient is being monitored for hyperlipidemia, with dietary adjustments recommended to manage cholesterol levels. (7) Pre-diabetes: Code(s): R73.03 - Prediabetes Category: Medical Plan: The patient has been identified as prediabetic with an A1c of 5.8%. Dietary modifications to reduce sugar intake and regular monitoring of blood glucose levels were advised. (8) HTN (hypertension): Code(s): I10 - Essential (primary) hypertension Category: Medical Plan: Patient is on HCTZ 50 mg daily, BP controlled. Condition is chronic and stable continue to monitor. Plan Plan Patient was informed and verbally consented to the use of an ambient scribe for clinic note documentation during this visit. 1. Left Foot Pain The patient reports persistent foot pain, with pain radiating down the front and side of the foot. A referral to a edger feeder or consideration of supportive footwear may be beneficial. 2. Vascular Insufficiency The patient experiences swelling in both ankles, possibly due to vascular insufficiency, exacerbated by prolonged sitting. Referral to a vascular surgeon for further evaluation and management was discussed. 3. Ankle Arthritis The patient has a history of ankle arthritis, contributing to swelling and discomfort, particularly after prolonged periods of inactivity. Management includes elevation of the legs and use of supportive braces as needed. 4. Obesity The patient is managing obesity with dietary modifications and increased physical activity. Consideration of a weight loss medication was discussed, pending insurance approval. 5. Hyperlipidemia The patient is being monitored for hyperlipidemia, with dietary adjustments recommended to manage cholesterol levels. 6. Prediabetes The patient has been identified as prediabetic with an A1c of 5.8%. Dietary modifications to reduce sugar intake and regular monitoring of blood glucose levels were advised. During the visit, we discussed the patient's ongoing foot pain, likely due to plantar fasciitis, and the potential need for a edger feeder referral. We also considered the possibility of vascular insufficiency contributing to her symptoms and discussed a referral to a vascular surgeon. The patient's obesity and hyperlipidemia were addressed, with dietary modifications and the potential use of a weight loss medication pending insurance approval. We reviewed her prediabetic status and emphasized the importance of dietary changes to manage her blood sugar levels. Orders: Orders AMB Hemoglobin A1c Today Z13.9 - Encounter for screening, unspecified Medications: New tirzepatide (weight loss) (Zepbound) for 4 weeks 2.5 mg (0.5 mL) subcut QWEEK 2 mL 0RF E66.811 - Obesity, class 1, E78.00 - Pure hypercholesterolemia, unspecified, E78.5 - Hyperlipidemia, unspecified Patient Instructions: - Follow up with a edger feeder for foot pain management. - Consider seeing a vascular surgeon for evaluation of ankle swelling. - Elevate legs when sitting to reduce swelling. - Continue working with a employee placement specialist to improve dietary habits. - Monitor blood glucose levels regularly and follow dietary recommendations to manage prediabetes. - Schedule a follow-up appointment in May for a physical and blood work.
[2025-02-02 09:04] VITALS: BP 112/63; PULSE 75; RESP 16; TEMP 36.6; O2SAT 97; BMI 29.6
--- OUTSIDE RECORDS SUMMARY | 2025-02-02 09:31 | XMS_ITS | Encounter Summary ---
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 It is not the complete legal health record.[facility]
--- OUTSIDE RECORDS SUMMARY | 2025-02-02 09:31 | XMS_ITS | Encounter Summary ---
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 It is not the complete legal health record.[facility]
--- OUTSIDE RECORDS SUMMARY | 2025-02-02 09:31 | XMS_ITS | Clinical Summary ---
Author Organization [facility] Address [address] [address] Phone Care Team Providers Care Soil Tester Name Role Phone Danny Benny Giovanni DE GUZMAN Primary Care Provider Allergies No known active allergies Medications hydroCHLOROthia zide (HYDRODIURIL) 50 MG tablet Take 50 mg by mouth daily. Active aspirin 81 MG EC tablet Take 81 mg by mouth daily. Active multivitamin per tablet Take 1 tablet by mouth daily. Active acetaminophen (TYLENOL) 325 mg tablet Take 2 tablets (650 mg total) by mouth every 6 (six) hours as needed for mild pain. 10/08/2018 Active ibuprofen (ADVIL,MOTRIN) 200 MG tablet Take 3 tablets (600 mg total) by mouth every 6 (six) hours as needed for pain (specific location in comments). 10/08/2018 Active buPROPion (WELLBUTRIN XL) 300 MG ER 24 hr tablet Take 300 mg by mouth daily. 05/18/2019 Active glucosamine sulfate (GLUCOSAMINE ORAL) Take by mouth. Active bacillus coagulans-inuli n 1 billion-250 cell-mg Cap Take 250 mg by mouth daily. Active levothyroxine (SYNTHROID) 175 MCG tablet Take 175 mcg by mouth every morning. Active Active Problems No known active problems Resolved Problems Problem Noted Date Diagnosed Date Resolved Date Menometrorrhagia 07/15/2019 07/16/2019 Overview (07/16/2019): Had TLH with bilateral salpingectomy 07/15/2019 Menorrhagia with regular cycle 08/25/2018 07/16/2019 Overview (07/16/2019): Had TLH with bilateral salpingectomy 07/15/2019 Assessment & Plan (07/15/2019 11:24 AM EST): TLH with bilateral salpingectomy performed 07/15/2019 Assessment & Plan (08/25/2018 4:28 PM EDT): Treatment options reviewed with patient and her . These options are including but not limited to oral contraceptives, other alternative hormonal contraceptives, Mirena IUD, endometrial ablation. Patient is undecided but is considering ablation at this time. If she decides on IUD she will call with the onset of her next period to schedule insertion. Either way, patient will call with her decision. Information provided. Immunizations Immunization Administration Dates Next Due INFLUENZA, SPLIT VIRUS, TRIVALENT PF 03/06/2016 Influenza Quadrivalent w/ Preservative IM 2018,04/07/2017 Family History Medical History Relation Comments COPD Father age 73 Depression Mother Hypertension Mother Migraines Mother Osteoporosis Mother Relation Status Comments Brother 1 Alive Brother 2 Alive Father (Age 74) Mother Alive Sister 1 Alive Sister 2 Alive Sister 3 Alive Social History Tobacco Use Types Packs/Day Years Used Date Smoking Tobacco: Never Smokeless Tobacco: Never Alcohol Use Standard Drinks/Week Comments Yes 0 (1 standard drink = 0.6 oz pur e alcohol) occ Education Answer Date Recorded Are you interested in more education? Not on marilia e 10/04/2022 Are you concerned about learning? Not on file 10/04/2022 No 10/04/2022 No 10/04/2022 Digital Access Answer Date Recorded No 11/01/2022 No 11/01/2022 No 11/01/2022 Reliable internet access at home? Not on file 11/01/2022 Device with a working camera? 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 [employer] Not on file Not on file Not o n file Last Filed Vital Signs Vital Sign Reading Time Taken Comments Blood Pressure 126/78 08/10/2019 10:45 AM EST Pulse 92 07/16/2019 9:00 AM EST Temperature 36.8 C (98.2 F) 07/16/2019 9:00 AM EST Respiratory Rate 18 07/16/2019 9:00 AM EST Oxygen Saturation 94% 07/16/2019 9:00 AM EST Inhaled Oxygen Concentration - - Weight 84.4 kg (186 lb) 07/08/2019 10:43 AM EST Height 168.9 cm (5' 6.5 ) 07/08/2019 10:43 AM ES T Body Mass Index 29.57 07/08/2019 10:43 AM EST Plan of Treatment Health Maintenance Due Date Last Done Comments Adult Td,Tdap Booster 1974 LIPID PANEL 1974 POTASSIUM LEVEL 1974 TSH LEVEL 1974 DEPRESSION SCREENING 1986 HEPATITIS C SCREENING 1992 HIV ONE-TIME SCREENING (18-6 5 YEARS) 1992 MAMMOGRAM 2014 COLOGUARD 2019 COLONOSCOPY 2019 COLORECTAL CANCER SCREENING 2019 FIT TEST 2019 FOBT 2019 SIGMOIDOSCOPY 2019 VIRTUAL COLONOSCOPY 2019 COVID-19 VACCINE (3 - 2023-2 5 season) 2024 02/05/2021, 01/15/2021 PNEUMOCOCCAL VACCINES (50+ years) (1 of 1 - PCV) 2024 ZOSTER VACCINES (1 of 2) 2024 SMOKING STATUS SCREENING (On ce After 26 Yrs) Completed 10/28/2018 HEPATITIS A VACCINES Aged Out No long er eligible based on patient's age to complete this topic HIB VACCINES Aged Out No longer eligi ble based on patient's age to complete this topic MENINGOCOCCAL VACCINES (ACWY) Aged Out No longer eligible based on patient's age to complete this topic MENINGOCOCCAL VACCINES (B) Aged Out N o longer eligible based on patient's age to complete this topic Medical Devices Not on file Insurance [facility] Member Subscriber Plan / Payer (Ef fective 2017-Present) Name:Crystal Lai Relation to Subscriber:Self Name:Crystal Lai Payer ID:Not on file Type:HMO Address: [place] [id number] Address: [place] [address] Advance Directives For more information, please contact: [phone] (9AM - 5PM [facility], Friday-Friday) Documents on File Type Date Recorded 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 10/12/2018 11:48 AM * Full Code (Presumed) (Latest Code Status on File) Date Activated Date Inactivated Comments 07/15/2019 1:54 PM 07/16/2019 1:55 PM * Full Code (Presumed) Date Activated Date Inactivated Comments 07/15/2019 7:57 AM 07/15/2019 1:54 PM * Full Code (Presumed) Date Activated Date Inactivated Comments 10/08/2018 7:38 AM 10/08/2018 3:01 PM Care Teams Soil Tester Relationship Specialty Start Date End Date Benny Delgado DO [address] [place] [id number] PCP - General Internal Medicine 09/25/18 Additional Source Comments The information contained in this document represents components of the legal health record. It is not the complete legal health record.[facility]
== END 2025-02-02 09:48 | disposition home or self-care (01) ==
LOC: HO.HMCSH 09:06
PROVIDERS: PCP Internal Medicine; Visit Provider Physician Assistant Medical
DX: M79.672 Pain in left foot (principal); I99.8 Other disorder of circulatory system; M19.079 Primary osteoarthritis, unspecified ankle and foot; E66.811 Obesity, class 1; E78.5 Hyperlipidemia, unspecified; E78.00 Pure hypercholesterolemia, unspecified; R73.03 Prediabetes; I10 Essential (primary) hypertension; Z13.9 Encounter for screening, unspecified

== ENCOUNTER → 2025-02-02 09:06 | Outpatient (BNVA) | payer BC, SELFPAY | PROVIDERS: PCP Internal Medicine; Visit Provider Physician Assistant Medical | DX: M19.072 Primary osteoarthritis, left ankle and foot (principal); I99.8 Other disorder of circulatory system; R73.03 Prediabetes; M19.079 Primary osteoarthritis, unspecified ankle and foot; E66.811 Obesity, class 1; E78.00 Pure hypercholesterolemia, unspecified; I10 Essential (primary) hypertension; Z68.29 Body mass index [BMI] 29.0-29.9, adult | CPT/HCPCS: 83036; 96127 ==

== ENCOUNTER 2025-03-24 09:34 | Outpatient (AMB) | payer BC, SELFPAY ==
[2025-03-24 09:39] VITALS: BMI 29.3
--- NOTE | 2025-03-24 09:39 | A.OFFVIS_ITS ---
VS Expanded 03/24/25 09:39 Height 5 ft 6.7 in Weight 185 lb 10.067 oz BMI 29.3 Intake Visit Reasons: Obesity Allergies No Known Allergies (No Known Allergies*) Allergy (Verified 02/02/25 11:34) Nutrition Presentation Details: Pt presents for MNT f/u for obesity, pre dm Last nutr appt in 10/2024 Pt reports doing well, concerns d/t no changes in weight however having better GI health with improved BM since including more fruits/veg (no diarrhea or constipation) PFSH Medical History (Updated 02/02/25 @ 11:50 by Marlen Shah PA-C) Pre-diabetes Ankle arthritis Vascular insufficiency Left foot pain Cough Obesity (BMI 30.0-34.9) Annual physical exam Pelvic pain Hyperlipidemia LDL goal <100 Mild hypercholesterolemia History of mammogram (~09/20/23) History of thyroid nodule Chronic lymphocytic thyroiditis Chronic neck pain Left-sided low back pain without sciatica Hypothyroidism Diverticulitis Anxiety Depression Arthritis Hiatal hernia GERD (gastroesophageal reflux disease) HTN (hypertension) TIA (transient ischemic attack) Surgical History History of colonoscopy (~04/05/24) Hx of resection of large bowel History of partial hysterectomy History of esophagogastroduodenoscopy (EGD) (~04/05/24) Family History Paternal Aunt Breast cancer Father Emphysema lung Mother High blood pressure Rheumatoid arthritis Osteoarthritis Atrial fibrillation Social History Housing: House Are you a primary care coordinator to a significant other at home: No Do you presently have visiting nurse or other home services: No Alcohol intake: current Alcohol intake frequency: holidays/special occasions only Patient Tobacco Use Status: Never used Tobacco service: No Current occupational status: employed Cognitive needs: No Hearing needs: No Vision needs: No Female Reproductive History Menstrual Age of Menarche: 12 Assessment & Plan Assessment & Plan (1) Obesity (BMI 30.0-34.9): Comment: Now overweight with bmi at 29 Code(s): E66.811 - Obesity, class 1 Category: Medical Plan: Wt: 84 Kg ( 08/31 ), 82 kg (10/31), 84 kg (04/02) Est kcal needs as per MSJ: 2100 (40% carb, 30% protein/fat) Est fluid needs as per 25-30 ml/d: 2500 Est prot per day as per 1 g/kg bw: 84 Recommend fiber intake : 8-10 g per day and gradually increase to 25-28 g per day for women and 35-38 g for men or as tolerated Recommend sodium intake per day : less than 2000 mg Educated patient on: ( R = reviewed V = verbalizes understanding N/R = needs review N/A = not applicable * Food sources of carbohydrate, adequate serving sizes and its role in various health conditions: R * Differences between complex carbohydrates a simple carbohydrates, role of fiber in diet: R * Lean protein sources of foods: R * Differences between types of fats and role in diet (mono on saturated fat fatty acids, saturated fatty acids, trans fats): R * Food sources of sodium in salt and healthy modifications for heart health in kidney health: R V R/V * Vitamins and minerals: R * Healthy plate method concept: R * Physical activity: Benefits a precaution: R * Patient Instructions: Try a meal replacement once a day Keep track of your total caloric intake and gradually reduce calories (starting with empty calorie foods) to goal 0730-7362 calories /day Coding Level of Care Code Nutr Indiv Subseq (86349) Diagnoses Obesity (BMI 30.0-34.9) E66.811 Time Spent (min) 30
--- OUTSIDE RECORDS SUMMARY | 2025-03-24 11:00 | XMS_ITS | Encounter Summary ---
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 It is not the complete legal health record.[facility]
--- OUTSIDE RECORDS SUMMARY | 2025-03-24 11:00 | XMS_ITS | Encounter Summary ---
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 It is not the complete legal health record.[facility]
--- OUTSIDE RECORDS SUMMARY | 2025-03-24 11:00 | XMS_ITS | Clinical Summary ---
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 [employer] Not on file Not [...] HEPATITIS C SCREENING 1992 HIV ONE-TIME SCREENING (18-65 YEARS) 1992 MAMMOGRAM 2014 COLOGUARD 2019 COLONOSCOPY 2019 COLORECTAL CANCER SCREENING 2019 FIT TEST 2019 FOBT 2019 SIGMOIDOSCOPY 2019 VIRTUAL COLONOSCOPY 2019 PNEUMOCOCCAL VACCINES (50+ years) (1 of 1 - PCV) 2024 ZOSTER VACCINES (1 of 2) 2024 INFLUENZA VACCINE (#1) 2025 0, 04/23/2019, 04/07/2017, Additional history exists COVID-19 VACCINE (3 - 2024- season) 2025 02/05/2021, 01/15/2021 RSV VACCINE (1 - 1-dose 75+ series) 2049 SMOKING STATUS SCREENING (Once After 26 Yrs) Completed 10/28/2018 HEPATITIS A [...] topic Medical Devices Not on file Insurance [facility] [address] [place], [place] [address]O Advance Directives For more information, please contact: [phone] (9AM - 5PM [facility], Friday-Friday) Documents on File Type Date Recorded Patient Barrel Line Operator Expl anation Healthcare Proxy 10/12/2018 11:48 AM * Full Code (Presumed) (Latest Code Status on File) Date Activated Date Inactivated Comments 07/15/2019 1:54 PM 07/16/2019 1:55 PM * Full Code (Presumed) Date Activated Date Inactivated Comments 07/15/2019 7:57 AM 07/15/2019 1:54 PM * Full Code (Presumed) Date Activated Date Inactivated Comments 10/08/2018 7:38 AM 10/08/2018 3:01 PM Care Teams Truck Sales Manager Relationship Specialty Start Date End Date Benny Delgado DO [address] [place] [id number] PCP - General Internal Medicine 09/25/18 Additional Source Comments The information contained in this document represents components of the legal health record. It is not the complete legal health record.[facility]
== END 2025-03-24 10:09 | disposition home or self-care (01) ==
LOC: HO.ENCR 09:35
PROVIDERS: PCP Internal Medicine; Visit Provider Dietitian, Registered
DX: E66.811 Obesity, class 1 (principal)

== ENCOUNTER → 2025-03-24 09:34 | Outpatient (BNVA) | payer BC, SELFPAY | PROVIDERS: PCP Internal Medicine; Visit Provider Dietitian, Registered | DX: E66.811 Obesity, class 1 (principal); Z68.29 Body mass index [BMI] 29.0-29.9, adult; R73.03 Prediabetes | CPT/HCPCS: 97803 ==

== ENCOUNTER 2025-05-17 08:57 | Outpatient (AMB) | payer BC, SELFPAY ==
[2025-05-17 08:59] VITALS: BP 122/71; PULSE 84; RESP 14; TEMP 36.6; O2SAT 97; BMI 29.5
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
== END 2025-05-17 09:40 | disposition home or self-care (01) ==
PROVIDERS: PCP Physician Assistant Medical; Visit Provider Physician Assistant Medical
DX: M19.90 Unspecified osteoarthritis, unspecified site (principal); Z00.00 Encounter for general adult medical examination without abnormal findings; Z78.9 Other specified health status; E78.00 Pure hypercholesterolemia, unspecified; R73.03 Prediabetes

== ENCOUNTER 2025-05-17 08:57 | Outpatient (REF) | payer BC, SELFPAY ==
--- NOTE | ~2025-05-17 | XR_ITS ---
EXAMINATION: XR ANKLE, RIGHT CLINICAL INFORMATION: M25.561 - Pain in right knee COMPARISON: None available. TECHNIQUE: AP, lateral, and mortise views of the right ankle. FINDINGS: Bone alignment is normal. No fracture or dislocation. Normal ankle mortise. Small calcaneal spurs. Soft tissues otherwise normal. XR/XR ankle RT min 3V IMPRESSION: Normal right ankle. Small calcaneal spurs. Electronically signed by: Flory Martinez MD 05/17/2025 10:47 AM EST
--- NOTE | ~2025-05-17 | XR_ITS ---
EXAMINATION: XR HIP, RIGHT CLINICAL INFORMATION: M25.551 - Pain in right hip COMPARISON: Pelvis x-ray dated October 29, 2014 is not available on PACS TECHNIQUE: AP and oblique views of the right hip. FINDINGS: No acute fracture or dislocation. No lytic or blastic lesions. Sclerosis and degenerative changes in the symphysis pubis. No lytic or blastic lesions. Joint space is preserved. XR/XR knee RT 4V IMPRESSION: Degenerative changes in the symphysis pubis suggesting inflammatory changes. EXAMINATION: XR KNEE, RIGHT CLINICAL INFORMATION: M25.561 - Pain in right knee COMPARISON: None available. TECHNIQUE: AP lateral and sunrise views of the right knee. FINDINGS: No acute fracture or dislocation. Joint space narrowing involving medial lateral compartment with sclerosis along the articular surface. Small volume suprapatellar bursa joint effusion. No lytic or blastic lesions. No gross soft tissue calcifications. IMPRESSION: Bicompartmental osteoarthrosis/osteoarthritis. Small volume suprapatellar bursa joint effusion. Electronically signed by: Khalif Mccracken MD 05/17/2025 10:50 AM EST
--- NOTE | ~2025-05-17 | XR_ITS ---
EXAMINATION: XR HIP, RIGHT CLINICAL INFORMATION: M25.551 - Pain in right hip COMPARISON: Pelvis x-ray dated October 29, 2014 is not available on PACS TECHNIQUE: AP and oblique views of the right hip. FINDINGS: No acute fracture or dislocation. No lytic or blastic lesions. Sclerosis and degenerative changes in the symphysis pubis. No lytic or blastic lesions. Joint space is preserved. XR/XR hip RT w PEL1V IMPRESSION: Degenerative changes in the symphysis pubis suggesting inflammatory changes. EXAMINATION: XR KNEE, RIGHT CLINICAL INFORMATION: M25.561 - Pain in right knee COMPARISON: None available. TECHNIQUE: AP lateral and sunrise views of the right knee. FINDINGS: No acute fracture or dislocation. Joint space narrowing involving medial lateral compartment with sclerosis along the articular surface. Small volume suprapatellar bursa joint effusion. No lytic or blastic lesions. No gross soft tissue calcifications. IMPRESSION: Bicompartmental osteoarthrosis/osteoarthritis. Small volume suprapatellar bursa joint effusion. Electronically signed by: Khalif Mccracken MD 05/17/2025 10:50 AM EST
[2025-05-17 13:36] LABS: Appearance Urine Clear; Glucose Urine UA Negative (Negative); PH 7.0 (5.0-9.0); Specific Gravity - Urine 1.020 (1.005-1.025)
[2025-05-17 13:50] LABS: MANUAL DIFF FLAG NO
[2025-05-17 13:58] LABS: Hematocrit 46.1 % (37.0-47.0); Hemoglobin 14.9 g/dl (12.0-16.0); Imm Gran Abs Auto 0.01 X10*3/uL (0.00-0.03); Imm Gran Pct Auto 0.2 % (0.0-0.4); Lymphocytes Absolute Auto 1.0 X10*3/uL (1.2-4.9); Mean Corpuscular HGB Conc 32.3 g/dl (31.0-35.0); Mean Corpuscular Hemoglobin 29.5 pg (27.0-33.0); Mean Corpuscular Volume 91.3 fL (80.0-98.0); NRBC Abs Auto 0.000 X10*3/uL (0.0-0.012); NRBC Pct Auto 0.0 /100WBC (0.0-0.2); Platelet Count 351 X10*3/uL (160-400); Red Blood Count 5.05 X10*6/uL (4.20-5.50); White Blood Count 4.7 X10*3/uL (4.8-10.8)
[2025-05-17 14:55] LABS: Alanine Aminotransferase 30 U/L (0-31); Albumin Level 4.3 g/dL (3.5-5.0); Alkaline Phosphatase 84 U/L (39-117); Anion Gap 11 (12-20); Aspartate Amino Transferase 24 U/L (5-31); Blood Urea Nitrogen 13 mg/dL (9-16); Calcium 9.2 mg/dL (8.4-10.2); Carbon Dioxide 30 mmol/L (22-29); Chloride 104 mmol/L (96-108); Cholesterol 190 mg/dL (<200); Estimated Glomerular Filt Rate > 60; HDL Cholesterol 61 mg/dL (>40); Magnesium 2.0 mg/dL (1.6-2.6); Potassium 3.6 mmol/L (3.3-5.1); Sodium 141 mmol/L (135-145); Total Protein 7.1 g/dL (6.5-8.0); Triglycerides 75 mg/dL (<150)
[2025-05-17 15:16] LABS: Folate 5.0 ng/mL (> or = 4.0); Vitamin B12 606 pg/mL (200-900)
[2025-05-18 11:54] LABS: Anti Nuclear Antibody Screen NEGATIVE (NEGATIVE)
== END 2025-05-17 08:58 | disposition home or self-care (01) ==
LOC: HO.HMGCX 08:57
PROVIDERS: PCP Physician Assistant Medical; Visit Provider Physician Assistant Medical
DX: Z00.00 Encounter for general adult medical examination without abnormal findings (principal); M25.551 Pain in right hip; M25.561 Pain in right knee; M25.571 Pain in right ankle and joints of right foot; M19.90 Unspecified osteoarthritis, unspecified site; E78.00 Pure hypercholesterolemia, unspecified; R73.03 Prediabetes; Z78.9 Other specified health status
CPT/HCPCS: 36415; 73502; 73564; 73610; 80053; 80061; 80076; 81003; 82306; 82607; 82746; 83036; 83735; 84100; 84425; 84443; 85025; 86038; 86140; 86431; 96127

== ENCOUNTER → 2025-05-17 10:15 | Outpatient (BNV) | payer BC, SELFPAY | PROVIDERS: PCP Physician Assistant Medical; Visit Provider Radiology Diagnostic Radiology | DX: M17.11 Unilateral primary osteoarthritis, right knee (principal); M25.461 Effusion, right knee; M16.11 Unilateral primary osteoarthritis, right hip; M77.31 Calcaneal spur, right foot | CPT/HCPCS: 73502; 73564; 73610 ==